=== PATIENT | male | born 1935 | race Caucasian/White ===

== ENCOUNTER 2016-10-26 13:46 | Inpatient (IN) | payer MEDICARE, BC ==
--- NOTE | 2016-10-26 15:31 | ERNOTE ---
Date of Service: 10/26/16 Time Seen by Provider: 10/26/16 15:04 Stated Complaint: URI Presenting Symptoms:: cough, runny nose Source: patient Exam Limitations: no limitations Immunizations: IMMUNIZATION HX Immunizations Up to Date Yes History of Influenza Vaccine No Hx Pneumococcal Vaccination Yes Allergies/Adverse Reactions: Allergies Penicillins Adverse Reaction (Severe, Verified 10/26/16 13:58) Hives sulfamethoxazole [From Bactrim] Adverse Reaction (Severe, Verified 10/26/16 13: 58) Vomiting trimethoprim [From Bactrim] Adverse Reaction (Severe, Verified 10/26/16 13:58) Vomiting Home Medications: HOME MEDICATIONS amLODIPine BESYLATE [Norvasc] 5 mg PO DAILY 12/06/14 [Last Taken 10/25/16] Leflunomide 20 mg PO DAILY 03/15/16 [Last Taken 10/25/16] Aspirin 81 mg PO DAILY #30 tab.chew 03/16/16 [Last Taken 10/25/16] predniSONE [Prednisone] 10 mg PO DAILY 06/17/16 [Last Taken 10/25/16] Fluocinonide 15 gm TP DAILY 10/26/16 [Last Taken 10/25/16] Sertraline HCl [Zoloft] 50 mg PO DAILY 10/26/16 [Last Taken 10/25/16] - History of Present Ilness Narrative: Pt. comes in with son and and c/o cough, chest congestion, nasal congestion , and rhinorrhea for three days. Pt. is hard of hearing and had a cochlear implant placed in june and pt. family states that he has also been more confused since this time. Family denies any SOB or fever but does state that pt. was wandering yesterday and thety feel that he is unsafe. Review of Systems - Review of Systems Constitutional: Present: weakness - chronic. Absent: recent illness, fever, chills, fatigue, malaise EYE: Present: no symptoms reported ENT: Present: nose congestion, nasal drainage. Absent: ear pain, sore throat Respiratory: Present: cough. Absent: shortness of breath, wheezing Cardiology: Present: no symptoms reported. Absent: chest pain, palpitations, edema Gastrointestinal/Abdominal: Present: no symptoms reported. Absent: nausea, vomiting, diarrhea, abdominal pain Genitourinary: Present: no symptoms reported Musculoskeletal: Present: no symptoms reported Skin: Present: rash - chronic Neurological: Present: pre-existing deficit, other - confusion and tics. Absent : headache, dizziness/light-headedness, numbness, tingling All Other Systems: All systems neg except as marked - Patient's Past Medical History Patient History - Medical: Arthritis, Dementia Patient History - Cardiac/Respiratory: Aneurysm, Coronary Heart Disease, COPD, Hypertension, Pneumonia, Peripheral Vascular Disease, Other Patient History - Cancer: No Hx of Cancer Patient History - Surgical Procedures: Cataracts, Other - Family History Mother Family History - Medical: , Alzheimer's Disease Father Family History - Medical: - Social History Living Situations: spouse Smoking Status: Never smoker Have you smoked in the past 12 months: No Alcohol Use: none Drug Use: none Physical Exam - Physical Exam General Appearance: Present: wd/wn, alert, no apparent distress Eye Exam: Normal inspection: bilateral, PERRL: bilateral, EOMI: bilateral Ears, Nose, Throat: Present: nasal congestion, pharyngeal erythema, tonsillar exudate - white. Absent: sinus pain/drainage Neck: Present: normal inspection, nontender. Absent: lymphadenopathy (R), lymphadenopathy (L) Respiratory: Present: no respiratory distress, normal breath sounds, no accessory muscle use, chest nontender, lungs clear Cardiovascular/Chest: Present: regular rate, rhythm, no murmur, normal peripheral pulses Gastrointestinal/Abdominal: Present: normal bowel sounds, nontender, nondistended, soft, no organomegaly Back Exam: Present: normal inspection, normal range of motion, no CVA tenderness , no vertebral tenderness Extremity Exam: Present: normal inspection, non-tender, no edema, normal range of motion Neurological Exam: Present: normal mood/affect, motor weakness - generalized, disoriented to time, disoriented to place, disoriented to situation. Absent: alert, oriented, no motor/sensory deficits, normal cerebellar test, facial droop Skin Exam: Present: warm/dry, pallor, skin rash - on trunk ant and post ED Progress - Date and Time Seen: Date and Time: 10/26/16 18:[address] Putnam and as pt. is stable and none of his problems are overtly acute but semi acute if not remote will admit to this facility for observation. - Results and Orders Patient's Lab Results:: I have reviewed the patient's lab results. - Vital Signs Patient's Vital Signs:: I have reviewed the patient's vital signs. Vital Signs: Vital Signs 10/26/16 13:50 Temperature 36.8 C Pulse Rate 85 Respiratory 16 Rate Blood Pressure 123/81 O2 Sat by Pulse 95 Oximetry - X-Ray X-Ray #1 X-Ray: chest Interpretation: Reviewed by me X-ray Comments: no acute cardiopulmonary process - CT/Ultrasound CT/Ultrasound Narrative: CT head: Findings: CT Head W/O Contrast *: Exam is degraded by significant streak artifact related to a right temporal bone implant. Age-related cortical atrophy and periventricular white matter chronic ischemic changes are present. There is mild disproportionate ventricular enlargement relative to the degree of cortical atrophy. No acute intracranial hemorrhage. No midline shift or herniation. No mass or mass effect. The cortical wong/white matter differentiation is grossly intact. Benign intracranial calcifications noted. Changes from right canal wall up mastoidectomy. There is opacification of the right mastoid air cells. The tip of the implant lead terminates at the level of the right mastoid air cell cavity, grossly unchanged in positioning as compared to the prior exam. The visualized pneumatized portions of the skull are otherwise clear. The calvarium is intact. Soft tissues appear to be unremarkable. IMPRESSION: No acute intracranial hemorrhage or mass effect. Cortical atrophy. Mild disproportionate ventricular enlargement relative to the degree of cortical atrophy; correlate for normal pressure hydrocephalus. Chronic microvascular ischemic white matter disease. Additional findings and comments are as above. Electronically signed by David Pinto D.O.. - Progress/Reassessment Chief Complaint: Upper Respiratory Symptoms Departure - Departure Clinical Impression: Normal pressure hydrocephalus, Dehydration UTI (urinary tract infection) Qualifiers: Urinary tract infection type: acute cystitis Hematuria presence: without hematuria Qualified Code(s): N30.00 - Acute cystitis without hematuria Altered mental status Qualifiers: Altered mental status type: disorientation Qualified Code(s): R41.0 - Disorientation, unspecified Disposition: [facility] Condition: Fair
[2016-10-26 15:47] LABS: Hemoglobin 13.3 gm/dL (13.5-18.0); Mean Cell Volume 78.4 fl (78-100); Mean Corpuscular Hemoglobin 25.4 pg (27-31); Mean Corpuscular Hgb Conc 32.4 g/dl (32-36); Neutrophil # 6.1 K/mm3 (1.3-6.0); Neutrophil % 76.6 % (42-75.0); Platelet Count 243 K/mm3 (150-450); Red Blood Count 5.23 M/mm3 (4.7-6.0)
[2016-10-26 16:19] LABS: Anion Gap 14.1 mmol/L (6.8-13.8); BUN/Creatinine Ratio 17.8 (9.0-21.6); Bilirubin, Total 0.3 mg/dL (0.0-1.1); Ca. Corrected For Albumin 9.5 mg/dL (8.4-10.2); Carbon Dioxide 24.8 mmol/L (24-32.6); Potassium 3.9 mmol/L (3.4-4.6); Total Protein 7.6 gm/dL (6.2-8.2)
[2016-10-26 16:21] LABS: CRP 13.8 mg/dL (0.0-0.9)
[2016-10-26] MEDS ORDERED: NORMAL SALINE 1,000 ML IV ONE (16:24)
[2016-10-26 17:13] LABS: Urine Bilirubin Negative (NEGATIVE); Urine Blood 50 /ul (NEGATIVE); Urine Ketone Negative (NEGATIVE); Urine Protein 100 mg/dL (NEGATIVE); Urine Specific Gravity >=1.030 SP.GR. (1.005-1.030); Urine Urobilinogen Normal (NORMAL)
[2016-10-26 17:39] LABS: Urine Color Yellow; Urine Nitrite Positive (NEGATIVE)
[2016-10-26 17:40] LABS: Urine Appearance Turbid; Urine Bacteria 1+; Urine Fine Granular Cast 0-5 /LPF; Urine Hyaline Cast 0-5 /LPF; Urine WBC >50 /hpf (0-5)
[2016-10-26] MEDS: CIPROFLOXACIN LACTATE/D5W 400 MG/200 ML BAG IV SCH (18:16)
[2016-10-26] MEDS: DEXTROSE 5%-0.5 NORMAL SALINE 1,000 ML IV PRN (20:37)
--- NOTE | 2016-10-26 21:29 | HP ---
Chief Complaint - Chief Complaint Date of Service: 10/26/16 Time of Service: 21:00 Chief Complaint: cough, AMS History of Present Illness: Pt is an 80 year old male pt of Dr. Boyce with a PMH significant for:COPD, renal dx, RA, CAD, and HTN who presented to ER with son and with c/o cough , chest congestion, nasal congestion, and rhinorrhea for the past three days. Unfortunately pt does not have any family with him at present time and is only alert to self, therefore most information obtained is from EMR and prior records. Per EMR pt is hard of hearing and had a cochlear implant placed in June, pt family states that he has been more confused since then. Family denies any SOB, CP, n/v/d or fever. Chest xray was without any acute abnormalities. Laboratory findings were significant for: BUN/Creat 26/1.46, ESR 82, CRP 13.8, negative influenza, UA + (+1 bacteria, +nitrates, 100 esterase). He will be admitted to in pt observation for treatment of urinary tract infection with IV antibiotics and IV hydration. - Patient's Past Medical History Patient History - Medical: Arthritis, Dementia Patient History - Cardiac/Respiratory: Aneurysm, Coronary Heart Disease, COPD, Hypertension, Pneumonia, Peripheral Vascular Disease, Other Patient History - Cancer: No Hx of Cancer Patient History - Surgical Procedures: Cataracts, Other - cochlear implant 2015 Patient History - Other: None - Family History Mother Family History - Medical: , Alzheimer's Disease Family History - Cancer: Other - uterine Father Family History - Medical: Family History - Cancer: Throat - Social History Living Situations: spouse Does anyone smoke in the home?: No Smoking Status: Former smoker Have you smoked in the past 12 months: No Alcohol Use: none Drug Use: none - Immunizations Immunizations Up to Date: Yes Hx Pneumococcal Vaccination: Yes History of Influenza Vaccine: Yes Review Of Systems (GEN) - Review of Systems Generalized/Overall Review: Present: No Symptoms Reported EENTM: Present: Nose Congestion, Throat Pain Respiratory: Present: Cough Cardiac: Present: No Symptoms Reported Abdominal: Present: No Symptoms Reported Genitourinary: Present: No Symptoms Reported Musculoskeletal: Present: Joint Pain - hx of RA Neurological: Present: No Symptoms Reported Skin: Present: No Symptoms Reported Endocrine: Present: No Symptoms Reported Allergies/Adverse Reactions: Allergies Allergy/AdvReac Type Severity Reaction Status Date / Time Penicillins AdvReac Severe Hives Verified 10/27/16 01:34 sulfamethoxazole AdvReac Severe Vomiting Verified 10/27/16 01:34 [From Bactrim] trimethoprim [From Bactrim] AdvReac Severe Vomiting Verified 10/27/16 01:34 Home Medications: HOME MEDICATIONS amLODIPine BESYLATE [Norvasc] 5 mg PO DAILY 12/06/14 [Last Taken 10/25/16] Leflunomide 20 mg PO DAILY 03/15/16 [Last Taken 10/25/16] Aspirin 81 mg PO DAILY #30 tab.chew 03/16/16 [Last Taken 10/25/16] predniSONE [Prednisone] 10 mg PO DAILY 06/17/16 [Last Taken 10/25/16] Fluocinonide 15 gm TP DAILY 10/26/16 [Last Taken 10/25/16] Sertraline HCl [Zoloft] 50 mg PO DAILY 10/26/16 [Last Taken 10/25/16] Exam - Exam Vital Signs: Vital Signs - Last Taken Temp 36.8 C 10/26/16 19:10 Pulse 70 10/26/16 19:10 Resp 16 10/26/16 19:10 BP 146/68 10/26/16 19:10 Pulse Ox 96 RA 10/26/16 19:10 Constitutional: Present: Alert, Cooperative, No distress, Elderly ENT Exam: Present: hard of hearing - Cochlear implant in place on right, nasal congestion, muffled/hoarse voice Eye Exam: bilateral eye: normal inspection, PERRL Neck: Present: non-tender Back Exam: Present: normal inspection, no CVA tenderness Respiratory: Present: no respiratory distress, no accessory muscle use, decreased breath sounds, rhonchi - posterior and anterior right lung mendoza Cardiovascular/Chest: Present: normal peripheral pulses, regular rate, rhythm, no murmur Peripheral Pulses: dorsalis-pedis (R): 2+, dorsalis-pedis (L): 2+, radial (R): 2 +, radial (L): 2+ Abdomen: Present: Normal bowel sounds, soft, nontender, nondistended Extremity: Present: normal range of motion, non-tender, normal inspection, no pedal edema, no calf tenderness, normal capillary refill Skin Exam: Present: normal color, warm/dry, no cyanosis Lymphatic: Present: no adenopathy Neurologic: Present: motor weakness, disoriented x 3 Appearance: Present: denies illness, impaired insight, impaired recent memory Eye contact: Present: cooperative, good eye contact, normal speech Thoughts: Present: no apparent hallucination Diagnostic Studies: Laboratory Results Laboratory Tests 10/26/16 10/26/16 10/26/16 15:36 15:36 15:36 WBC 8.0 Hgb 13.3 L Hct 41.0 L Plt Count 243 Neutrophils % 76.6 H Lymphocytes % 8.9 L Monocytes % 12.2 H ESR 82 H Sodium 137 Potassium 3.9 BUN 26 H Creatinine 1.46 H Lactic Acid, Venous Total Bilirubin 0.3 AST 19 ALT 23 Alkaline Phosphatase 92 C-Reactive Prot, Quant 13.8 H Urine Appearance Urine Protein Urine Blood Urine Nitrate Prot Sulfosalicylic Acd Ur Leukocyte Esterase Urine RBC Urine WBC Urine Bacteria Hyaline Casts Fine Granular Casts Urine Culture Comments 10/26/16 10/26/16 15:36 16:00 WBC Hgb Hct Plt Count Neutrophils % Lymphocytes % Monocytes % ESR Sodium Potassium BUN Creatinine Lactic Acid, Venous 1.4 Total Bilirubin AST ALT Alkaline Phosphatase C-Reactive Prot, Quant Urine Appearance Turbid Urine Protein 100 H Urine Blood 50 H Urine Nitrate Positive H Prot Sulfosalicylic Acd 3+ H Ur Leukocyte Esterase 100 H Urine RBC 5-10 H Urine WBC >50 H Urine Bacteria 1+ H Hyaline Casts 0-5 H Fine Granular Casts 0-5 H Urine Culture Comments Culture to follow Assessment/Plan - Assessment/Plan (1) Altered mental status Assessment: Likely a multiple factorial component related to UTI and worsening underlying dementia. + family history of Alzheimer dx. Will continue to closely monitor. Head CT with mild disproportionate ventricular enlargement relative to the degree of cortical atrophy. Possible normal pressure hydrocephalus? Problem: Acute Qualifiers: Altered mental status type: disorientation Qualified Code(s): R41.0 - Disorientation, unspecified (2) Dehydration Assessment: Will continue with IVF overnight. -D5.45 @125ml/hr Problem: Acute (3) UTI (urinary tract infection) Assessment: Urine culture pending. -Cipro 400mg daily IV Problem: Acute Qualifiers: Urinary tract infection type: acute cystitis Hematuria presence: without hematuria Qualified Code(s): N30.00 - Acute cystitis without hematuria (4) Rheumatoid arthritis Assessment: Stable -Prednisone 10mg daily -Arava 20mg PO daily Problem: Chronic (5) Stage III chronic kidney disease Assessment: BUN/Creat is slightly elevated at 26/1.46, baseline is around 1.4. Will treat with IV fluid overnight and repeat labs in the am. Limit any nephro toxic drugs. -CMP in am -MIVF Problem: Chronic
[2016-10-27] MEDS: CIPROFLOXACIN LACTATE/D5W 400 MG/200 ML BAG IV SCH ×2 (05:42→17:12)
[2016-10-27 07:09] LABS: Hematocrit 36.3 % (42.0-52.0); Hemoglobin 11.6 gm/dL (13.5-18.0); Mean Cell Volume 79.3 fl (78-100); Mean Corpuscular Hemoglobin 25.3 pg (27-31); Mean Platelet Volume 9.2 fl (6.0-9.5); Neutrophil % 71.5 % (42-75.0); Platelet Count 171 K/mm3 (150-450); Red Blood Count 4.58 M/mm3 (4.7-6.0); Red Cell Distribution Width 17.8 % (11.5-14.0)
[2016-10-27 07:32] LABS: Albumin * 2.6 gm/dl (3.4-5.0); BUN/Creatinine Ratio 16.8 (9.0-21.6); Bilirubin, Total 0.2 mg/dL (0.0-1.1); Ca. Corrected For Albumin 9.2 mg/dL (8.4-10.2); Calcium * 8.4 mg/dL (7.9-10.9); Carbon Dioxide 22.7 mmol/L (24-32.6); Potassium 3.7 mmol/L (3.4-4.6); Total Protein 6.6 gm/dL (6.2-8.2)
[2016-10-27] MEDS ORDERED: FLUOCINONIDE APPL TP SCH (09:00)
[2016-10-27] MEDS: ASPIRIN 81 MG TAB.CHEW PO SCH (09:48)
[2016-10-27] MEDS: SERTRALINE HCL 50 MG TABLET PO SCH (09:48)
[2016-10-27] MEDS: predniSONE 10 MG TABLET PO SCH (09:48)
[2016-10-27] MEDS: amLODIPine BESYLATE 5 MG TABLET PO SCH (09:48)
[2016-10-27] MEDS: LEFLUNOMIDE 20 MG TABLET PO SCH (09:48)
[2016-10-27] MEDS: FLUOCINONIDE 15 APPL TUBE TP SCH (09:49)
[2016-10-27] MEDS: NYSTATIN 15 APPL BTL TP SCH ×2 (09:49→20:22)
[2016-10-27] MEDS: DEXTROSE 5%-0.5 NORMAL SALINE 1,000 ML IV PRN ×2 (10:58→19:55)
--- NOTE | 2016-10-27 12:36 | PN ---
Subjective - Date and Time Seen Date: 10/27/16 Time: 12:31 Subjective Narrative: Patient is totally confused. His urine is grwing Gram negative bacili. BC is pending. answers most of my questions with just "yup"s Objective - Review of Systems Generalized/Overall Review: Reports: No Symptoms Reported EENTM: Reports: No Symptoms Reported Respiratory: Reports: No Symptoms Reported Cardiac: Reports: No Symptoms Reported Abdominal: Reports: No Symptoms Reported Genitourinary Symptoms: Reports: No Symptoms Reported Musculoskeletal Complaints: Reports: No Symptoms Reported Neurological: Reports: No Symptoms Reported Skin: Reports: No Symptoms Reported Endocrine: Reports: No Symptoms Reported Misc: All systems neg except as marked - ROS is is unreliable due to his mental status - Vitals Vitals: Last Vital Signs Temp 37 C 10/27/16 10:49 Pulse 82 10/27/16 10:49 Resp 18 10/27/16 10:49 BP 146/68 10/27/16 10:49 Pulse Ox 96 10/27/16 10:49 - Exam Constitutional: Present: Alert - AAO x 1 ENT Exam: Present: hearing grossly normal Neck: Present: supple Breasts: Present: Exam deferred Respiratory: Present: decreased breath sounds, No rales, No wheezing Cardiovascular/Chest: Present: regular rate, rhythm, no JVD, no murmur Abdomen: Present: Normal bowel sounds, soft, nontender, nondistended Extremity: Present: no pedal edema, no calf tenderness Assessment/Plan - Problems/Diagnosis (1) Altered mental status Problem: Acute Qualifiers: Altered mental status type: disorientation Qualified Code(s): R41.0 - Disorientation, unspecified Narrative: due to acute toxic/metabolic encephalopathy. I do not see in his PMH a h/o dementia. UCS is growing Gram Negative Bacili . BC is pending. will transfer [facility] 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 (2) Dehydration Problem: Acute (3) UTI (urinary tract infection) Problem: Acute Qualifiers: Urinary tract infection type: acute cystitis Hematuria presence: without hematuria Qualified Code(s): N30.00 - Acute cystitis without hematuria (4) Rheumatoid arthritis Problem: Chronic Qualifiers: Rheumatoid arthritis location: multiple sites Qualified Code(s): M05.79 - Rheumatoid arthritis with rheumatoid factor of multiple sites without organ or systems involvement
[2016-10-28] MEDS: CIPROFLOXACIN LACTATE/D5W 400 MG/200 ML BAG IV SCH ×2 (05:01→17:42)
[2016-10-28] MEDS: DEXTROSE 5%-0.5 NORMAL SALINE 1,000 ML IV PRN (08:33)
[2016-10-28] MEDS: LEFLUNOMIDE 20 MG TABLET PO SCH (08:35)
[2016-10-28] MEDS: NYSTATIN 15 APPL BTL TP SCH ×2 (08:35→20:43)
[2016-10-28] MEDS: SERTRALINE HCL 50 MG TABLET PO SCH (08:35)
[2016-10-28] MEDS: predniSONE 10 MG TABLET PO SCH (08:35)
[2016-10-28] MEDS: amLODIPine BESYLATE 5 MG TABLET PO SCH (08:35)
[2016-10-28] MEDS: ASPIRIN 81 MG TAB.CHEW PO SCH (08:35)
[2016-10-28] MEDS: FLUOCINONIDE 15 APPL TUBE TP SCH (08:36)
--- NOTE | 2016-10-28 08:38 | PN ---
Subjective - Date and Time Seen Date: 10/28/16 Time: 08:33 Subjective Narrative: Patient clover entorely hear me. Hearing aide not working. per Nurse still AAO x 1. Objective - Review of Systems Generalized/Overall Review: Reports: No Symptoms Reported EENTM: Reports: No Symptoms Reported Respiratory: Reports: No Symptoms Reported Cardiac: Reports: No Symptoms Reported Abdominal: Reports: No Symptoms Reported Genitourinary Symptoms: Reports: No Symptoms Reported Musculoskeletal Complaints: Reports: No Symptoms Reported Neurological: Reports: No Symptoms Reported Skin: Reports: No Symptoms Reported Endocrine: Reports: No Symptoms Reported Misc: All systems neg except as marked - ROS are unobtainable. - Vitals Vitals: Last Vital Signs Temp 36.8 C 10/28/16 03:00 Pulse 55 L 10/28/16 03:00 Resp 18 10/28/16 03:00 BP 127/62 10/28/16 03:00 Pulse Ox 99 10/28/16 03:00 - Exam Constitutional: Present: Alert - AAO x 1, Cooperative ENT Exam: Present: other - cannot hear at today Neck: Present: supple Breasts: Present: Exam deferred Respiratory: Present: decreased breath sounds, No rales, No wheezing Cardiovascular/Chest: Present: regular rate, rhythm, no JVD, no murmur Abdomen: Present: Normal bowel sounds, soft, nontender, nondistended Extremity: Present: no pedal edema, no calf tenderness Assessment/Plan - Problems/Diagnosis (1) Altered mental status Problem: Acute Qualifiers: Altered mental status type: disorientation Qualified Code(s): R41.0 - Disorientation, unspecified Narrative: due to acute toxic/metabolic encephalopathy on top of probable underlying dementia or beginning dementia. (2) Dehydration Problem: Resolved (3) UTI (urinary tract infection) Problem: Acute Qualifiers: Urinary tract infection type: acute cystitis Hematuria presence: without hematuria Qualified Code(s): N30.00 - Acute cystitis without hematuria (4) Rheumatoid arthritis Problem: Chronic Qualifiers: Rheumatoid arthritis location: multiple sites Rheumatoid factor presence: with rheumatoid factor Qualified Code(s): M05.79 - Rheumatoid arthritis with rheumatoid factor of multiple sites without organ or systems involvement
[2016-10-28] MEDS: ENOXAPARIN SODIUM 40 MG/0.4 ML SYRG SC SCH (09:20)
[2016-10-28] MEDS ORDERED: LORazepam 2 MG/ML DISP.SYRIN IV ONE (09:37)
[2016-10-28] MEDS: LORazepam 0.5 MG TABLET PO PRN (23:02)
[2016-10-29] MEDS: CIPROFLOXACIN LACTATE/D5W 400 MG/200 ML BAG IV SCH (05:44)
[2016-10-29 07:46] LABS: Hematocrit 36.2 % (42.0-52.0); Hemoglobin 11.7 gm/dL (13.5-18.0); Mean Cell Volume 78.9 fl (78-100); Mean Corpuscular Hemoglobin 25.5 pg (27-31); Mean Corpuscular Hgb Conc 32.3 g/dl (32-36); Mean Platelet Volume 10.1 fl (6.0-9.5); Neutrophil # 6.4 K/mm3 (1.3-6.0); Neutrophil % 76.5 % (42-75.0); Platelet Count 210 K/mm3 (150-450); Red Blood Count 4.59 M/mm3 (4.7-6.0); Red Cell Distribution Width 17.4 % (11.5-14.0); White Blood Count 8.4 K/mm3 (4.0-10.5)
[2016-10-29 07:51] LABS: Anion Gap 14.6 mmol/L (6.8-13.8); Calcium * 8.7 mg/dL (7.9-10.9); Potassium 3.6 mmol/L (3.4-4.6)
[2016-10-29] MEDS: SERTRALINE HCL 50 MG TABLET PO SCH (08:47)
[2016-10-29] MEDS: ENOXAPARIN SODIUM 40 MG/0.4 ML SYRG SC SCH (08:47)
[2016-10-29] MEDS: ASPIRIN 81 MG TAB.CHEW PO SCH (08:47)
[2016-10-29] MEDS: LEFLUNOMIDE 20 MG TABLET PO SCH (08:47)
[2016-10-29] MEDS: amLODIPine BESYLATE 5 MG TABLET PO SCH (08:47)
[2016-10-29] MEDS: FLUOCINONIDE 15 APPL TUBE TP SCH (08:48)
[2016-10-29] MEDS: NYSTATIN 15 APPL BTL TP SCH (08:48)
[2016-10-29] MEDS: predniSONE 10 MG TABLET PO SCH (08:48)
--- NOTE | 2016-10-29 09:55 | DS ---
(1) Altered mental status Diagnosis(s): acute encephalopathy toxic/metabolic over a baseline dementia. Problem: Acute Qualifiers: Altered mental status type: disorientation Qualified Code(s): R41.0 - Disorientation, unspecified (2) Dehydration Diagnosis(s): Pseudomonas Aeroginosa on culture. Problem: Resolved (3) UTI (urinary tract infection) Problem: Acute Qualifiers: Urinary tract infection type: acute cystitis Hematuria presence: without hematuria Qualified Code(s): N30.00 - Acute cystitis without hematuria (4) Rheumatoid arthritis Problem: Chronic Qualifiers: Rheumatoid arthritis location: multiple sites Rheumatoid factor presence: with rheumatoid factor Qualified Code(s): M05.79 - Rheumatoid arthritis with rheumatoid factor of multiple sites without organ or systems involvement Description of Stay: Emir Robbins, is an 80 year old male with a PMH significant for:COPD, renal dx, RA, CAD, and HTN who presented to ER on 10/26/2016with son and with c/o cough, chest congestion, nasal congestion, and rhinorrhea for the past three days. Unfortunately pt does not have any family with him when seen and was only alert to self, therefore most information obtained was from EMR and prior records. Per EMR pt is hard of hearing and had a cochlear implant placed in June, pt family states that he has been more confused since then. Family denies any SOB, CP, n/v/d or fever. Chest xray was without any acute abnormalities. Laboratory findings were significant for: BUN/Creat 26/1.46, ESR 82, CRP 13.8, negative influenza, UA + (+1 bacteria, +nitrates, 100 esterase). He will be admitted to in pt observation for treatment of urinary tract infection with IV antibiotics and IV hydration. He continued to be confused while in the floor. His urine grew Pseudomonas aeroginosa sensitive to the Cipro he was getting. His BC showed NG in 48 hours. The patient is wanting to go home and I agree as his confusion might get a little better with a familiar home environement. he will have home health. He will likely will be needing NH placement in the near future. Procedures Performed: none Discharge Disposition: Home self care Disposition: Home self-care Condition: Fair Discharge Activity: Activity as tolerated Discharge Diet: General/regular food Referrals: Mauricio Boyce MD [Primary Care Provider] - Additional Patient Instructions (free text): TCM appointment. Call Margaret at [phone] with follow up. Refer to HH. Follow up with me in 1 week. Please make an appointment with Dr. Victor as an outpatient for generalized anxiety disorder. Prescriptions (Any new or edited meds): Ciprofloxacin HCl [Cipro] 500 mg PO BID #14 tab LORazepam [Ativan] 0.25 mg PO BID PRN #30 tablet PRN Reason: Anxiety Complete Home Medications List: Complete Home Medication List: amLODIPine BESYLATE [Norvasc] 5 mg PO DAILY 12/06/14 Leflunomide 20 mg PO DAILY 03/15/16 Aspirin 81 mg PO DAILY #30 tab.chew 03/16/16 predniSONE [Prednisone] 10 mg PO DAILY 06/17/16 Fluocinonide 15 gm TP DAILY 10/26/16 Sertraline HCl [Zoloft] 50 mg PO DAILY 10/26/16 Ciprofloxacin HCl [Cipro] 500 mg PO BID #14 tab 10/29/16 LORazepam [Ativan] 0.25 mg PO BID PRN #30 tablet 10/29/16
[2016-10-29 09:57] VITALS: BP 158/83
[2016-10-29] MEDS: LORazepam 0.5 MG TABLET PO PRN (12:53)
== END 2016-10-29 15:55 | disposition home or self-care (01) | DRG 689 ==
LOC: ER 13:46 → MS 18:15 → OBSVTOIN 10-27 11:25
PROVIDERS: ADMIT Internal Medicine; ATTEND Internal Medicine
DX: N30.00 Acute cystitis without hematuria (principal); G92 Toxic encephalopathy; B96.5 Pseudomonas (aeruginosa) (mallei) (pseudomallei) as the cause of diseases classified elsewhere; E86.0 Dehydration; I12.9 Hypertensive chronic kidney disease with stage 1 through stage 4 chronic kidney disease, or unspecified chronic kidney disease; N18.3 Chronic kidney disease, stage 3 (moderate); M05.79 Rheumatoid arthritis with rheumatoid factor of multiple sites without organ or systems involvement; Z96.21 Cochlear implant status; F03.90 Unspecified dementia, unspecified severity, without behavioral disturbance, psychotic disturbance, mood disturbance, and anxiety
CPT/HCPCS: 36415; 70450; 71020; 80048; 80053; 81001; 83605; 85025; 85652; 86140; 87040; 87077; 87081; 87086; 87186; 87400; 96365; 97116; 97162; 97530; 99283; G0378

== ENCOUNTER 2016-11-19 14:53 | Emergency (ER) | payer MEDICARE, BC ==
[2016-11-19 15:12] VITALS: BP 146/71
--- OUTSIDE RECORDS SUMMARY | 2016-11-19 16:23 | XMS REPORT | Continuity of Care Document ---
:1935 Author Organization [facility] ([facility]) Address [address] [place] [address] Phone [phone] Care Team Providers Name Role Phone Hosp, [place] Primary Care Provider [phone] Source Comments This disclosure is being made pursuant to the Care Everywhere program, applicable federal and state laws, and may not contain all informaitonavailable regarding this patient.[facility] ([facility]) Active Allergies and Adverse Reactions Allergen Noted Date Severity Reactions Comments Penicillin G Urticaria (Hives) Sulfamethoprim Ss 09/15/2015 Other Non-Immunologic Bactrim: Pt taking Reaction Methotrexate. Current Medications Prescription Sig. Disp. Refills Start Date End Date Status amLODIPine (NORVASC) take 5 mg by mouth Active 5 mg tablet daily. aspirin (ASPIR-81) 81 take 81 mg by Active mg EC tablet mouth daily. ACETAMINOPHEN take 1-2 Tabs by Active (TYLENOL ARTHRITIS mouth as needed. PO) VIT C/KARYN Take by mouth Active AC/LUT/COPPER/ZNOX daily. (PRESERVISION LUTEIN PO) albuterol-ipratropium Use 3 mL by Active 2.5-0.5 mg/3 mL inhalation every 6 inhalation solution hours as needed. albuterol PO Take 90 mcg by Active mouth every 6 hours as needed. fluticasone 50 Use 2 Sprays into Active mcg/Actuation nasal both nostrils spray daily. traMADol 50 mg tablet Take 50 mg by Active mouth 4 times daily as needed. leflunomide 20 mg Take 1 tablet (20 30 tablet 5 03/31/2016 Active tablet mg total) by mouth daily. doxycycline hyclate Take 1 capsule 30 capsule 11 04/14/2016 Active 100 mg capsule (100 mg total) by mouth every Tuesday, Tuesday, and Tuesday. acetaminophen 500 mg Take 1 tablet (500 60 tablet 11 07/02/2016 Active tablet mg total) by mouth every 6 hours as needed. traMADol 50 mg tablet Take 1 tablet (50 30 tablet 2 07/02/2016 Active mg total) by mouth 4 times daily as needed. acetaminophen 325 mg Take 2 tablets 60 tablet 3 07/02/2016 Active tablet (650 mg total) by mouth every 4 hours as needed. traMADol 50 mg tablet Take 1 tablet (50 30 tablet 0 07/02/2016 Active mg total) by mouth every 6 hours as needed. predniSONE 20 mg Take 0.5 tablets 60 tablet 1 07/02/2016 Active tablet (10 mg total) by mouth daily. docusate (COLACE) 100 Take 1 capsule 60 capsule 0 07/03/2016 Active mg capsule (100 mg total) by mouth 2 times daily as needed. SERTraline 50 mg 1 tablet daily. 4 09/11/2016 Active tablet fluocinoNIDE 0.1 % 2 10/09/2016 Active cream Active Problems Problem Noted Date Eczema of both upper extremities 10/18/2016 Overview: And on trunk, legs. Followed by PARRISH Lopez. Decreased hearing 06/23/2016 Sudden hearing loss 03/20/2014 Imbalance 03/20/2014 Profound hearing loss of left ear 03/20/2014 Macular degeneration, bilateral 09/08/2011 Overview: Per ophthalmology note 08/2011, Dr. Abraham (see media). 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 RF+, CCP+, erosions on plain films (wrists, MCP. PIP, MTP) Rx history: Salsalate since ~2005 prior to diagnosis from outside, helpful for the swelling and pain. Methotrexate 03/2009 - 01/2016, dc'ed for nausea and dizziness. Switched to leflunomide. Hydroxychloroquine 03/2009 - 08/2011 dc'd for eye concerns (last eye exam: 07/09, Dr. Abraham, report in media) Sulfasalazine 11/2010 - Leflunomide - Hypertension 04/03/2009 Erectile dysfunction 04/03/2009 Gout - possible 04/03/2009 Overview: Not crystal proven. Therapy: On allopurinol for years, increase allopurinol from 100mg/day to 300mg/day on 03/31/09 [uric acid=6.0mg/dl]. Last attack? Possible ankle, Oct 2010. Osteoarthritis 04/03/2009 Cerebral atherosclerosis 10/01/2008 Aneurysm of artery of lower extremity 10/01/2008 Abdominal aneurysm without mention of rupture 10/01/2008 Overview: Vascular risk factors: H/o smoking, Hypertension and AAA-6.8, Oct 2008. Cardiac History: None Vascular Procedures: 10/16/08 s/p EVAR with Laverne device (body 23x18 and contra limb on the RT with 14.5x14 device) Pre-close bilaterally groins 10/16/08 LT common iliac stent during same time with EVAR Antithrombotic Therapy: ASA daily started Sep 2008, not currently on a statin Aorta Screen: AAA, 6.8cm on outside CT, s/p EVAR Oct 2008 Carotid Screen: 0-15% bilateral Popliteal aneurysm: no aneurysmal disease on duplex at previous visit 04/02/14: No endoleak on US, patent graft Resolved Problems Problem Noted Date Resolved Date Pain in joint, hand 01/20/2009 04/03/2009 Peripheral vascular disease, unspecified 10/01/2008 04/03/2009 Most Recent Encounters Date Type Specialty Providers Description 11/15/2016 Office Visit Audiology Michael Chavarria MD Dx: Sensorineural William, Chelle A hearing loss, bilateral (Primary Dx) 11/12/2016 Orders/Notes Internal Medicine - Margaret Baumann, Primary CHILDCARE DIRECTOR 10/18/2016 Office Visit Internal Medicine - Leonidas Esqueda MD Chief Comp: Patient Primary Margaret Baumann, Reported Reason For CHILDCARE DIRECTOR Visit 10/18/2016 Office Visit Pathology Talia Harris Chief Comp: Patient MD Carlos Manuel Reported Reason For Lab Services, Pfp Visit 10/18/2016 Office Visit Med Rheumatology Talia Harris Dx: Rheumatoid MD Carlos Manuel arthritis with rheumatoid factor of multiple sites without organ or systems involvement (Primary Dx) 10/14/2016 Telephone Internal Medicine - Margaret Baumann, Chief Comp: Labs Only Primary CHILDCARE DIRECTOR 10/14/2016 Orders/Notes Internal Medicine - Margaret Baumann, Dx: Iron deficiency Primary CHILDCARE DIRECTOR anemia (Primary Dx) 08/26/2016 Office Visit Audiology Michael Chavarria MD Dx: Sensorineural Chelle Thomas hearing loss, bilateral (Primary Dx) Immunizations Name Dates Previously Given Next Due Influenza, high dose 10/18/2016 Influenza, unspecified 07/14/2015,07/10/2013,06/28/2012,07/11,10/16/2008 Pneumococcal Conjugate, PCV13 (Prevnar 10/22/2015 13) Pneumococcal Polysaccharide, PPSV23 08/05/2016 (Pneumovax 23) Social History Tobacco Use Types Packs/Day Years Used Date Former Smoker Cigarettes 1 55 Quit: 06/10/2007 Smokeless Tobacco: Never Used Tobacco Cessation:Counseling Given: Yes Comments:quit 2006. Alcohol Use Drinks/Week oz/Week Comments No Last Filed Vital Signs Vital Sign Reading Time Taken Blood Pressure 147/65 10/18/2016 11:43 AM CONTACT CENTER ASSOCIATE Pulse 59 10/18/2016 11:43 AM CONTACT CENTER ASSOCIATE Temperature 36 C (96.8 F) 10/18/2016 11:43 AM CONTACT CENTER ASSOCIATE Respiratory Rate 15 07/03/2016 9:20 AM CDT Height 1.727 m (5' 7.99") 10/18/2016 11:43 AM CONTACT CENTER ASSOCIATE Weight 77.2 kg (170 lb 3.1 oz) 10/18/2016 11:43 AM CONTACT CENTER ASSOCIATE Body Mass Index 25.88 10/18/2016 11:43 AM CONTACT CENTER ASSOCIATE Oxygen Saturation 93% 08/12/2016 9:52 AM CDT Plan of Care Date Type Specialty Providers Description 01/18/2017 Appointment Med Rheumatology Talia Harris MD [address] [place] [address] [phone] (Fax) Chief Comp: Patient Marysol Gill PA-C [address] [place] [address] [phone] (Fax) Reported Reason For Visit 03/16/2017 Appointment Ophthalmology - Navneet Guillory, Chief Comp: Patient Specialty MD Reported Reason For [address] [place] [address] [phone] (Fax) 05/16/2017 Appointment Med Rheumatology Talia Harris Chief Comp: Patient MD Reported Reason For [address] [place] [address] [phone] (Fax) 05/18/2017 Appointment Ophthalmology - [address]ir [address], Chief Comp: Patient Specialty MD Reported Reason For [address] [place] [address] [phone] (Fax) Health Maintenance Due Date Last Done Comments Hepatitis B Vaccine (1 of 3 1935 - Primary Series) Tdap Vaccine 12/23/1946 Lipid Disorder Screening 12/23/1953 Td Vaccine 12/23/1953 Colonoscopy 12/23/1985 Zoster Vaccine 1995 Pneumococcal Vaccine Completed 08/05/2016, 10/22/2015 Influenza Vaccine: Seasonal Completed 10/18/2016, Additional history exists 07/14/2015, 07/10/2013 Results from Last 3 Months DIFFERENTIAL (10/18/2016 12:45 PM) Component Value Range % Neutrophils-Auto Diff 77.5 % Neutrophils-Auto Diff 9120(H) 4085-6885 /MM3 % Lymphocytes-Auto Diff 9.9 % Lymphocytes-Auto Diff 8659 009-0443 /MM3 % Monocytes-Auto Diff 8.3 % Monocytes-Auto Diff 980(H) 130-860 /MM3 % Eosinophils-Auto Diff 2.4 % Eosinophils-Auto Diff 280 40-390 /MM3 % Basophils 0.5 % Basophils-Auto Diff 60 10-136 /MM3 % Immature Granulocytes-Auto Diff 1.4 % Immature Granulocytes-Auto Diff 170 /MM3 Specimen Whole Blood CBC (COMPLETE BLOOD COUNT) (10/18/2016 12:45 PM) Component Value Range WBC Count 11.8(H) 3.7-10.5 K/MM3 RBC Count 4.95 4.50-6.20 M/MM3 Hemoglobin 12.4(L) 13.2-17.7 g/dL Hematocrit 39(L) 40-52 % MCV (Mean Corpuscular Volume) 79(L) 82-99 FL MCH (Mean Corpuscular Hemoglobin) 25 25-35 PG MCHC (Mean Corpuscular Hemoglobin Concentration) 32 32-36 % Platelet Count 293 150-400 K/MM3 MPV (Mean Platelet Volume) 10.4 9.4-12.3 FL RBC Dist Width-STD 52.7(H) 35.1-43.9 FL RBC Distrib Width 18.6(H) 9.0-14.5 % Nucleated RBC 0 /100 WBC Specimen Whole Blood BLOOD CELL MORPHOLOGY (10/18/2016 12:45 PM) Component Value Range Additional Findings Occasional ovalocytes. Specimen Whole Blood URIC ACID (10/18/2016 12:45 PM) Component Value Range Uric Acid 5.3 3.4-7.0 mg/dL Specimen Blood THYROID STIMULATING HORMONE (TSH), WITH REFLEX FREE T-4 (10/18/2016 12:45 PM) Component Value Range TSH, Reflex 1.94 0.27-4.20 IU/mL Specimen Blood CALCIUM (10/18/2016 12:45 PM) Component Value Range Calcium 9.1 8.5-10.5 mg/dL Specimen Blood VITAMIN D, 25-HYDROXY (10/18/2016 12:45 PM) Component Value Range Vitamin D, 25-OH 18(L)Comment: 20-80 ng/mL This assay accurately quantifies the sum of 25-hydroxyvitamin D3 and 25- hydroxyvitamin D2. Endocrine Society, [place] of Medicine (IOM), and World Health Organization (WHO) guidelines designate 25-h ydroxyvitamin D plasma concentrations below 20 ng/mL as deficient, based on increased frequency of adverse outcomes (e.g., osteoporotic fractures). 25-Hydroxyvitamin D reference ranges are a controversial topic, with some authorities suggesting optimal concentrations should be 30 ng/mL or higher based on correlations of 25-hydroxyvitamin D plasma concentrations with physiological parameters such as parathyroid hormone or calcium concentrations. However, optimal 25-hydroxyvitamin D concentrations greater than 20 ng/mL may be considered for specific disease conditions. Vitamin D toxicity is uncommon but may be seen at 25-hydroxyvitamin D concentrations greater than 150 ng/mL. Specimen Blood ERYTHROCYTE SEDIMENTATION RATE (10/18/2016 12:45 PM) Component Value Range ESR (Erythrocyte Sedimentation Rate) 26(H) 0-15 mm/Hr Specimen Whole Blood C-REACTIVE PROTEIN (10/18/2016 12:45 PM) Component Value Range CRP (C-Reactive Protein) 4.7(H) <=0.5 mg/dL Specimen Blood CREATININE (10/18/2016 12:45 PM) Component Value Range Creatinine 1.2Comment: 0.6-1.2 mg/dL Creatinine switched to enzymatic method on 02/16/2011.GFR equation switched to IDMS-traceable MDRD equation on 02/16/2011. Calculated GFR values are not valid in clinical settings where serum creatinine is changing. Calculated GFR 58(L) >60 mL/min/1.73 m2 Specimen Blood ALANINE AMINOTRANSFERASE (10/18/2016 12:45 PM) Component Value Range ALT 13Comment: 0-41 U/L The upper limit of normal for alanine aminotransferase (ALT) reference ranges for adults is controversial with some authorities recommending limit as low as 30 U/L for males and 19 U/L for females. Th ere is increased incidence of subclinical liver disease (e.g., early steatohepatitis) in patients with ALT values in the range of 31-41 U/L for males and 20-33 U/L for females. ALT values should alway s be interpreted in conjunction with clinical history, physical examination findings, and, if applicable, data from other diagnostic tests. Specimen Blood ALBUMIN (10/18/2016 12:45 PM) Component Value Range Albumin 3.6 3.4-4.8 g/dL Specimen Blood ASPARTATE AMINOTRANSFERASE (10/18/2016 12:45 PM) Component Value Range AST 19Comment: 0-40 U/L Adult reference ranges updated on 09/04/13 at 830am Specimen Blood VITAMIN B12 (10/18/2016 12:45 PM) Component Value Range Vitamin B12 206(L)Comment: 211-946 pg/mL New analytical immunoassay with different reference range instituted 09/04/2013 AT 830AM Normal 211 - 946 pg/mL [id number] - 210 pg/mL Deficient<150pg/mL Specimen Blood RETICULOCYTES (10/18/2016 12:45 PM) Component Value Range RBC Count 4.95 4.50-6.20 M/MM3 Retic-% 1.0 0.4-2.1 % Automated Retic, Absolute Count 48.5 12.0-130.0 K/MM3 Specimen Whole Blood IRON PANEL (IRON, TRANSFERRIN AND % SATURATION) (10/18/2016 12:45 PM) Component Value Range Iron, Blood 43(L) 59-158 g/dL Transferrin 190(L) 200-360 mg/dL Iron % Saturation 16(L)Comment: 20-50 % Transferrin saturation is not reliable when there are high ferritin concentrations greater than 1,200 ng/mL. Specimen Blood FERRITIN (10/18/2016 12:45 PM) Component Value Range Ferritin 242.4 30.0-400.0 ng/mL Specimen Blood CBC WITH DIFFERENTIAL (10/18/2016 12:45 PM) Specimen Whole Blood Narrative The following orders were created for panel order CBC WITH DIFFERENTIAL. Procedure Abnormality Status --------- ------ CBC (COMPLETE BLOOD COUNT)[[id number]] AbnormalFinal result DIFFERENTIAL[[id number]] AbnormalFinal result Please view results for these tests on the individual orders.
--- NOTE | 2016-11-19 16:24 | ERNOTE ---
Head Injury HPI - Narrative Date of Service: 11/19/16 - General Injury to: head Time Seen by Provider: 11/19/16 16:02 Source: patient, family, other - Exam Limitations: hard of hearing - Immun/Allergies/Home Medications Immunization: IMMUNIZATION HX Immunizations Up to Date Yes History of Influenza Vaccine Yes Hx Pneumococcal Vaccination Yes Allergies/Adverse Reactions: Allergies Allergy/AdvReac Type Severity Reaction Status Date / Time Penicillins AdvReac Severe Hives Verified 11/19/16 15:12 sulfamethoxazole AdvReac Severe Vomiting Verified 11/19/16 15:12 [From Bactrim] trimethoprim [From Bactrim] AdvReac Severe Vomiting Verified 11/19/16 15:12 Home Medications: HOME MEDICATIONS amLODIPine BESYLATE [Norvasc] 5 mg PO DAILY 12/06/14 [Last Taken 10/25/16] Leflunomide 20 mg PO DAILY 03/15/16 [Last Taken 10/25/16] Aspirin 81 mg PO DAILY #30 tab.chew 03/16/16 [Last Taken 10/25/16] predniSONE [Prednisone] 10 mg PO DAILY 06/17/16 [Last Taken 10/25/16] Fluocinonide 15 gm TP DAILY 10/26/16 [Last Taken 10/25/16] Sertraline HCl [Zoloft] 50 mg PO DAILY 10/26/16 [Last Taken 10/25/16] LORazepam [Ativan] 0.25 mg PO BID PRN #30 tablet 10/29/16 [Last Taken Unknown] - History of Present Illness Narrative: brought patient in to have his head checked. She has frequent falls and falls especially when he tries to walk backwards with his walker. Today when he tripped and fell he hit his head on the sink/counter and had swelling on his head so his wanted to make sure his head was ok. He denies other injuries. he denies N/T/W. No LOC. no neck or back pain. He and have no other concern for injury. No CP or SOB. Occurred: just prior to arrival Location Occurred: home Severity: other - denies pain right now Head Injury Location: parietal Method of Injury: Reports: fell Reason for Fall: Reports: lost balance Loss of Consciousness: Reports: no loss of consciousness Associated Symptoms: Denies: chest pain, shortness of breath, headaches, neck pain, weakness, other injuries Review of Systems - Review of Systems Constitutional: Absent: fever EYE: Present: no symptoms reported ENT: Present: no symptoms reported Respiratory: Absent: shortness of breath Cardiology: Absent: chest pain Gastrointestinal/Abdominal: Absent: abdominal pain Musculoskeletal: Absent: back pain, neck pain Skin: Present: other - chronic rash, no acute lacerationn Neurological: Present: other - no new focal N/T/W.. Absent: weakness - Patient's Past Medical History Patient History - Medical: Arthritis, Dementia Patient History - Cardiac/Respiratory: No pertinent hx Patient History - Cancer: No Hx of Cancer Patient History - Surgical Procedures: Cataracts, Other Patient History - Other: None - Family History Mother Family History - Medical: , Alzheimer's Disease Family History - Cancer: Other Father Family History - Medical: Family History - Cancer: Throat - Social History Living Situations: home Abuse History: No History of abuse Psych History: No pertinent hx Does anyone smoke in the home?: No Smoking Status: Former smoker Alcohol Use: none Drug Use: none - Immunizations Immunizations Up to Date: Yes Hx Pneumococcal Vaccination: Yes History of Influenza Vaccine: Yes Physical Exam - Physical Exam General Appearance: Present: alert, no apparent distress, other - There is a 3cm hematoma left psoterior parietal. No clinical skull Fx. No laceration or skin break. Eye Exam: Normal inspection: bilateral, PERRL: bilateral Ears, Nose, Throat: Present: normal ENT inspection Neck: Present: normal inspection, other - No tenderness posterior cervical spine , No pain with ROM. No clinical suggestion of C spine Fx Respiratory: Present: no respiratory distress, normal breath sounds, lungs clear Cardiovascular/Chest: Present: regular rate, rhythm Gastrointestinal/Abdominal: Present: normal bowel sounds, nontender, soft Back Exam: Absent: no CVA tenderness, no vertebral tenderness, vertebral tenderness Extremity Exam: Present: normal inspection, other - I can elicit no tendenress in the extremities. Neurological Exam: Present: alert, no motor/sensory deficits, other - No evidence of acute unilateral focal motor or sensory deficits. Skin Exam: Absent: skin rash ED Progress - Vital Signs Patient's Vital Signs:: I have reviewed the patient's vital signs. Vital Signs: Vital Signs 11/19/16 15:06 Temperature 36.3 C L Pulse Rate 78 Respiratory 16 Rate Blood Pressure 146/71 O2 Sat by Pulse 96 Oximetry - CT/Ultrasound CT/Ultrasound Narrative: i reviewed head CT report - Progress/Reassessment Chief Complaint: Head Injury Progress Note-Subjective: 11/19/16 16:23 No ICH. He wants to go home. I can find no other signs of injury. Frequent falls. I discussed warning signs and reasons to return as well as the need for close f/u. Departure Clinical Impression: Head injury - Departure Disposition: Home self-care Condition: Stable Instructions: Head Injury, Adult, [id number] Additional Instructions: Rest. Close observation. Follow-up with your doctor in 3 days for a re-check. Return for any area of new pain,. numbness, tingling, weakness or if your condition worsens or changes in any way.
== END 2016-11-19 16:26 | disposition home or self-care (01) ==
LOC: ER 14:53
DX: S09.90XA Unspecified injury of head, initial encounter (principal); Z87.891 Personal history of nicotine dependence; W01.198A Fall on same level from slipping, tripping and stumbling with subsequent striking against other object, initial encounter; Z91.81 History of falling; Y92.008 Other place in unspecified non-institutional (private) residence as the place of occurrence of the external cause; M19.90 Unspecified osteoarthritis, unspecified site

== ENCOUNTER 2017-01-12 13:28 | Inpatient (IN) | payer MEDICARE, BC ==
[2017-01-12 15:04] LABS: Hemoglobin 12.1 gm/dL (13.5-18.0); Mean Corpuscular Hemoglobin 25.5 pg (27-31); Mean Corpuscular Hgb Conc 31.8 g/dl (32-36); Mean Platelet Volume 9.9 fl (6.0-9.5); Neutrophil # 12.3 K/mm3 (1.3-6.0); Neutrophil % 84.6 % (42-75.0); Platelet Count 281 K/mm3 (150-450); Red Blood Count 4.75 M/mm3 (4.7-6.0); Red Cell Distribution Width 15.4 % (11.5-14.0); White Blood Count 14.6 K/mm3 (4.0-10.5)
[2017-01-12 15:17] LABS: Albumin * 2.9 gm/dl (3.4-5.0); Anion Gap 17.4 mmol/L (6.8-13.8); BUN/Creatinine Ratio 15.9 (9.0-21.6); Bilirubin, Total 0.4 mg/dL (0.0-1.1); Ca. Corrected For Albumin 9.4 mg/dL (8.4-10.2); Calcium * 8.8 mg/dL (7.9-10.9); Carbon Dioxide 22.5 mmol/L (24-32.6); Potassium 3.9 mmol/L (3.4-4.6); Total Protein 7.5 gm/dL (6.2-8.2)
[2017-01-12 15:20] LABS: Urine Bilirubin Negative (NEGATIVE); Urine Blood 50 /ul (NEGATIVE); Urine Ketone 5 mg/dL (NEGATIVE); Urine Protein 100 mg/dL (NEGATIVE); Urine Specific Gravity 1.025 SP.GR. (1.005-1.030); Urine Urobilinogen Normal (NORMAL)
[2017-01-12 15:21] LABS: Urine Appearance Cloudy; Urine Bacteria 1+; Urine Color Dark Yellow; Urine Nitrite Positive (NEGATIVE)
--- NOTE | 2017-01-12 16:25 | ERNOTE ---
Medical Problem HPI - General Chief Complaint: General Assessment Time Seen by Provider: 01/12/17 16:11 Source: patient, family Exam Limitations: clinical condition, hard of hearing - Immun/Allergies/Home Medications Immunizations: IMMUNIZATION HX Immunizations Up to Date Yes History of Influenza Vaccine Yes Hx Pneumococcal Vaccination Yes Allergies/Adverse Reactions: Allergies Penicillins Adverse Reaction (Severe, Verified 01/12/17 13:46) Hives sulfamethoxazole [From Bactrim] Adverse Reaction (Severe, Verified 01/12/17 13: 46) Vomiting trimethoprim [From Bactrim] Adverse Reaction (Severe, Verified 01/12/17 13:46) Vomiting Home Medications: HOME MEDICATIONS amLODIPine BESYLATE [Norvasc] 5 mg PO DAILY 12/06/14 [Last Taken 10/25/16] Leflunomide 20 mg PO DAILY 03/15/16 [Last Taken 10/25/16] Aspirin 81 mg PO DAILY #30 tab.chew 03/16/16 [Last Taken 10/25/16] predniSONE [Prednisone] 10 mg PO DAILY 06/17/16 [Last Taken 10/25/16] Fluocinonide 15 gm TP DAILY 10/26/16 [Last Taken 10/25/16] Sertraline HCl [Zoloft] 50 mg PO DAILY 10/26/16 [Last Taken 10/25/16] LORazepam [Ativan] 0.25 mg PO BID PRN #30 tablet 10/29/16 [Last Taken Unknown] - History of Present History Narrative: Patient has not been himself for two days, more confused very weak, barely able to walk, not eating much. He usually act like this when he has a UTI. He also fell in the bathtub and hit his chest about a week ago, has been complaining of pain with touching the area Date (Duration): 01/10/17 Review of Systems - Narrative Narrative: limited due to confusion, denies any pain - Review of Systems Constitutional: Absent: fever - Patient's Past Medical History Patient History - Medical: Arthritis, Dementia, UTI'S, Other - rheumatoid arthritis Patient History - Cardiac/Respiratory: Coronary Heart Disease, COPD, Hypertension Patient History - Cancer: No Hx of Cancer Patient History - Surgical Procedures: Cataracts, Other Patient History - Other: None - Family History Mother Family History - Medical: , Alzheimer's Disease Family History - Cancer: Other Father Family History - Medical: Family History - Cancer: Throat - Social History Living Situations: home Abuse History: No History of abuse Psych History: No pertinent hx Does anyone smoke in the home?: No Alcohol Use: none Drug Use: none - Immunizations Immunizations Up to Date: Yes Hx Pneumococcal Vaccination: Yes History of Influenza Vaccine: Yes Physical Exam - Physical Exam General Appearance: Present: wd/wn, no apparent distress, sleeping/easy to arouse, other - hard of hearing Eye Exam: Normal inspection: bilateral Ears, Nose, Throat: Present: normal pharynx Respiratory: Present: no respiratory distress, no accessory muscle use, lungs clear, chest tenderness - right lower ribs anterior axillary line, decreased breath sounds Cardiovascular/Chest: Present: regular rate, rhythm, no murmur Gastrointestinal/Abdominal: Present: normal bowel sounds, nontender, nondistended, soft Male Genitals Exam: Present: other - cj rash Extremity Exam: Present: pedal edema Neurological Exam: Present: other - hard of hearing and lethargic, answers question regarding pain, then keeps saying 'I am okay' Skin Exam: Present: normal color, warm/dry, intertrigo, other - macular papular rash most pronounced on right side of abdomen and right arm, to a lesser degree on on remainder of trunk and extremities ED Progress - Results and Orders Patient's Lab Results:: I have reviewed the patient's lab results. - Vital Signs Patient's Vital Signs:: I have reviewed the patient's vital signs. Vital Signs: Vital Signs 01/12/17 01/12/17 01/12/17 13:35 14:32 15:35 Temperature 37.4 C 37.3 C Pulse Rate 83 77 80 Respiratory 16 20 24 H Rate Blood Pressure 166/92 159/89 O2 Sat by Pulse 95 98 98 Oximetry 01/12/17 15:56 Temperature Pulse Rate 77 Respiratory 18 Rate Blood Pressure 161/96 O2 Sat by Pulse 96 Oximetry - Progress/Reassessment Chief Complaint: General Assessment Progress Note-Subjective: 01/12/17 16:33 last culture 12/06/2016 acinobactor sensitive to rocephin discussed diagnosis with family and recommended admission, family agreed 01/12/17 16:56 message to Chanel 01/12/17 17:20 discussed with Chanel Gudenkauf, okay to admit for observation Departure - Departure Clinical Impression: Weakness, SIRS (systemic inflammatory response syndrome) UTI (urinary tract infection) Qualifiers: Urinary tract infection type: site unspecified Hematuria presence: with hematuria Qualified Code(s): N39.0 - Urinary tract infection, site not specified ; R31.9 - Hematuria, unspecified Disposition: [facility] Condition: Good
--- OUTSIDE RECORDS SUMMARY | 2017-01-12 17:42 | XMS REPORT | Continuity of Care Document ---
:1935 Author Organization [facility] ([facility]) Address [address] [place] [address] Phone [phone] Care Team Providers Name Role Phone Hosp, [place] Primary Care Provider [phone] Source Comments This disclosure is being made pursuant to the Care Everywhere program, applicable federal and state laws, and may not contain all informaitonavailable regarding this patient.[facility] ([facility]) Active Allergies and Adverse Reactions Allergen Noted [...] organ or systems involvement Overview: Dx 01/2009 @[facility], after several years symptoms. 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 (Primary Dx) 10/14/2016 Telephone Internal Medicine - Margaret Baumann, Chief Comp: Labs Only Primary MID TEACHER 10/14/2016 Orders/Notes Internal Medicine - Margaret Baumann, Dx: Iron deficiency Primary MID TEACHER anemia (Primary Dx) Immunizations Name Dates Previously Given [...] Taken Blood Pressure 147/65 10/18/2016 11:43 AM BUSHING AND BROACH OPERATOR Pulse 59 10/18/2016 11:43 AM BUSHING AND BROACH OPERATOR Temperature 36 C (96.8 F) 10/18/2016 11:43 AM BUSHING AND BROACH OPERATOR Respiratory Rate 15 07/03/2016 9:20 AM CDT Height 1.727 m (5' 7.99") 10/18/2016 11:43 AM BUSHING AND BROACH OPERATOR Weight 77.2 kg (170 lb 3.1 oz) 10/18/2016 11:43 AM BUSHING AND BROACH OPERATOR Body Mass Index 25.88 10/18/2016 11:43 AM BUSHING AND BROACH OPERATOR Oxygen Saturation 93% 08/12/2016 9:52 AM CDT Plan of Care Date Type Specialty Providers Description 01/18/2017 Appointment Med Rheumatology Talia Harris MD [address] [place] [address] [phone] (Fax) Chief Comp: Patient Marysol Gill PA-C [address] [place] [address] [phone] (Fax) Reported Reason For Visit 02/14/2017 Appointment Audiology Michael Chavarria MD [address] [place] [address] [phone] (Fax) Chief Comp: Patient Chelle Thomas Reported Reason For Visit 05/16/2017 Appointment Med Rheumatology Talia Harris Chief Comp: Patient Reported Reason For [address] [place] [address] [phone] (Fax) 05/18/2017 Appointment Ophthalmology - Bashir St, Chief Comp: Patient Specialty MD Reported Reason For [address] [place] [address] [phone] (Fax) 07/18/2017 Appointment Ophthalmology - Navneet Guillory, Chief Comp: Patient Specialty MD Reported Reason For [address] [place] [address] [phone] (Fax) Health Maintenance Due Date Last Done [...] Neutrophils-Auto Diff 77.5 % Neutrophils-Auto Diff 9120(H) 6817-4779 /MM3 % Lymphocytes-Auto Diff 9.9 % Lymphocytes-Auto Diff 7661 490-7426 /MM3 % Monocytes-Auto Diff 8.3 % Monocytes-Auto [...] D3 and 25- hydroxyvitamin D2. Endocrine Society, [place] of [employer] (IOM), and World Health Organization [...] AT 830AM Normal 211 - 946 pg/mL [id number] - 210 pg/mL Deficient<150pg/mL Specimen Blood RETICULOCYTES [...] Abnormality Status --------- ------ CBC (COMPLETE BLOOD COUNT)[[id number]] AbnormalFinal result DIFFERENTIAL[[id number]] AbnormalFinal result Please view results for these tests on the individual orders.
--- OUTSIDE RECORDS SUMMARY | 2017-01-12 17:43 | XMS REPORT | Continuity of Care Document ---
:1935 Author Organization [facility] ([facility]) Address [address] [place] [address] Phone [phone] Care Team Providers Name Role Phone Hosp, [place] Primary Care Provider [phone] Source Comments This disclosure is being made pursuant to the Care Everywhere program, applicable federal and state laws, and may not contain all informaitonavailable regarding this patient.[facility] ([facility]) Active Allergies and Adverse Reactions Allergen [...] organ or systems involvement Overview: Dx 01/2009 @[facility], after several years symptoms. 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 (Primary Dx) 10/14/2016 Telephone Internal Medicine - Margaret Baumann, Chief Comp: Labs Only Primary MULTIPLE NEEDLE STITCHER 10/14/2016 Orders/Notes Internal Medicine - Margaret Baumann, Dx: Iron deficiency Primary MULTIPLE NEEDLE STITCHER anemia (Primary Dx) Immunizations Name Dates Previously [...] Taken Blood Pressure 147/65 10/18/2016 11:43 AM PRINCIPAL DATA ARCHITECT Pulse 59 10/18/2016 11:43 AM PRINCIPAL DATA ARCHITECT Temperature 36 C (96.8 F) 10/18/2016 11:43 AM PRINCIPAL DATA ARCHITECT Respiratory Rate 15 07/03/2016 9:20 AM CDT Height 1.727 m (5' 7.99") 10/18/2016 11:43 AM PRINCIPAL DATA ARCHITECT Weight 77.2 kg (170 lb 3.1 oz) 10/18/2016 11:43 AM PRINCIPAL DATA ARCHITECT Body Mass Index 25.88 10/18/2016 11:43 AM PRINCIPAL DATA ARCHITECT Oxygen Saturation 93% 08/12/2016 9:52 AM CDT Plan of Care Date Type Specialty Providers Description 01/18/2017 Appointment Med Rheumatology Talia Harris MD [address] [place] [address] [phone] (Fax) Chief Comp: Patient Marysol Gill PA-C [address] [place] [address] [phone] (Fax) Reported Reason For Visit 02/14/2017 Appointment Audiology Michael Chavarria MD [address] [place] [address] [phone] (Fax) Chief Comp: Patient Chelle Thomas Reported Reason For Visit 05/16/2017 Appointment Med Rheumatology Talia Harris Chief Comp: Patient Reported Reason For [address] [facility] [place] [address] [phone] (Fax) 05/18/2017 Appointment Ophthalmology - [address], Chief Comp: Patient Specialty MD Reported Reason For [address] [place] [address] [phone] (Fax) 07/18/2017 Appointment Ophthalmology - Navneet Guillory, Chief Comp: Patient Specialty MD Reported Reason For [address] [place] [address] [phone] (Fax) Health Maintenance Due Date Last Done [...] Neutrophils-Auto Diff 77.5 % Neutrophils-Auto Diff 9120(H) 9369-3569 /MM3 % Lymphocytes-Auto Diff 9.9 % Lymphocytes-Auto Diff 2704 945-1157 /MM3 % Monocytes-Auto Diff 8.3 % Monocytes-Auto [...] D3 and 25- hydroxyvitamin D2. Endocrine Society, [place] of Medicine (IOM), and World Health Organization [...] AT 830AM Normal 211 - 946 pg/mL [id number] - 210 pg/mL Deficient<150pg/mL Specimen Blood RETICULOCYTES [...] Abnormality Status --------- ------ CBC (COMPLETE BLOOD COUNT)[[id number]] AbnormalFinal result DIFFERENTIAL[[id number]] AbnormalFinal result Please view results for these tests on the individual orders.
[2017-01-12] MEDS ORDERED: NORMAL SALINE 1,000 ML IV ONE (17:46)
[2017-01-12] MEDS ORDERED: LORazepam 0.5 MG TABLET PO PRN (19:40)
--- NOTE | 2017-01-12 20:51 | HP ---
Chief Complaint - Chief Complaint Date of Service: 01/12/17 Time of Service: 20:44 Chief Complaint: confusion History of Present Illness: History is obtained from ER record as pt refuses to communicate during examination. Per ER record, "Patient has not been himself for two days, more confused very weak, barely able to walk, not eating much. He usually act like this when he has a UTI. He also fell in the bathtub and hit his chest about a week ago, has been complaining of pain with touching the area." Work up in ER was significant for UA with nitrates, +1 bacteria, and 25 leukocyte esterase. WBC 14.6, h/h 12.1/38, Na+ 139, K+ 3.9. Last urinary culture 12/06/2016 acinobactor sensitive to rocephin. Pt was started on IV Rocephin in ER and he will be admitted to observation overnight for IV antibiotics. - Patient's Past Medical History Patient History - Medical: Arthritis, Dementia, UTI'S, Other Patient History - Cardiac/Respiratory: Coronary Heart Disease, COPD, Hypertension Patient History - Cancer: No Hx of Cancer Patient History - Surgical Procedures: Cataracts, Other Patient History - Other: None - Family History Mother Family History - Medical: , Alzheimer's Disease Family History - Cardiac/Respiratory: No pertinent hx Family History - Cancer: No pertinent family hx Father Family History - Medical: Family History - Cancer: Throat - Social History Living Situations: spouse Abuse History: No History of abuse Psych History: No pertinent hx Does anyone smoke in the home?: No Smoking Status: Unknown if ever smoked Have you smoked in the past 12 months: No Do you dip or chew tobacco: No Alcohol Use: none Drug Use: none - Immunizations Immunizations Up to Date: Yes Hx Pneumococcal Vaccination: Yes History of Influenza Vaccine: Yes Review Of Systems (GEN) - Review of Systems Additional Comments: Pt refuses to answer questions during examination. Does not appear to be in any acute distress. Constant itching noted to left inner thigh were excoriation and rash is noted. Allergies/Adverse Reactions: Allergies Allergy/AdvReac Type Severity Reaction Status Date / Time Penicillins AdvReac Severe Hives Verified 01/12/17 13:46 sulfamethoxazole AdvReac Severe Vomiting Verified 01/12/17 13:46 [From Bactrim] trimethoprim [From Bactrim] AdvReac Severe Vomiting Verified 01/12/17 13:46 Home Medications: HOME MEDICATIONS amLODIPine BESYLATE [Norvasc] 5 mg PO DAILY 12/06/14 [Last Taken 10/25/16] Leflunomide 20 mg PO DAILY 03/15/16 [Last Taken 10/25/16] Aspirin 81 mg PO DAILY #30 tab.chew 03/16/16 [Last Taken 10/25/16] predniSONE [Prednisone] 10 mg PO DAILY 06/17/16 [Last Taken 10/25/16] Fluocinonide 15 gm TP DAILY 10/26/16 [Last Taken 10/25/16] Sertraline HCl [Zoloft] 50 mg PO DAILY 10/26/16 [Last Taken 10/25/16] LORazepam [Ativan] 0.25 mg PO BID PRN #30 tablet 10/29/16 [Last Taken Unknown] Exam - Exam Vital Signs: Vital Signs - Last Taken Temp 37.4 C 01/12/17 20:25 Pulse 95 01/12/17 20:25 Resp 14 01/12/17 20:25 BP 129/65 01/12/17 20:25 Pulse Ox 94 01/12/17 20:25 Constitutional: Present: Alert, No distress Eye Exam: bilateral eye: normal inspection Respiratory: Present: normal breath sounds, no respiratory distress, no accessory muscle use, decreased breath sounds, No wheezing Cardiovascular/Chest: Present: normal peripheral pulses, regular rate, rhythm, no chest tenderness, no edema Peripheral Pulses: dorsalis-pedis (R): 2+, dorsalis-pedis (L): 2+, radial (R): 2 +, radial (L): 2+ Abdomen: Present: Normal bowel sounds, nontender, nondistended /Rectal: Present: Exam deferred Extremity: Present: normal range of motion, non-tender, normal inspection, no pedal edema, no calf tenderness Skin Exam: Present: skin rash, other - macular papular rash most pronounced on right side of abdomen and right arm and right inner thigh, to a lesser degree on on remainder of trunk and extremities. Excoriation possible incontinent dermatitis to right inner thigh. Neurologic: Present: alert, disoriented x 3, other - pt refuses to answer Eye contact: Present: refused to answer Diagnostic Studies: Laboratory Results Laboratory Tests 01/12/17 01/12/17 01/12/17 14:45 14:45 14:58 WBC 14.6 H Hgb 12.1 L Hct 38.0 L Plt Count 281 Sodium 139 Potassium 3.9 BUN 22 Creatinine 1.38 Lactic Acid, Venous Urine Nitrate Positive H Ur Leukocyte Esterase 25 H Urine Bacteria 1+ H 01/12/17 15:32 WBC Hgb Hct Plt Count Sodium Potassium BUN Creatinine Lactic Acid, Venous 1.3 Urine Nitrate Ur Leukocyte Esterase Urine Bacteria Assessment/Plan - Assessment/Plan (1) UTI (urinary tract infection) Assessment: Culture pending. Pt placed on IV Rocephin due to last urinary culture sensitivity. Lactic acid negative. Has a history of increased intermittent confusion with UTI's. -MIVF NS 50ml/hr -UA culture -IV Rocephin -CBC/CMP in am Problem: Acute Qualifiers: Urinary tract infection type: site unspecified Hematuria presence: with hematuria Qualified Code(s): N39.0 - Urinary tract infection, site not specified; R31.9 - Hematuria, unspecified (2) Weakness Assessment: Will likely improve some once antibiotics take effect and UTI resolves. Will order PT in the meantime. Problem: Acute (3) Altered mental status Assessment: Likely secondary to acute UTI. Placed on Rocephin. Will continue to monitor for any acute changes or further s/s of neurological decline. Problem: Acute Qualifiers: Altered mental status type: disorientation Qualified Code(s): R41.0 - Disorientation, unspecified (4) HTN (hypertension) Assessment: Continue home dose of Norvasc 5mg daily. VS Q4H Problem: Acute
[2017-01-12] MEDS: HYDROPHILIC OINTMENT 454 APPL JAR TP SCH (21:46)
[2017-01-12] MEDS: NYSTATIN 15 APPL BTL TP SCH (21:47)
[2017-01-13] MEDS: SERTRALINE HCL 50 MG TABLET PO SCH (08:21)
[2017-01-13] MEDS: ASPIRIN 81 MG TAB.CHEW PO SCH (08:21)
[2017-01-13] MEDS: predniSONE 10 MG TABLET PO SCH (08:21)
[2017-01-13] MEDS: amLODIPine BESYLATE 5 MG TABLET PO SCH (08:21)
[2017-01-13] MEDS: NYSTATIN 15 APPL BTL TP SCH ×2 (08:25→20:42)
[2017-01-13] MEDS: FLUOCINONIDE APPL TP SCH (08:26)
[2017-01-13] MEDS: HYDROPHILIC OINTMENT 454 APPL JAR TP SCH ×2 (08:26→20:43)
[2017-01-13] MEDS ORDERED: LEFLUNOMIDE 20 MG PO SCH (09:00)
--- NOTE | 2017-01-13 09:51 | PN ---
Subjective - Date and Time Seen Date: 01/13/17 Time: 09:44 Subjective Narrative: Still confused and not answering questions. Objective - Review of Systems Generalized/Overall Review: Reports: No Symptoms Reported EENTM: Reports: No Symptoms Reported Respiratory: Reports: No Symptoms Reported Cardiac: Reports: No Symptoms Reported Abdominal: Reports: No Symptoms Reported Genitourinary Symptoms: Reports: No Symptoms Reported Musculoskeletal Complaints: Reports: No Symptoms Reported Neurological: Reports: No Symptoms Reported Skin: Reports: No Symptoms Reported Endocrine: Reports: No Symptoms Reported Misc: All systems neg except as marked - [place] to get ROS due to his confusion - Vitals Vitals: Last Vital Signs Temp 37.5 C 01/13/17 09:16 Pulse 85 01/13/17 09:16 Resp 12 01/13/17 09:16 BP 152/79 01/13/17 09:16 Pulse Ox 91 01/13/17 09:16 - Exam Constitutional: Present: Alert - x 1, Elderly ENT Exam: Present: hearing grossly normal Neck: Present: supple Breasts: Present: Exam deferred Respiratory: Present: decreased breath sounds, No rales, No wheezing Cardiovascular/Chest: Present: regular rate, rhythm, no JVD, no murmur Abdomen: Present: Normal bowel sounds, nondistended, tender - suprapubic area, firm Extremity: Present: no pedal edema, no calf tenderness Assessment/Plan - Problems/Diagnosis (1) SIRS (systemic inflammatory response syndrome) Problem: Acute Narrative: due to UTI (2) UTI (urinary tract infection) Problem: Acute Qualifiers: Urinary tract infection type: site unspecified Hematuria presence: with hematuria Qualified Code(s): N39.0 - Urinary tract infection, site not specified; R31.9 - Hematuria, unspecified Narrative: continue with IV antibiotics. (3) HTN (hypertension) Problem: Chronic Qualifiers: Hypertension type: essential hypertension Qualified Code(s): I10 - Essential (primary) hypertension (4) Weakness Problem: Acute (5) Altered mental status Problem: Acute Qualifiers: Altered mental status type: disorientation Qualified Code(s): R41.0 - Disorientation, unspecified Narrative: due to toxic/metabolic encephalaopthy on top of baseline dementia. 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
[2017-01-13 10:29] LABS: Hematocrit 35.1 % (42.0-52.0); Hemoglobin 11.1 gm/dL (13.5-18.0); Mean Cell Volume 80.1 fl (78-100); Mean Corpuscular Hemoglobin 25.3 pg (27-31); Mean Corpuscular Hgb Conc 31.6 g/dl (32-36); Mean Platelet Volume 9.7 fl (6.0-9.5); Neutrophil # 10.5 K/mm3 (1.3-6.0); Neutrophil % 87.3 % (42-75.0); Platelet Count 263 K/mm3 (150-450); Red Blood Count 4.38 M/mm3 (4.7-6.0); Red Cell Distribution Width 15.2 % (11.5-14.0)
[2017-01-13 10:49] LABS: Albumin * 2.6 gm/dl (3.4-5.0); Anion Gap 16.5 mmol/L (6.8-13.8); BUN/Creatinine Ratio 15.6 (9.0-21.6); Bilirubin, Total 0.4 mg/dL (0.0-1.1); Ca. Corrected For Albumin 9.3 mg/dL (8.4-10.2); Calcium * 8.5 mg/dL (7.9-10.9); Carbon Dioxide 22.2 mmol/L (24-32.6); Potassium 3.7 mmol/L (3.4-4.6); Total Protein 6.9 gm/dL (6.2-8.2)
[2017-01-13] MEDS: NORMAL SALINE 1,000 ML IV PRN (11:19)
[2017-01-14] MEDS: NORMAL SALINE 1,000 ML IV PRN ×2 (01:19→14:43)
[2017-01-14] MEDS ORDERED: ACETAMINOPHEN 325 MG TABLET PO PRN (09:07)
[2017-01-14] MEDS: FLUOCINONIDE APPL TP SCH (09:22)
[2017-01-14] MEDS: SERTRALINE HCL 50 MG TABLET PO SCH (09:22)
[2017-01-14] MEDS: predniSONE 10 MG TABLET PO SCH (09:23)
[2017-01-14] MEDS: ASPIRIN 81 MG TAB.CHEW PO SCH (09:23)
[2017-01-14] MEDS: amLODIPine BESYLATE 5 MG TABLET PO SCH (09:23)
[2017-01-14] MEDS: HYDROPHILIC OINTMENT 454 APPL JAR TP SCH ×2 (09:24→21:05)
[2017-01-14] MEDS: NYSTATIN 15 APPL BTL TP SCH ×2 (09:24→21:05)
[2017-01-14] MEDS: MUPIROCIN 22 APPL TUBE TP SCH ×2 (09:31→21:06)
--- NOTE | 2017-01-14 11:44 | PN ---
Subjective - Date and Time Seen Date: 01/14/17 Time: 11:40 Subjective Narrative: Patient is more awake today. Knows what year it is and knows where he is. He has pain in his lower rib area, right. Objective - Review of Systems Generalized/Overall Review: Reports: Weakness. Denies: Chills, Fever EENTM: Reports: No Symptoms Reported Respiratory: Denies: Cough, Shortness of Breath Cardiac: Reports: Chest Pain - ler rib area. Denies: Edema, Palpitations Abdominal: Denies: Nausea, Vomiting Genitourinary Symptoms: Denies: Urgency, Frequency Musculoskeletal Complaints: Reports: Joint Pain - Vitals Vitals: Last Vital Signs Temp 36.8 C 01/14/17 10:46 Pulse 71 01/14/17 10:46 Resp 20 01/14/17 10:46 BP 147/68 01/14/17 10:46 Pulse Ox 96 01/14/17 10:46 - Exam Constitutional: Present: Alert, Oriented x3, Cooperative, Elderly ENT Exam: Present: hearing grossly normal Neck: Present: supple Breasts: Present: Exam deferred Respiratory: Present: decreased breath sounds. Absent: No rales, No wheezing Cardiovascular/Chest: Present: regular rate, rhythm, no JVD, no murmur Abdomen: Present: Normal bowel sounds, soft, nontender, nondistended Extremity: Present: no pedal edema, no calf tenderness Assessment/Plan - Problems/Diagnosis (1) SIRS (systemic inflammatory response syndrome) Problem: Chronic (2) UTI (urinary tract infection) Problem: Acute Qualifiers: Urinary tract infection type: site unspecified Hematuria presence: with hematuria Qualified Code(s): N39.0 - Urinary tract infection, site not specified; R31.9 - Hematuria, unspecified Narrative: on IV rocephin. growing gram negative bacilli. (3) HTN (hypertension) Problem: Chronic Qualifiers: Hypertension type: essential hypertension Qualified Code(s): I10 - Essential (primary) hypertension (4) Weakness Problem: Acute Narrative: PT is working with him. (5) Altered mental status Problem: Acute Qualifiers: Altered mental status type: disorientation Qualified Code(s): R41.0 - Disorientation, unspecified Narrative: improved siginificantly. possible discahrge tomorrow pending [facility]. 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
[2017-01-14] MEDS: ENOXAPARIN SODIUM 40 MG/0.4 ML SYRG SC SCH ×2 (16:50→16:53)
[2017-01-14 17:38] LABS: Hematocrit 36.9 % (42.0-52.0); Hemoglobin 11.6 gm/dL (13.5-18.0); Mean Cell Volume 80.6 fl (78-100); Mean Corpuscular Hemoglobin 25.3 pg (27-31); Mean Corpuscular Hgb Conc 31.4 g/dl (32-36); Mean Platelet Volume 10.2 fl (6.0-9.5); Neutrophil # 9.8 K/mm3 (1.3-6.0); Neutrophil % 90.2 % (42-75.0); Platelet Count 275 K/mm3 (150-450); Red Blood Count 4.58 M/mm3 (4.7-6.0); Red Cell Distribution Width 15.2 % (11.5-14.0); White Blood Count 10.8 K/mm3 (4.0-10.5)
[2017-01-15] MEDS: POLYVINYL ALCOHOL 150 DROP BTL EACHEYE SCH ×2 (04:51→11:09)
[2017-01-15] MEDS: HALOPERIDOL 5 MG TABLET PO PRN ×3 (04:54→20:05)
--- NOTE | 2017-01-15 09:06 | PN ---
Subjective - Date and Time Seen Date: 01/15/17 Time: 09:02 Subjective Narrative: patient was sleeping but woke up with name call but will not answer my questions. UCS growing Pseudomonas. Objective - Review of Systems Generalized/Overall Review: Reports: No Symptoms Reported EENTM: Reports: No Symptoms Reported Respiratory: Reports: No Symptoms Reported, Shortness of Breath Cardiac: Reports: No Symptoms Reported Abdominal: Reports: No Symptoms Reported Genitourinary Symptoms: Reports: No Symptoms Reported Musculoskeletal Complaints: Reports: No Symptoms Reported Neurological: Reports: No Symptoms Reported Skin: Reports: No Symptoms Reported Endocrine: Reports: No Symptoms Reported Misc: All systems neg except as marked - Will ot answer my questions - Vitals Vitals: Last Vital Signs Temp 36.9 C 01/15/17 07:28 Pulse 61 01/15/17 07:28 Resp 20 01/15/17 07:28 BP 145/40 01/15/17 07:28 Pulse Ox 99 01/15/17 07:28 - Abnormal Lab Findings Abnormal Lab Findings: Abnormal Lab Results 01/14/17 Range/Units 17:15 WBC 10.8 H (4.0-10.5) K/mm3 RBC 4.58 L (4.7-6.0) M/mm3 Hgb 11.6 L (13.5-18.0) gm/dL Hct 36.9 L (42.0-52.0) % MCH 25.3 L (27-31) pg MCHC 31.4 L (32-36) g/dl RDW 15.2 H (11.5-14.0) % MPV 10.2 H (6.0-9.5) fl Immature Gran % (Auto) 0.60 H (0.001-0.429) % Immature Gran # (Auto) 0.06 H (0.000-0.0310) K/mm3 Neutrophils % 90.2 H (42-75.0) % Lymphocytes % 4.3 L (20-51) % Neutrophils # 9.8 H (1.3-6.0) K/mm3 Lymphocytes # 0.5 L (1.5-3.5) k/mm3 - Exam Constitutional: Present: Alert - AAO x 1 ENT Exam: Present: hearing grossly normal Neck: Present: supple Breasts: Present: Exam deferred Respiratory: Present: decreased breath sounds, No rales, No wheezing Cardiovascular/Chest: Present: regular rate, rhythm, no JVD, no murmur Abdomen: Present: Normal bowel sounds, soft, nontender, nondistended Extremity: Present: no calf tenderness, pedal edema Skin Exam: Present: other - bruise, right pelvic area. Assessment/Plan - Problems/Diagnosis (1) SIRS (systemic inflammatory response syndrome) Problem: Resolved (2) UTI (urinary tract infection) Problem: Acute Qualifiers: Urinary tract infection type: site unspecified Hematuria presence: with hematuria Qualified Code(s): N39.0 - Urinary tract infection, site not specified; R31.9 - Hematuria, unspecified Narrative: Pseudomona UTI. Rocephin cahnged to Cefepime. (3) HTN (hypertension) Problem: Chronic Qualifiers: Hypertension type: essential hypertension Qualified Code(s): I10 - Essential (primary) hypertension (4) Weakness Problem: Acute (5) Altered mental status Problem: Acute Qualifiers: Altered mental status type: disorientation Qualified Code(s): R41.0 - Disorientation, unspecified Narrative: delirium, acute on chronic ( dementia). 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
[2017-01-15] MEDS: MUPIROCIN 22 APPL TUBE TP SCH ×2 (10:42→20:04)
[2017-01-15] MEDS: amLODIPine BESYLATE 5 MG TABLET PO SCH (10:42)
[2017-01-15] MEDS: HYDROPHILIC OINTMENT 454 APPL JAR TP SCH ×2 (10:43→20:04)
[2017-01-15] MEDS: predniSONE 10 MG TABLET PO SCH (10:43)
[2017-01-15] MEDS: ASPIRIN 81 MG TAB.CHEW PO SCH (10:43)
[2017-01-15] MEDS: FLUOCINONIDE APPL TP SCH (10:43)
[2017-01-15] MEDS: SERTRALINE HCL 50 MG TABLET PO SCH (10:43)
[2017-01-15] MEDS: NYSTATIN 15 APPL BTL TP SCH ×2 (10:43→20:05)
[2017-01-15] MEDS: CEFEPIME HCL 2 GM in DEXTROSE 5 % IN WATER 100 ML IV SCH ×2 (11:09)
[2017-01-15] MEDS: ENOXAPARIN SODIUM 40 MG/0.4 ML SYRG SC SCH (16:36)
[2017-01-15] MEDS: NORMAL SALINE 1,000 ML IV PRN (16:48)
[2017-01-15] MEDS: REFRESH TEARS EACHEYE SCH (20:05)
[2017-01-15] MEDS ORDERED: hydrALAZINE HCL 25 MG TABLET ONE (22:33)
[2017-01-15] MEDS: hydrALAZINE HCL 50 MG TABLET PO PRN (22:35)
[2017-01-16 05:36] LABS: Hematocrit 35.5 % (42.0-52.0); Hemoglobin 11.2 gm/dL (13.5-18.0); Mean Cell Volume 80.3 fl (78-100); Mean Corpuscular Hemoglobin 25.3 pg (27-31); Mean Corpuscular Hgb Conc 31.5 g/dl (32-36); Mean Platelet Volume 10.4 fl (6.0-9.5); Neutrophil # 6.8 K/mm3 (1.3-6.0); Neutrophil % 78.7 % (42-75.0); Platelet Count 268 K/mm3 (150-450); Red Blood Count 4.42 M/mm3 (4.7-6.0); White Blood Count 8.7 K/mm3 (4.0-10.5)
[2017-01-16 05:42] LABS: Anion Gap 13.7 mmol/L (6.8-13.8); BUN/Creatinine Ratio 14.7 (9.0-21.6); Calcium * 8.6 mg/dL (7.9-10.9); Potassium 3.7 mmol/L (3.4-4.6)
[2017-01-16] MEDS: NORMAL SALINE 1,000 ML IV PRN ×2 (06:05→20:18)
[2017-01-16] MEDS: hydrALAZINE HCL 50 MG TABLET PO PRN (07:05)
--- NOTE | 2017-01-16 09:20 | PN ---
Subjective - Date and Time Seen Date: 01/16/17 Time: 09:14 Subjective Narrative: Patient is AAO x 1. Afebrile. Still confused. Answers "yup" to my questions. Objective - Review of Systems Generalized/Overall Review: Reports: No Symptoms Reported, Chills EENTM: Reports: No Symptoms Reported Respiratory: Reports: No Symptoms Reported Cardiac: Reports: No Symptoms Reported Abdominal: Reports: No Symptoms Reported Genitourinary Symptoms: Reports: No Symptoms Reported Musculoskeletal Complaints: Reports: No Symptoms Reported Neurological: Reports: No Symptoms Reported Skin: Reports: No Symptoms Reported Endocrine: Reports: No Symptoms Reported Misc: All systems neg except as marked - Answers only "yup" to all my questions. - Vitals Vitals: Last Vital Signs Temp 36.6 C 01/16/17 06:43 Pulse 66 01/16/17 07:05 Resp 16 01/16/17 06:43 BP 182/90 01/16/17 07:05 Pulse Ox 95 01/16/17 06:43 - Abnormal Lab Findings Abnormal Lab Findings: Abnormal Lab Results 01/16/17 01/16/17 Range/Units 05:20 05:20 RBC 4.42 L (4.7-6.0) M/mm3 Hgb 11.2 L (13.5-18.0) gm/dL Hct 35.5 L (42.0-52.0) % MCH 25.3 L (27-31) pg MCHC 31.5 L (32-36) g/dl RDW 15.0 H (11.5-14.0) % MPV 10.4 H (6.0-9.5) fl Immature Gran % (Auto) 0.60 H (0.001-0.429) % Immature Gran # (Auto) 0.05 H (0.000-0.0310) K/mm3 Neutrophils % 78.7 H (42-75.0) % Lymphocytes % 9.9 L (20-51) % Neutrophils # 6.8 H (1.3-6.0) K/mm3 Lymphocytes # 0.9 L (1.5-3.5) k/mm3 Chloride 108 H (97-106) mmol/L Carbon Dioxide 22.0 L (24-32.6) mmol/L - Exam Constitutional: Present: Alert, Oriented x3, Cooperative ENT Exam: Present: hearing grossly normal Neck: Present: supple Breasts: Present: Exam deferred Respiratory: Present: decreased breath sounds, No wheezing, plerual rub Cardiovascular/Chest: Present: regular rate, rhythm, no JVD, no murmur Abdomen: Present: Normal bowel sounds, soft, nontender, nondistended Extremity: Present: no pedal edema, no calf tenderness Assessment/Plan - Problems/Diagnosis (1) SIRS (systemic inflammatory response syndrome) Problem: Resolved (2) UTI (urinary tract infection) Problem: Acute Qualifiers: Urinary tract infection type: site unspecified Hematuria presence: with hematuria Qualified Code(s): N39.0 - Urinary tract infection, site not specified; R31.9 - Hematuria, unspecified Narrative: Pseudomonas UTI, Day # 2 of IV cefepime. WBC back to normal. Will go for at least 5 days of IV antibiotics for uncomplicated community acquired UTI ( simple cysitis) . (3) HTN (hypertension) Problem: Chronic Qualifiers: Hypertension type: essential hypertension Qualified Code(s): I10 - Essential (primary) hypertension (4) Weakness Problem: Acute (5) Altered mental status Problem: Acute Qualifiers: Altered mental status type: disorientation Qualified Code(s): R41.0 - Disorientation, unspecified Narrative: continues to be confused. may need NH placement . Delirium vs Dementia with behavioral changes. Consider Psych consult in a.m. 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
[2017-01-16] MEDS: HYDROPHILIC OINTMENT 454 APPL JAR TP SCH ×2 (09:49→20:15)
[2017-01-16] MEDS: NYSTATIN 15 APPL BTL TP SCH ×2 (09:49→20:16)
[2017-01-16] MEDS: FLUOCINONIDE APPL TP SCH (09:49)
[2017-01-16] MEDS: amLODIPine BESYLATE 5 MG TABLET PO SCH (09:50)
[2017-01-16] MEDS: MUPIROCIN 22 APPL TUBE TP SCH ×2 (09:50→20:16)
[2017-01-16] MEDS: SERTRALINE HCL 50 MG TABLET PO SCH (09:51)
[2017-01-16] MEDS: REFRESH TEARS EACHEYE SCH ×2 (09:51→20:16)
[2017-01-16] MEDS: CEFEPIME HCL 2 GM in DEXTROSE 5 % IN WATER 100 ML IV SCH ×2 (09:51)
[2017-01-16] MEDS: ASPIRIN 81 MG TAB.CHEW PO SCH (09:51)
[2017-01-16] MEDS: predniSONE 10 MG TABLET PO SCH (09:51)
[2017-01-16] MEDS: ENOXAPARIN SODIUM 40 MG/0.4 ML SYRG SC SCH (16:07)
[2017-01-16] MEDS ORDERED: HALOPERIDOL LACTATE 5 MG/ML VIAL IM ONE (22:55)
[2017-01-17] MEDS: NYSTATIN 15 APPL BTL TP SCH (09:44)
[2017-01-17] MEDS: HYDROPHILIC OINTMENT 454 APPL JAR TP SCH (09:44)
[2017-01-17] MEDS: FLUOCINONIDE APPL TP SCH (09:44)
[2017-01-17] MEDS: MUPIROCIN 22 APPL TUBE TP SCH (09:45)
[2017-01-17] MEDS: REFRESH TEARS EACHEYE SCH (09:45)
[2017-01-17] MEDS: SERTRALINE HCL 50 MG TABLET PO SCH (09:45)
[2017-01-17] MEDS: hydrALAZINE HCL 50 MG TABLET PO PRN (09:45)
[2017-01-17] MEDS: predniSONE 10 MG TABLET PO SCH (09:45)
[2017-01-17] MEDS: ASPIRIN 81 MG TAB.CHEW PO SCH (09:46)
[2017-01-17] MEDS: CEFEPIME HCL 2 GM in DEXTROSE 5 % IN WATER 100 ML IV SCH ×2 (09:46)
[2017-01-17] MEDS: amLODIPine BESYLATE 5 MG TABLET PO SCH (09:46)
[2017-01-17 10:13] VITALS: BP 181/81
[2017-01-17] MEDS: NORMAL SALINE 1,000 ML IV PRN (11:04)
--- NOTE | 2017-01-17 11:21 | DS ---
(1) Rib fracture Problem: Acute Qualifiers: Rib fracture type: single rib Fracture type: closed Laterality: right Fracture healing: with routine healing (2) UTI (urinary tract infection) Problem: Acute Qualifiers: Urinary tract infection type: site unspecified Hematuria presence: with hematuria Qualified Code(s): N39.0 - Urinary tract infection, site not specified; R31.9 - Hematuria, unspecified (3) Weakness Problem: Acute (4) Dementia Problem: Chronic Qualifiers: Dementia type: Alzheimer's disease Alzheimer's disease onset: late-onset Dementia behavioral disturbance: without behavioral disturbance Qualified Code (s): G30.1 - Alzheimer's disease with late onset; F02.80 - Dementia in other diseases classified elsewhere without behavioral disturbance (5) HTN (hypertension) Problem: Chronic Qualifiers: Hypertension type: essential hypertension Qualified Code(s): I10 - Essential (primary) hypertension (6) SIRS (systemic inflammatory response syndrome) Problem: Resolved Description of Stay: Emir is an 81 year old male who presented to the ER with weakness and confusion. diagnosed with UTI, weakness and mental status changes and admitted for further work up. started on cefepime for uti - recent history of pseudomonas in urine. each day that patient received abx his cognition got better. patient also received iv fluids and was encourage to mobilize. was recommended to have a total of 5 days of iv cefepime, thus at discharge, orders were given to receive the last 2 days in the annex. follow up with pcp in 1-2 weeks. Procedures Performed: none Discharge Disposition: Home self care Disposition: Home self-care Condition: Undetermined Discharge Activity: Activity as tolerated Discharge Diet: General/regular food Problem Oriented Discharge Instructions to Patient/Family: Urinary Tract Infection, Adult, [id number] Additional Patient Instructions (free text): [facility] courtesy visit. Please fax and call upon discharge. Follow up in the [facility] [place] on Tuesday and Tuesday each day for a dose of IV cefepime at 1430. Be sure to drink enough water. Follow up with your primary care physician in 1-2 weeks. 02/03 at 2:[address] Boyce Prescriptions (Any new or edited meds): Cefepime HCl in Dextrose 5 % [Cefepime-Dextrose 2 gm/50 ml] 2 gm IV DAILY 2 Days Complete Home Medications List: Complete Home Medication List: amLODIPine BESYLATE [Norvasc] 5 mg PO DAILY 12/06/14 Aspirin 81 mg PO DAILY #30 tab.chew 03/16/16 predniSONE [Prednisone] 10 mg PO DAILY 06/17/16 Fluocinonide 15 gm TP DAILY 10/26/16 Sertraline HCl [Zoloft] 50 mg PO DAILY 10/26/16 Cefepime HCl [Maxipime] 2 gm IV Q24H vial 01/17/17 Cefepime HCl in Dextrose 5 % [Cefepime-Dextrose 2 gm/50 ml] 2 gm IV DAILY 2 Days 01/17/17
== END 2017-01-17 15:35 | disposition home or self-care (01) | DRG 690 ==
LOC: ER 13:28 → MS 17:38 → OBSVTOIN 01-13 14:01
PROVIDERS: ADMIT Nurse Practitioner Critical Care Medicine; ATTEND Internal Medicine
DX: N39.0 Urinary tract infection, site not specified (principal); S22.31XA Fracture of one rib, right side, initial encounter for closed fracture; R65.10 Systemic inflammatory response syndrome (SIRS) of non-infectious origin without acute organ dysfunction; R31.9 Hematuria, unspecified; R41.0 Disorientation, unspecified; W18.2XXA Fall in (into) shower or empty bathtub, initial encounter; Y92.002 Bathroom of unspecified non-institutional (private) residence as the place of occurrence of the external cause; J42 Unspecified chronic bronchitis; R53.1 Weakness; I10 Essential (primary) hypertension; G30.1 Alzheimer's disease with late onset; F02.80 Dementia in other diseases classified elsewhere, unspecified severity, without behavioral disturbance, psychotic disturbance, mood disturbance, and anxiety; B96.5 Pseudomonas (aeruginosa) (mallei) (pseudomallei) as the cause of diseases classified elsewhere; Z79.82 Long term (current) use of aspirin
CPT/HCPCS: 36415; 71010; 72170; 80048; 80053; 81001; 83605; 84145; 85025; 87040; 87081; 87086; 93005; 96365; 97110; 97116; 97162; 97165; 97530; 99284; G0378

== ENCOUNTER 2017-05-28 10:53 | Emergency (ER) | payer MEDICARE, BC ==
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
[2017-05-28 11:50] VITALS: BP 168/89
== END 2017-05-28 12:09 | disposition home or self-care (01) ==
LOC: ER 10:53
DX: S22.42XA Multiple fractures of ribs, left side, initial encounter for closed fracture (principal); Z87.440 Personal history of urinary (tract) infections; W01.198A Fall on same level from slipping, tripping and stumbling with subsequent striking against other object, initial encounter; Y92.008 Other place in unspecified non-institutional (private) residence as the place of occurrence of the external cause

== ENCOUNTER 2017-05-31 11:05 | Inpatient (IN) | payer MEDICARE, BC ==
[2017-05-31] MEDS ORDERED: ALBUTEROL SULFATE/IPRATROPIUM 3 ML NEBU IH ONE ×2 (11:32→11:33)
[2017-05-31] MEDS ORDERED: MORPHINE SULFATE 2 MG/ML DISP.SYRIN IV ONE (11:44)
[2017-05-31 12:02] LABS: Hematocrit 39.8 % (42.0-52.0); Hemoglobin 12.9 gm/dL (13.5-18.0); Mean Cell Volume 83.1 fl (78-100); Mean Corpuscular Hemoglobin 26.9 pg (27-31); Mean Corpuscular Hgb Conc 32.4 g/dl (32-36); Mean Platelet Volume 10.8 fl (6.0-9.5); Neutrophil # 9.6 K/mm3 (1.3-6.0); Neutrophil % 84.1 % (42-75.0); Platelet Count 212 K/mm3 (150-450); Red Blood Count 4.79 M/mm3 (4.7-6.0); White Blood Count 11.3 K/mm3 (4.0-10.5)
[2017-05-31 12:23] LABS: ALT 10 U/L (19-67); AST 8 U/L (0-48); Alkaline Phosphatase * 80 U/L (50-170); Anion Gap 14.2 mmol/L (6.8-13.8); BUN/Creatinine Ratio 17.5 (9.0-21.6); Bilirubin, Total 0.3 mg/dL (0.0-1.1); Blood Urea Nitrogen 27 mg/dL (6-23); Ca. Corrected For Albumin 9.5 mg/dL (8.4-10.2); Carbon Dioxide 25.7 mmol/L (24-32.6); Chloride 110 mmol/L (97-106); Glucose * 130 mg/dL (70-110); Potassium 3.9 mmol/L (3.4-4.6); Sodium 146 mmol/L (132-142); Total Protein 6.6 gm/dL (6.2-8.2); Troponin I Less than 0.017 ng/ml (0.00-0.10)
[2017-05-31] MEDS ORDERED: MORPHINE SULFATE 2 MG/ML DISP.SYRIN ONE (13:52)
[2017-05-31 13:57] LABS: Urine Bacteria 2+; Urine RBC None Seen /hpf (0-5); Urine WBC >50 /hpf (0-5)
[2017-05-31] MEDS ORDERED: NORMAL SALINE 250 ML IV PRN (13:57)
[2017-05-31] MEDS ORDERED: LEVOFLOXACIN/D5W 500 MG/100 ML BAG IV SCH (14:00)
[2017-05-31] MEDS ORDERED: LEVOFLOXACIN/D5W 750 MG/150 ML BAG IV ONE (14:04)
--- NOTE | 2017-05-31 14:24 | ERNOTE ---
Dyspnea - Date Date of Service: 05/31/17 - General Presenting Symptoms: shortness of breath, other - confusion, weakness Time Seen by Provider: 05/31/17 11:38 Source: patient, family Exam Limitations: hard of hearing - Immun/Allergies/Home Medications Immunizations: IMMUNIZATION HX Immunizations Up to Date Yes History of Influenza Vaccine Yes Hx Pneumococcal Vaccination Yes Allergies/Adverse Reactions: Allergies Penicillins Adverse Reaction (Severe, Verified 05/31/17 11:42) Hives sulfamethoxazole [From Bactrim] Adverse Reaction (Severe, Verified 05/31/17 11: 42) Vomiting trimethoprim [From Bactrim] Adverse Reaction (Severe, Verified 05/31/17 11:42) Vomiting Home Medications: HOME MEDICATIONS Acetaminophen [Tylenol] 650 mg PO Q4H PRN 05/31/17 [Last Taken Unknown] - History of Present Illness Narrative: Patient presents to the ED with family for rib pain, generalized weakness, increased confusion and failing his home living circumstance. No fever. No vomiting. He fell and had rib fractures for which I saw him Tuesday. Today more generalized weakness, seeming confused. No CP but does feel SOB. uses 2LNC home O2 at night. No abdominal pain. he is [place], complication Hx. 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 Initiating event: Reports: unknown Modifying Factors - (Improves): Reports: nothing Modifying Factors (Worsens): Reports: nothing Associated Symptoms-Dyspnea: Denies: fever/chills, lightheadedness Prior Treatment: Reports: recently seen Review of Systems - Review of Systems Constitutional: Absent: fever Respiratory: Present: shortness of breath, cough Cardiology: Absent: chest pain Gastrointestinal/Abdominal: Absent: abdominal pain Genitourinary: Absent: dysuria All Other Systems: All systems neg except as marked - Patient's Past Medical History Patient History - Medical: Arthritis, Dementia, UTI'S, Other Patient History - Cardiac/Respiratory: Coronary Heart Disease, COPD, Hypertension Patient History - Cancer: No Hx of Cancer Patient History - Surgical Procedures: Cataracts, Other Patient History - Other: None - Family History Mother Family History - Medical: , Alzheimer's Disease Family History - Cardiac/Respiratory: No pertinent hx Family History - Cancer: No pertinent family hx Father Family History - Medical: Family History - Cancer: Throat - Social History Living Situations: home Abuse History: No History of abuse Psych History: No pertinent hx Does anyone smoke in the home?: No Smoking Status: Former smoker Have you smoked in the past 12 months: No Do you dip or chew tobacco: No Alcohol Use: none Drug Use: none - Immunizations Immunizations Up to Date: Yes Hx Pneumococcal Vaccination: Yes History of Influenza Vaccine: Yes Physical Exam - Physical Exam General Appearance: Present: alert, no apparent distress Head Exam: Present: normal inspection Eye Exam: Normal inspection: bilateral, PERRL: bilateral Ears, Nose, Throat: Present: normal ENT inspection Neck: Present: normal inspection Respiratory: Present: no respiratory distress, no accessory muscle use, chest tenderness, other - faint scattered wheezes Cardiovascular/Chest: Present: regular rate, rhythm, normal peripheral pulses Gastrointestinal/Abdominal: Present: normal bowel sounds, nontender, soft Back Exam: Absent: CVA tenderness (R), CVA tenderness (L) Extremity Exam: Present: other - no calf tenderness Neurological Exam: Present: alert, other - no acute unialteral focal motor or sensory deficits Skin Exam: Present: normal color, warm/dry ED Progress - Results and Orders Patient's Lab Results:: I have reviewed the patient's lab results. - Vital Signs Patient's Vital Signs:: I have reviewed the patient's vital signs. Vital Signs: Vital Signs 05/31/17 05/31/17 05/31/17 11:08 11:16 11:34 Temperature 36.4 C L Pulse Rate 63 65 66 Respiratory 21 H 20 Rate Blood Pressure 179/83 O2 Sat by Pulse 97 95 Oximetry 05/31/17 05/31/17 05/31/17 11:39 12:15 12:45 Temperature Pulse Rate 64 65 70 Respiratory 20 22 H 20 Rate Blood Pressure 150/70 155/77 160/74 O2 Sat by Pulse 96 95 97 Oximetry 05/31/17 05/31/17 05/31/17 13:15 13:45 14:11 Temperature Pulse Rate 61 102 H 63 Respiratory 15 96 H 17 Rate Blood Pressure 171/86 182/83 172/84 O2 Sat by Pulse 99 98 96 Oximetry - EKG EKG: NSR EKG read: Interp. by me EKG Comments: NSR rate 63. No STEMI. Non-specific. - X-Ray X-Ray #1 X-Ray: chest Interpretation: Interp. by me X-ray Comments: I reviewed official report - Progress/Reassessment Chief Complaint: Dyspnea Progress Note-Subjective: 05/31/17 14:22 I spoke with Chanel Clifton, hospitalist. She will admit. IV Abx given and pain medicaitions Departure Clinical Impression: UTI (urinary tract infection), Generalized weakness, Fall, Rib fracture - Departure Disposition: [facility] Condition: Stable
--- NOTE | 2017-05-31 16:27 | HP ---
Chief Complaint - Chief Complaint Date of Service: 05/31/17 Time of Service: 14:07 Chief Complaint: UTI, dyspnea, weakness, confusion History of Present Illness: Emir is an 81 year old male with a PMH of COPD, RA, CAD, HTN, CKD, and AAA who presented to the ER today with c/o increased confusion, rib pain, weakness, dyspnea and inability to perform ADLs at home. pt with chronic respiratory failure - uses 2L O2 at hs. was seen in the ER on 05/28/17 after a fall at home and diagnosed with 2 mildly displaced rib fractures. ER eval today revealed elevated wbc at 11.3 with 84.1% neutrophils. hgb/hct at 12.9/39.8. mild hypernatremia with Na+ at 146. creatinine at 1.54 (baseline at 1.2-1.7). EKG showing NSR with HR 63 and non-specific st-t wave changes. chest xray showing no acute cardiopulmonary changes. UA positive for >50 wbc, +2 bacteria and no RBCs, unable to obtain full UA due to purulent nature of UA. lung sounds in ER wheezing, improved after 1 duoneb breathing treatment. patient with significant increase in confusion but has a history of decline in mental status with urinary tract infections. patient was previously treated for UTI on 04/14/17 outpatient with cipro po bid x7 days. urine culture grew pseudomonas. family is considering SNF placement as he has become unable to do ADLs at home. Patient to be admitted for UTI r/o pylonephritis, weakness, COPD exac and discharge planning issues. - Patient's Past Medical History Patient History - Medical: Arthritis, Dementia, Renal Disease, UTI'S, Other Patient History - Cardiac/Respiratory: Aneurysm, Coronary Heart Disease, COPD, Hypertension, Peripheral Vascular Disease Patient History - Cancer: No Hx of Cancer Patient History - Surgical Procedures: Cataracts, Other - cochlear implant 2015 Patient History - Other: None - Family History Mother Family History - Medical: , Alzheimer's Disease Family History - Cardiac/Respiratory: No pertinent hx Family History - Cancer: No pertinent family hx Father Family History - Medical: Family History - Cancer: Throat - Social History Living Situations: home Abuse History: No History of abuse Psych History: No pertinent hx Does anyone smoke in the home?: No Smoking Status: Former smoker Have you smoked in the past 12 months: No Do you dip or chew tobacco: No Alcohol Use: none Drug Use: none - Immunizations Immunizations Up to Date: Yes Hx Pneumococcal Vaccination: Yes History of Influenza Vaccine: Yes Review Of Systems (GEN) - Review of Systems Generalized/Overall Review: Present: Weakness - ROS obtained from ERP notes when family was present. family is not currently present. unable to obtain full ROS due to patient condition., Malaise EENTM: Present: No Symptoms Reported Respiratory: Present: Shortness of Breath, Wheezing Cardiac: Present: No Symptoms Reported Abdominal: Present: No Symptoms Reported Genitourinary: Present: Frequency, Dysuria Musculoskeletal: Present: Joint Pain, Muscle Pain Neurological: Present: Weakness Skin: Present: No Symptoms Reported Endocrine: Present: No Symptoms Reported Immunizations: IMMUNIZATION HX Immunizations Up to Date Yes History of Influenza Vaccine Yes Hx Pneumococcal Vaccination Yes Allergies/Adverse Reactions: Allergies Allergy/AdvReac Type Severity Reaction Status Date / Time Penicillins AdvReac Severe Hives Verified 05/31/17 11:42 sulfamethoxazole AdvReac Severe Vomiting Verified 05/31/17 11:42 [From Bactrim] trimethoprim [From Bactrim] AdvReac Severe Vomiting Verified 05/31/17 11:42 Home Medications: HOME MEDICATIONS Acetaminophen [Tylenol] 650 mg PO Q4H PRN 05/31/17 [Last Taken Unknown] Exam - Exam Vital Signs: Vital Signs - Last Taken Temp 37.1 C 05/31/17 15:54 Pulse 68 05/31/17 15:54 Resp 24 H 05/31/17 15:54 BP 149/64 05/31/17 15:54 Pulse Ox 97 05/31/17 15:54 Constitutional: Present: No distress, Other - confused and uncooperative, states "leave me alone"., Elderly ENT Exam: Present: hard of hearing Eye Exam: bilateral eye: normal inspection Neck: Present: supple Back Exam: Present: no vertebral tenderness, CVA tenderness (L). Absent: CVA tenderness (R) Breasts: Present: Exam deferred Respiratory: Present: respiratory distress - mild, expiration (prolonged), other - tachypnea, swallow and quick respirations Cardiovascular/Chest: Present: normal peripheral pulses, regular rate, rhythm Peripheral Pulses: carotid (R): 2+, carotid (L): 2+, radial (R): 2+, radial (L) : 2+ Abdomen: Present: soft, nontender, nondistended /Rectal: Present: Exam deferred Extremity: Present: non-tender, no calf tenderness Skin Exam: Present: warm/dry, no cyanosis, pallor Diagnostic Studies: Abnormal Lab Results 05/31/17 Range/Units Unknown Urine WBC >50 H (0-5) /hpf Urine Bacteria 2+ H (NONE) Urine Comment Culture ordered L Laboratory Results WBC 11.3 K/mm3 (4.0-10.5) H 05/31/17 11:55 RBC 4.79 M/mm3 (4.7-6.0) 05/31/17 11:55 Hgb 12.9 gm/dL (13.5-18.0) L 05/31/17 11:55 Hct 39.8 % (42.0-52.0) L 05/31/17 11:55 MCV 83.1 fl (78-100) 05/31/17 11:55 MCH 26.9 pg (27-31) L 05/31/17 11:55 MCHC 32.4 g/dl (32-36) 05/31/17 11:55 RDW 17.0 % (11.5-14.0) H 05/31/17 11:55 Plt Count 212 K/mm3 (150-450) 05/31/17 11:55 MPV 10.8 fl (6.0-9.5) H 05/31/17 11:55 Immature Gran % (Auto) 1.10 % (0.001-0.429) H 05/31/17 11:55 Immature Gran # (Auto) 0.13 K/mm3 (0.000-0.0310) H 05/31/17 11:55 Neutrophils % 84.1 % (42-75.0) H 05/31/17 11:55 Lymphocytes % 4.9 % (20-51) L 05/31/17 11:55 Monocytes % 7.1 % (0.0-9) 05/31/17 11:55 Eosinophils % 2.5 % (0.0-3.0) 05/31/17 11:55 Basophils % 0.3 % (0.0-1.0) 05/31/17 11:55 Nucleated RBC % 0.0 k/mm3 (0-1) 05/31/17 11:55 Neutrophils # 9.6 K/mm3 (1.3-6.0) H 05/31/17 11:55 Lymphocytes # 0.6 k/mm3 (1.5-3.5) L 05/31/17 11:55 Monocytes # 0.8 k/mm3 (0.0-1.0) 05/31/17 11:55 Eosinophils # 0.3 k/mm3 (0.0-0.7) 05/31/17 11:55 Absolute Basophils 0.0 k/mm3 (0.0-0.1) 05/31/17 11:55 Sodium 146 mmol/L (132-142) H 05/31/17 11:55 Plasma Sodium 146 mmol/L (130-142) H 05/31/17 11:55 Potassium 3.9 mmol/L (3.4-4.6) 05/31/17 11:55 Chloride 110 mmol/L (97-106) H 05/31/17 11:55 Carbon Dioxide 25.7 mmol/L (24-32.6) 05/31/17 11:55 Anion Gap 14.2 mmol/L (6.8-13.8) H 05/31/17 11:55 BUN 27 mg/dL (6-23) H D 05/31/17 11:55 Creatinine 1.54 mg/dL (0.4-1.4) H D 05/31/17 11:55 Est GFR (Non-Af Amer) 46 mL/min (60-130) L D 05/31/17 11:55 BUN/Creatinine Ratio 17.5 (9.0-21.6) 05/31/17 11:55 Random Glucose 130 mg/dL (70-110) H 05/31/17 11:55 Lactic Acid, Venous 1.7 mmol/L (0.4-1.9) 05/31/17 11:55 Calcium 9.0 mg/dL (7.9-10.9) 05/31/17 11:55 Calcium Adj for Albumin 9.5 mg/dL (8.4-10.2) 05/31/17 11:55 Total Bilirubin 0.3 mg/dL (0.0-1.1) 05/31/17 11:55 AST 8 U/L (0-48) 05/31/17 11:55 ALT 10 U/L (19-67) L 05/31/17 11:55 Alkaline Phosphatase 80 U/L (50-170) 05/31/17 11:55 Troponin I Less than 0.017 ng/ml (0.00-0.10) 05/31/17 11:55 Total Protein 6.6 gm/dL (6.2-8.2) 05/31/17 11:55 Albumin 3.0 gm/dl (3.4-5.0) L 05/31/17 11:55 Urine RBC None seen /hpf (0-5) 05/31/17 Unknown Urine WBC >50 /hpf (0-5) H 05/31/17 Unknown Ur Epithelial Cells 0-5 /hpf (0-5) 05/31/17 Unknown Urine Bacteria 2+ (NONE) H 05/31/17 Unknown Urine Comment Culture ordered L 05/31/17 Unknown Assessment/Plan - Narrative Narrative: UTI, rule out pylonephritis. - history of mental status changes when UTI present - UA c/w infection - Start cefepime 1 gm q 12 hours - Day #1 - given history of pseudomonas in urine from UTI 04/14/2017 - also with left CVA tenderness --> possible complicated UTI, rule out pylonephritis. - Renal US ordered - has history of recurrent UTI - urine culture pending - blood cultures pending - start probiotics. - recheck labs in am. COPD exac. - wheezing documented in ERP notes, improved with duoneb tx. - patient still with respiratory distress, tachypnea, quick shallow breathing with prolonged expiratory phase. - incentive spirometer q 2 hours - Duonebs QID - Antibiotics: - Cefepime 1 gm iv q 12 hours - Day #1 - Azithromycin 500 mg iv q 24 hours x 5 doses - Day #1 - check O2 sats with vital signs q 4 hours - sputum culture ordered and pending. - blood cultures pending - daily weight / strict I&Os - vital signs q 4 hours weakness - likely secondary to infection / deconditioning - consult PT/OT AMS - likely secondary to UTI, as this has happened multiple times in the past. - monitor mental status closely, continue IV abx to treat infection - family does not want any haldol given for agitation but is okay with ativan as needed discharge planning issues - patient having significant issues with ADLs at home, will likely need SNF at d/c - currently at SNF, family would like pt to go to same facility Chronic respiratory failure - chronic use of 2L O2 at hs. - unable to determine if acute on chronic respiratory failure has occurred as first documented O2 sat is on 2L O2 - await further input from Dr Boyce Chronic diastolic heart failure / pulmonary HTN - check BNP - cautious use of IV fluids as patient has a tendency to fluid overload. - strict I&Os - daily weights anemia of chronic disease - hgb stable. CKD, stage 3 - baseline creatinine 1.4 - 1.7 - creatinine currently stable. Code status: Full code with restrictions VTE: lovenox GI proph: protonix po. - Assessment/Plan (1) UTI (urinary tract infection) Problem: Acute Qualifiers: Urinary tract infection type: site unspecified Hematuria presence: without hematuria Qualified Code(s): N39.0 - Urinary tract infection, site not specified (2) Weakness Problem: Acute (3) Altered mental status Problem: Acute Qualifiers: Altered mental status type: disorientation Qualified Code(s): R41.0 - Disorientation, unspecified (4) COPD (chronic obstructive pulmonary disease) Problem: Acute Qualifiers: COPD type: COPD with acute exacerbation Qualified Code(s): J44.1 - Chronic obstructive pulmonary disease with (acute) exacerbation (5) Respiratory failure, chronic Problem: Chronic Qualifiers: Respiratory failure complication: unspecified whether with hypoxia or hypercapnia Qualified Code(s): J96.10 - Chronic respiratory failure, unspecified whether with hypoxia or hypercapnia (6) Anemia of chronic disease Problem: Chronic (7) Chronic diastolic (congestive) heart failure Problem: Chronic (8) HTN (hypertension) Problem: Chronic Qualifiers: Hypertension type: essential hypertension Qualified Code(s): I10 - Essential (primary) hypertension (9) Peripheral arterial disease Problem: Chronic (10) Pulmonary hypertension Problem: Chronic (11) Rheumatoid arthritis Problem: Chronic Qualifiers: Rheumatoid arthritis location: multiple sites Rheumatoid factor presence: with rheumatoid factor Qualified Code(s): 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
[2017-05-31] MEDS ORDERED: guaiFENesin 100 MG/5 ML BTL PO PRN (16:29)
[2017-05-31] MEDS ORDERED: 0.5 NORMAL SALINE 1,000 ML IV PRN (16:34)
[2017-05-31] MEDS: METHYLPREDNISOLONE SOD SUCC 80 MG in WATER FOR INJ.,BACTERIOSTATIC 0 ML IV SCH (17:35)
[2017-05-31] MEDS: ENOXAPARIN SODIUM 40 MG/0.4 ML SYRG SC SCH (17:36)
[2017-05-31] MEDS: CEFEPIME HCL 1 GM in DEXTROSE 5 % IN WATER 100 ML IV SCH ×2 (17:37)
[2017-05-31] MEDS: PANTOPRAZOLE SODIUM 40 MG TABLET.EC PO SCH (17:41)
[2017-05-31] MEDS: AZITHROMYCIN 500 MG in DEXTROSE 5 % IN WATER 250 ML IV SCH ×2 (18:21)
[2017-05-31] MEDS ORDERED: FUROSEMIDE 10 MG/ML VIAL IV ONE (19:07)
[2017-05-31] MEDS: LORazepam 2 MG/ML DISP.SYRIN IV PRN (20:07)
[2017-05-31] MEDS: SACCHAROMYCES BOULARDII 250 MG CAPSULE PO SCH ×2 (20:07→20:14)
[2017-06-01] MEDS: METHYLPREDNISOLONE SOD SUCC 80 MG in WATER FOR INJ.,BACTERIOSTATIC 0 ML IV SCH ×3 (00:06→16:44)
[2017-06-01] MEDS: MORPHINE SULFATE 2 MG/ML DISP.SYRIN IV PRN ×2 (00:06→01:30)
[2017-06-01] MEDS: LORazepam 2 MG/ML DISP.SYRIN IV PRN (01:30)
[2017-06-01] MEDS ORDERED: hydrALAZINE HCL 50 MG TABLET PO PRN (03:43)
[2017-06-01] MEDS ORDERED: ENALAPRILAT DIHYDRATE 1.25 MG/ML VIAL IV ONE (04:01)
[2017-06-01] MEDS: CEFEPIME HCL 1 GM in DEXTROSE 5 % IN WATER 100 ML IV SCH ×4 (05:18→18:33)
[2017-06-01 05:45] LABS: Hematocrit 38.2 % (42.0-52.0); Hemoglobin 12.5 gm/dL (13.5-18.0); Mean Cell Volume 81.1 fl (78-100); Mean Corpuscular Hemoglobin 26.5 pg (27-31); Mean Corpuscular Hgb Conc 32.7 g/dl (32-36); Mean Platelet Volume 10.2 fl (6.0-9.5); Neutrophil # 6.2 K/mm3 (1.3-6.0); Neutrophil % 93.8 % (42-75.0); Platelet Count 227 K/mm3 (150-450); Red Blood Count 4.71 M/mm3 (4.7-6.0); Red Cell Distribution Width 16.5 % (11.5-14.0); White Blood Count 6.6 K/mm3 (4.0-10.5)
[2017-06-01 06:15] LABS: Albumin * 2.9 gm/dl (3.4-5.0); Anion Gap 16.1 mmol/L (6.8-13.8); BUN/Creatinine Ratio 16.9 (9.0-21.6); Bilirubin, Total 0.4 mg/dL (0.0-1.1); Ca. Corrected For Albumin 9.8 mg/dL (8.4-10.2); Calcium * 9.2 mg/dL (7.9-10.9); Carbon Dioxide 22.9 mmol/L (24-32.6); Total Protein 6.8 gm/dL (6.2-8.2)
[2017-06-01] MEDS: PANTOPRAZOLE SODIUM 40 MG TABLET.EC PO SCH (08:38)
[2017-06-01] MEDS: SACCHAROMYCES BOULARDII 250 MG CAPSULE PO SCH ×2 (08:39→21:21)
[2017-06-01] MEDS: TERBINAFINE HCL 250 MG TABLET PO SCH (09:57)
[2017-06-01] MEDS: FUROSEMIDE 40 MG TABLET PO SCH (09:57)
[2017-06-01] MEDS: POTASSIUM CHLORIDE 20 MEQ TABLET.SA PO SCH (09:59)
[2017-06-01] MEDS: LEFLUNOMIDE 20 MG TABLET PO SCH (09:59)
[2017-06-01] MEDS: MUPIROCIN 22 APPL TUBE TP SCH ×3 (09:59→16:42)
[2017-06-01] MEDS: ACETAMINOPHEN 325 MG TABLET PO PRN (10:05)
[2017-06-01] MEDS: amLODIPine BESYLATE 5 MG TABLET PO SCH ×2 (10:06→10:09)
[2017-06-01] MEDS: ALBUTEROL SULFATE 2.5 MG/3 ML VIAL.NEB IH SCH ×3 (10:11→18:13)
--- NOTE | 2017-06-01 10:28 | PN ---
Subjective - Date and Time Seen Date: 06/01/17 Time: 10:28 Subjective Narrative: feeling much better, not as confused. more cooperative with staff. Objective - Review of Systems Generalized/Overall Review: Reports: Weakness. Denies: Chills, Fever EENTM: Reports: No Symptoms Reported Respiratory: Reports: Shortness of Breath - improved though. Denies: Wheezing Cardiac: Reports: No Symptoms Reported Abdominal: Reports: No Symptoms Reported Genitourinary Symptoms: Reports: No Symptoms Reported Musculoskeletal Complaints: Reports: No Symptoms Reported Neurological: Reports: No Symptoms Reported Skin: Reports: No Symptoms Reported Endocrine: Reports: No Symptoms Reported Misc: All systems neg except as marked - Vitals Vitals: Last Vital Signs Temp 36.6 C 06/01/17 08:40 Pulse 72 06/01/17 10:11 Resp 22 H 06/01/17 10:11 BP 145/77 06/01/17 10:06 Pulse Ox 93 06/01/17 10:11 - Abnormal Lab Findings Abnormal Lab Findings: Abnormal Lab Results 05/31/17 06/01/17 06/01/17 Range/Units Unknown 05:30 05:30 Hgb 12.5 L (13.5-18.0) gm/dL Hct 38.2 L (42.0-52.0) % MCH 26.5 L (27-31) pg RDW 16.5 H (11.5-14.0) % MPV 10.2 H (6.0-9.5) fl Immature Gran % (Auto) 1.10 H (0.001-0.429) % Immature Gran # (Auto) 0.07 H (0.000-0.0310) K/mm3 Neutrophils % 93.8 H (42-75.0) % Lymphocytes % 4.3 L (20-51) % Neutrophils # 6.2 H (1.3-6.0) K/mm3 Lymphocytes # 0.3 L (1.5-3.5) k/mm3 Plasma Sodium 143 H (130-142) mmol/L Chloride 107 H (97-106) mmol/L Carbon Dioxide 22.9 L (24-32.6) mmol/L Anion Gap 16.1 H (6.8-13.8) mmol/L BUN 26 H (6-23) mg/dL Creatinine 1.54 H (0.4-1.4) mg/dL Est GFR (Non-Af Amer) 46 L (60-130) mL/min Random Glucose 181 H D (70-110) mg/dL ALT 10 L (19-67) U/L Albumin 2.9 L (3.4-5.0) gm/dl Urine WBC >50 H (0-5) /hpf Urine Bacteria 2+ H (NONE) Urine Comment Culture ordered L - Exam Constitutional: Present: Alert, Cooperative, No distress, Elderly ENT Exam: Present: hard of hearing Neck: Present: supple Breasts: Present: Exam deferred Respiratory: Present: chest non-tender, no respiratory distress, crackles - bilat bases. Absent: expiration (prolonged) Cardiovascular/Chest: Present: regular rate, rhythm, no chest tenderness, no edema Abdomen: Present: soft, nontender, nondistended /Rectal: Present: Exam deferred Extremity: Present: non-tender, normal inspection, no calf tenderness Skin Exam: Present: normal color, warm/dry, no cyanosis Assessment/Plan Plan Narrative: UTI, rule out pylonephritis. - history of mental status changes when UTI present - mental status improving - UA c/w infection - Start cefepime 1 gm q 12 hours - Day #2 - given history of pseudomonas in urine from UTI 04/14/2017 - also with left CVA tenderness --> possible complicated UTI, rule out pylonephritis. - renal US shows: no evidence for obstructive uropathy or renal mass, small left sided parapelvic cyst and incidental right hepatic cyst. - has history of recurrent UTI - urine culture pending - prelim culture growing gram negative bacilli - blood cultures pending - prelim blood cultures negative x2 - probiotics ordered. - recheck labs in am. COPD exac. - respiratory status improving significantly. - incentive spirometer q 2 hours - Duonebs QID - Antibiotics: - Cefepime 1 gm iv q 12 hours - Day #2 - Azithromycin 500 mg iv q 24 hours x 5 doses - Day #2 - check O2 sats with vital signs q 4 hours - sputum culture ordered and pending. - blood cultures pending - prelim cultures negative x2 - daily weight / strict I&Os - vital signs q 4 hours weakness - likely secondary to infection / deconditioning - consult PT/OT AMS - likely secondary to UTI, as this has happened multiple times in the past. - monitor mental status closely, continue IV abx to treat infection - family does not want any haldol given for agitation but is okay with ativan as needed - mentation improving. discharge planning issues - patient having significant issues with ADLs at home, will likely need SNF at d/c - currently at SNF, family would like pt to go to same facility Chronic respiratory failure - chronic use of 2L O2 at hs. Chronic diastolic heart failure / pulmonary HTN - lasix 20 mg given iv x1 05/31/17 - cautious use of IV fluids as patient has a tendency to fluid overload. - strict I&Os - daily weights - no overt acute CHF anemia of chronic disease - hgb stable. CKD, stage 3 - baseline creatinine 1.4 - 1.7 - creatinine currently stable. Code status: Full code with restrictions VTE: lovenox GI proph: protonix po. - Problems/Diagnosis (1) UTI (urinary tract infection) Problem: Acute Qualifiers: Urinary tract infection type: site unspecified Hematuria presence: without hematuria Qualified Code(s): N39.0 - Urinary tract infection, site not specified (2) Weakness Problem: Acute (3) Altered mental status Problem: Acute Qualifiers: Altered mental status type: disorientation Qualified Code(s): R41.0 - Disorientation, unspecified (4) COPD (chronic obstructive pulmonary disease) Problem: Acute Qualifiers: COPD type: COPD with acute exacerbation Qualified Code(s): J44.1 - Chronic obstructive pulmonary disease with (acute) exacerbation (5) Respiratory failure, chronic Problem: Chronic Qualifiers: Respiratory failure complication: unspecified whether with hypoxia or hypercapnia Qualified Code(s): J96.10 - Chronic respiratory failure, unspecified whether with hypoxia or hypercapnia (6) Anemia of chronic disease Problem: Chronic (7) Chronic diastolic (congestive) heart failure Problem: Chronic (8) HTN (hypertension) Problem: Chronic Qualifiers: Hypertension type: essential hypertension Qualified Code(s): I10 - Essential (primary) hypertension (9) Peripheral arterial disease Problem: Chronic (10) Pulmonary hypertension Problem: Chronic (11) Rheumatoid arthritis Problem: Chronic Qualifiers: Rheumatoid arthritis location: multiple sites Rheumatoid factor presence: with rheumatoid factor Qualified Code(s): 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
[2017-06-01] MEDS: HYDROPHILIC OINTMENT 454 APPL JAR TP SCH ×2 (12:17→21:20)
[2017-06-01] MEDS: HYDROcodone/ACETAMINOPHEN 1 EACH TABLET PO PRN ×2 (13:41→21:23)
[2017-06-01] MEDS: ENOXAPARIN SODIUM 40 MG/0.4 ML SYRG SC SCH (16:43)
[2017-06-01] MEDS: HYDROCORTISONE 30 APPL TUBE TP PRN (16:43)
[2017-06-01] MEDS: AZITHROMYCIN 500 MG in DEXTROSE 5 % IN WATER 250 ML IV SCH ×2 (16:43)
[2017-06-02] MEDS: ALBUTEROL SULFATE 2.5 MG/3 ML VIAL.NEB IH SCH ×4 (00:09→18:16)
[2017-06-02] MEDS: METHYLPREDNISOLONE SOD SUCC 80 MG in WATER FOR INJ.,BACTERIOSTATIC 0 ML IV SCH ×3 (00:23→20:11)
[2017-06-02] MEDS: LORazepam 2 MG/ML DISP.SYRIN IV PRN ×2 (00:23→20:33)
[2017-06-02] MEDS: MORPHINE SULFATE 2 MG/ML DISP.SYRIN IV PRN (00:43)
[2017-06-02] MEDS: CEFEPIME HCL 1 GM in DEXTROSE 5 % IN WATER 100 ML IV SCH ×4 (05:15→17:24)
[2017-06-02 06:23] LABS: Hematocrit 36.7 % (42.0-52.0); Mean Cell Volume 81.6 fl (78-100); Mean Corpuscular Hemoglobin 26.7 pg (27-31); Mean Corpuscular Hgb Conc 32.7 g/dl (32-36); Mean Platelet Volume 10.5 fl (6.0-9.5); Neutrophil # 13.7 K/mm3 (1.3-6.0); Neutrophil % 94.8 % (42-75.0); Platelet Count 218 K/mm3 (150-450); Red Cell Distribution Width 16.8 % (11.5-14.0); White Blood Count 14.5 K/mm3 (4.0-10.5)
[2017-06-02 06:30] LABS: Anion Gap 16.8 mmol/L (6.8-13.8); BUN/Creatinine Ratio 25.3 (9.0-21.6); Carbon Dioxide 23.4 mmol/L (24-32.6); Estimated Creat Clear 31.7; Potassium 4.2 mmol/L (3.4-4.6)
[2017-06-02] MEDS: PANTOPRAZOLE SODIUM 40 MG TABLET.EC PO SCH (06:41)
[2017-06-02] MEDS: NORMAL SALINE 1,000 ML IV PRN ×2 (07:43→17:28)
[2017-06-02] MEDS: MUPIROCIN 22 APPL TUBE TP SCH ×3 (10:19→16:16)
[2017-06-02] MEDS: LEFLUNOMIDE 20 MG TABLET PO SCH (10:19)
[2017-06-02] MEDS: HYDROPHILIC OINTMENT 454 APPL JAR TP SCH ×2 (10:19→20:12)
[2017-06-02] MEDS: TERBINAFINE HCL 250 MG TABLET PO SCH (10:20)
[2017-06-02] MEDS: POTASSIUM CHLORIDE 20 MEQ TABLET.SA PO SCH (10:20)
[2017-06-02] MEDS: FUROSEMIDE 40 MG TABLET PO SCH (10:20)
[2017-06-02] MEDS: amLODIPine BESYLATE 5 MG TABLET PO SCH (10:21)
[2017-06-02] MEDS: SACCHAROMYCES BOULARDII 250 MG CAPSULE PO SCH ×2 (10:21→20:12)
[2017-06-02] MEDS: HYDROCORTISONE 30 APPL TUBE TP PRN (11:28)
[2017-06-02] MEDS: diphenhydrAMINE HCL 50 MG/ML VIAL IV PRN ×2 (11:30→23:51)
--- NOTE | 2017-06-02 12:50 | PN ---
Subjective Subjective Narrative: feeling better, tired. states he likes the breathing treatments and would like to be prescribed a machine for home use. Objective - Review of Systems Generalized/Overall Review: Reports: Fatigue EENTM: Reports: No Symptoms Reported Respiratory: Reports: Shortness of Breath - improving Cardiac: Reports: No Symptoms Reported Abdominal: Reports: No Symptoms Reported Genitourinary Symptoms: Reports: No Symptoms Reported Musculoskeletal Complaints: Reports: No Symptoms Reported Neurological: Reports: No Symptoms Reported Skin: Reports: No Symptoms Reported Endocrine: Reports: No Symptoms Reported Misc: All systems neg except as marked - Vitals Vitals: Last Vital Signs Temp 36.8 C 06/02/17 10:37 Pulse 88 06/02/17 10:37 Resp 18 06/02/17 10:37 BP 136/68 06/02/17 10:37 Pulse Ox 94 06/02/17 10:37 - Abnormal Lab Findings Abnormal Lab Findings: Abnormal Lab Results 06/02/17 06/02/17 Range/Units 05:40 05:40 WBC 14.5 H D (4.0-10.5) K/mm3 RBC 4.50 L (4.7-6.0) M/mm3 Hgb 12.0 L (13.5-18.0) gm/dL Hct 36.7 L (42.0-52.0) % MCH 26.7 L (27-31) pg RDW 16.8 H (11.5-14.0) % MPV 10.5 H (6.0-9.5) fl Immature Gran % (Auto) 1.00 H (0.001-0.429) % Immature Gran # (Auto) 0.15 H (0.000-0.0310) K/mm3 Neutrophils % 94.8 H (42-75.0) % Lymphocytes % 2.0 L (20-51) % Neutrophils # 13.7 H (1.3-6.0) K/mm3 Lymphocytes # 0.3 L (1.5-3.5) k/mm3 Plasma Sodium 143 H (130-142) mmol/L Carbon Dioxide 23.4 L (24-32.6) mmol/L Anion Gap 16.8 H (6.8-13.8) mmol/L BUN 46 H D (6-23) mg/dL Creatinine 1.82 H (0.4-1.4) mg/dL Est GFR (Non-Af Amer) 38 L (60-130) mL/min BUN/Creatinine Ratio 25.3 H (9.0-21.6) Random Glucose 191 H (70-110) mg/dL - Exam Constitutional: Present: Alert, Cooperative, No distress ENT Exam: Present: hearing grossly normal Neck: Present: full range of motion, supple Breasts: Present: Exam deferred Respiratory: Present: decreased breath sounds Cardiovascular/Chest: Present: regular rate, rhythm, no chest tenderness Abdomen: Present: soft, nontender, nondistended /Rectal: Present: Exam deferred Extremity: Present: non-tender, normal inspection Skin Exam: Present: warm/dry, no cyanosis, pallor Assessment/Plan Plan Narrative: UTI - history of mental status changes when UTI present - mental status improving - cefepime 1 gm q 12 hours - Day #3 - urine culture grew pseudomonas, sensitive to cefepime and zosyn. - continue cefepime until pt worsens clinically, then will switch to zosyn. - also with left CVA tenderness --> possible complicated UTI, rule out pylonephritis. - renal US shows: no evidence for obstructive uropathy or renal mass, small left sided parapelvic cyst and incidental right hepatic cyst. - has history of recurrent UTI - probiotics ordered. - recheck labs in am. COPD exac. - respiratory status improving significantly. - incentive spirometer q 2 hours - Duonebs QID - Antibiotics: - Cefepime 1 gm iv q 12 hours - Day #3 - Azithromycin 500 mg iv q 24 hours x 5 doses - Day #3 - check O2 sats with vital signs q 4 hours - sputum culture ordered and pending. - daily weight / strict I&Os - vital signs q 4 hours weakness - likely secondary to infection / deconditioning - consult PT/OT AMS - likely secondary to UTI, as this has happened multiple times in the past. - monitor mental status closely, continue IV abx to treat infection - family does not want any haldol given for agitation but is okay with ativan as needed - mentation improving. discharge planning issues - patient having significant issues with ADLs at home, will likely need SNF at d/c - currently at SNF, family would like pt to go to same facility Chronic respiratory failure - chronic use of 2L O2 at hs. Chronic diastolic heart failure / pulmonary HTN - lasix 20 mg given iv x1 05/31/17 - cautious use of IV fluids as patient has a tendency to fluid overload. - strict I&Os - daily weights - no overt acute CHF anemia of chronic disease - hgb stable. CKD, stage 3 - baseline creatinine 1.4 - 1.7 - creatinine currently stable. Code status: Full code with restrictions VTE: lovenox GI proph: protonix po. - Problems/Diagnosis (1) UTI (urinary tract infection) Problem: Acute Qualifiers: Urinary tract infection type: site unspecified Hematuria presence: without hematuria Qualified Code(s): N39.0 - Urinary tract infection, site not specified (2) Weakness Problem: Acute (3) Altered mental status Problem: Acute Qualifiers: Altered mental status type: disorientation Qualified Code(s): R41.0 - Disorientation, unspecified (4) COPD (chronic obstructive pulmonary disease) Problem: Acute Qualifiers: COPD type: COPD with acute exacerbation Qualified Code(s): J44.1 - Chronic obstructive pulmonary disease with (acute) exacerbation (5) Respiratory failure, chronic Problem: Chronic Qualifiers: Respiratory failure complication: unspecified whether with hypoxia or hypercapnia Qualified Code(s): J96.10 - Chronic respiratory failure, unspecified whether with hypoxia or hypercapnia (6) Anemia of chronic disease Problem: Chronic (7) Chronic diastolic (congestive) heart failure Problem: Chronic (8) HTN (hypertension) Problem: Chronic Qualifiers: Hypertension type: essential hypertension Qualified Code(s): I10 - Essential (primary) hypertension (9) Peripheral arterial disease Problem: Chronic (10) Pulmonary hypertension Problem: Chronic (11) Rheumatoid arthritis Problem: Chronic Qualifiers: Rheumatoid arthritis location: multiple sites Rheumatoid factor presence: with rheumatoid factor Qualified Code(s): 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
[2017-06-02] MEDS: ACETAMINOPHEN 325 MG TABLET PO PRN (16:15)
[2017-06-02] MEDS: AZITHROMYCIN 500 MG in DEXTROSE 5 % IN WATER 250 ML IV SCH ×2 (16:19)
[2017-06-02] MEDS: ENOXAPARIN SODIUM 40 MG/0.4 ML SYRG SC SCH (16:19)
[2017-06-03] MEDS: ALBUTEROL SULFATE 2.5 MG/3 ML VIAL.NEB IH SCH ×2 (00:44→06:16)
[2017-06-03] MEDS: LORazepam 2 MG/ML DISP.SYRIN IV PRN ×2 (01:44→18:57)
[2017-06-03] MEDS: MORPHINE SULFATE 2 MG/ML DISP.SYRIN IV PRN ×2 (01:46→18:56)
[2017-06-03] MEDS: NORMAL SALINE 1,000 ML IV PRN (01:49)
[2017-06-03] MEDS: CEFEPIME HCL 1 GM in DEXTROSE 5 % IN WATER 100 ML IV SCH ×2 (05:04)
[2017-06-03] MEDS: METHYLPREDNISOLONE SOD SUCC 80 MG in WATER FOR INJ.,BACTERIOSTATIC 0 ML IV SCH (07:11)
[2017-06-03] MEDS: PANTOPRAZOLE SODIUM 40 MG TABLET.EC PO SCH (07:14)
[2017-06-03] MEDS: HYDROCORTISONE 30 APPL TUBE TP PRN (07:23)
--- NOTE | 2017-06-03 08:21 | PN ---
Progess Note - Interim Narrative: 06/03/17 08:20 Patient has low grade fever (37.7)?. await CBC, BMP. possible discharge to [facility] today. 06/03/17 08:59 WBC is 16. Still think it is Steroids on top of his UTI. Clinically better. Low grade fever is likely due to dehydration. encourage increase oral fluids. still possible discharge if C can do IV cefepime BID.
[2017-06-03 08:41] LABS: Hematocrit 37.6 % (42.0-52.0); Mean Cell Volume 83.4 fl (78-100); Mean Corpuscular Hemoglobin 26.6 pg (27-31); Mean Corpuscular Hgb Conc 31.9 g/dl (32-36); Mean Platelet Volume 10.7 fl (6.0-9.5); Neutrophil # 14.9 K/mm3 (1.3-6.0); Neutrophil % 93.4 % (42-75.0); Platelet Count 212 K/mm3 (150-450); Red Blood Count 4.51 M/mm3 (4.7-6.0)
[2017-06-03 08:52] LABS: Anion Gap 17.6 mmol/L (6.8-13.8); BUN/Creatinine Ratio 25.7 (9.0-21.6); Calcium * 8.9 mg/dL (7.9-10.9); Carbon Dioxide 20.4 mmol/L (24-32.6); Estimated Creat Clear 32.3
[2017-06-03] MEDS: HYDROPHILIC OINTMENT 454 APPL JAR TP SCH ×2 (09:13→20:33)
[2017-06-03] MEDS: SACCHAROMYCES BOULARDII 250 MG CAPSULE PO SCH ×2 (09:14→20:29)
[2017-06-03] MEDS: POTASSIUM CHLORIDE 20 MEQ TABLET.SA PO SCH (09:14)
[2017-06-03] MEDS: FUROSEMIDE 40 MG TABLET PO SCH (09:15)
[2017-06-03] MEDS: LEFLUNOMIDE 20 MG TABLET PO SCH (09:16)
[2017-06-03] MEDS: TERBINAFINE HCL 250 MG TABLET PO SCH (09:16)
[2017-06-03] MEDS: amLODIPine BESYLATE 10 MG TABLET PO SCH (09:18)
[2017-06-03] MEDS: MUPIROCIN 22 APPL TUBE TP SCH ×3 (09:19→17:00)
[2017-06-03] MEDS: 0.5 NORMAL SALINE 1,000 ML IV PRN ×2 (10:07→16:58)
--- NOTE | 2017-06-03 12:57 | PN ---
Subjective - Date and Time Seen Date: 06/03/17 Time: 12:46 Subjective Narrative: 06/03/17 08:20 Patient has low grade fever (37.7)?. await CBC, BMP. possible discharge to [facility] today. 06/03/17 08:59 WBC is 16. Still think it is Steroids on top of his UTI. Low grade fever is likely due to dehydration but cannot rule out that his current antibiotic is not doing it. . encourage increase oral fluids. The [facility] most likely cannot take him with Cefepime BID. Will change his IV antibiotics then to Zosyn. IV steroids discontinued. Objective - Review of Systems Generalized/Overall Review: Reports: Fever. Denies: Chills EENTM: Reports: No Symptoms Reported Respiratory: Denies: Cough, Shortness of Breath Cardiac: Denies: Chest Pain, Edema, Palpitations Abdominal: Denies: Nausea, Vomiting Genitourinary Symptoms: Denies: Itching, Urgency Musculoskeletal Complaints: Reports: Joint Pain Neurological: Reports: Other - confused - Vitals Vitals: Last Vital Signs Temp 37.2 C 06/03/17 11:00 Pulse 92 06/03/17 11:00 Resp 20 06/03/17 11:00 BP 160/89 06/03/17 11:00 Pulse Ox 92 06/03/17 11:00 - Abnormal Lab Findings Abnormal Lab Findings: Abnormal Lab Results 06/03/17 06/03/17 Range/Units 08:19 08:19 WBC 16.0 H (4.0-10.5) K/mm3 RBC 4.51 L (4.7-6.0) M/mm3 Hgb 12.0 L (13.5-18.0) gm/dL Hct 37.6 L (42.0-52.0) % MCH 26.6 L (27-31) pg MCHC 31.9 L (32-36) g/dl RDW 17.0 H (11.5-14.0) % MPV 10.7 H (6.0-9.5) fl Immature Gran % (Auto) 2.00 H (0.001-0.429) % Immature Gran # (Auto) 0.32 H (0.000-0.0310) K/mm3 Neutrophils % 93.4 H (42-75.0) % Lymphocytes % 1.7 L (20-51) % Neutrophils # 14.9 H (1.3-6.0) K/mm3 Lymphocytes # 0.3 L (1.5-3.5) k/mm3 Sodium 145 H (132-142) mmol/L Plasma Sodium 146 H (130-142) mmol/L Chloride 111 H (97-106) mmol/L Carbon Dioxide 20.4 L (24-32.6) mmol/L Anion Gap 17.6 H (6.8-13.8) mmol/L BUN 46 H (6-23) mg/dL Creatinine 1.79 H (0.4-1.4) mg/dL Est GFR (Non-Af Amer) 39 L (60-130) mL/min BUN/Creatinine Ratio 25.7 H (9.0-21.6) Random Glucose 169 H (70-110) mg/dL - Exam Constitutional: Present: Alert - AAO x 2, Elderly ENT Exam: Present: hard of hearing Neck: Present: supple Respiratory: Present: decreased breath sounds, No rales, No wheezing Cardiovascular/Chest: Present: regular rate, rhythm, no JVD, systolic murmur Abdomen: Present: Normal bowel sounds, soft, nontender, nondistended Extremity: Present: no calf tenderness, pedal edema Assessment/Plan - Problems/Diagnosis (1) UTI (urinary tract infection) Problem: Acute Qualifiers: Urinary tract infection type: site unspecified Hematuria presence: without hematuria Qualified Code(s): N39.0 - Urinary tract infection, site not specified Narrative: peudomonas. Change IV antibiotics to IV Zosyn as it has better JOSE . Although his leukocytosis and low grade fever coubd be due to his steroids and mild dehydration, it couls also be due still to his UTI. (2) Respiratory failure, chronic Problem: Chronic Qualifiers: Respiratory failure complication: unspecified whether with hypoxia or hypercapnia Qualified Code(s): J96.10 - Chronic respiratory failure, unspecified whether with hypoxia or hypercapnia (3) Fall Problem: Acute (4) Rib fracture Problem: Acute (5) Weakness Problem: Acute (6) Altered mental status Problem: Acute Qualifiers: Altered mental status type: disorientation Qualified Code(s): R41.0 - Disorientation, unspecified Narrative: likely dementia (7) COPD (chronic obstructive pulmonary disease) Problem: Acute Qualifiers: COPD type: COPD with acute exacerbation Qualified Code(s): J44.1 - Chronic obstructive pulmonary disease with (acute) exacerbation (8) Dementia Problem: Chronic Qualifiers: Dementia type: Alzheimer's disease Alzheimer's disease onset: late-onset Dementia behavioral disturbance: without behavioral disturbance Qualified Code (s): G30.1 - Alzheimer's disease with late onset; F02.80 - Dementia in other diseases classified elsewhere without behavioral disturbance
[2017-06-03] MEDS: ALBUTEROL SULFATE/IPRATROPIUM 3 ML NEBU IH PRN (13:04)
[2017-06-03] MEDS: ALBUTEROL SULFATE 2.5 MG/0.5 ML VIAL.NEB IH SCH ×2 (13:07→18:13)
[2017-06-03] MEDS: PIPERACILLIN SODIUM/TAZOBACTAM 3.375 GM in DEXTROSE 5 % IN WATER 100 ML IV SCH ×4 (13:38→20:27)
[2017-06-03] MEDS: ENOXAPARIN SODIUM 40 MG/0.4 ML SYRG SC SCH (17:02)
[2017-06-03] MEDS: AZITHROMYCIN 500 MG in DEXTROSE 5 % IN WATER 250 ML IV SCH ×2 (17:07)
[2017-06-04] MEDS: ALBUTEROL SULFATE 2.5 MG/0.5 ML VIAL.NEB IH SCH ×4 (00:27→18:10)
[2017-06-04] MEDS: 0.5 NORMAL SALINE 1,000 ML IV PRN ×2 (00:49→07:40)
[2017-06-04] MEDS: LORazepam 2 MG/ML DISP.SYRIN IV PRN (03:37)
[2017-06-04] MEDS: MORPHINE SULFATE 2 MG/ML DISP.SYRIN IV PRN (03:38)
[2017-06-04] MEDS: PIPERACILLIN SODIUM/TAZOBACTAM 3.375 GM in DEXTROSE 5 % IN WATER 100 ML IV SCH ×6 (04:57→21:09)
[2017-06-04 05:11] LABS: Hematocrit 33.3 % (42.0-52.0); Hemoglobin 10.7 gm/dL (13.5-18.0); Mean Cell Volume 82.2 fl (78-100); Mean Corpuscular Hemoglobin 26.4 pg (27-31); Mean Corpuscular Hgb Conc 32.1 g/dl (32-36); Mean Platelet Volume 10.1 fl (6.0-9.5); Neutrophil % 84.3 % (42-75.0); Platelet Count 175 K/mm3 (150-450); Red Blood Count 4.05 M/mm3 (4.7-6.0); White Blood Count 11.8 K/mm3 (4.0-10.5)
[2017-06-04 05:29] LABS: Anion Gap 15.2 mmol/L (6.8-13.8); BUN/Creatinine Ratio 23.6 (9.0-21.6); Calcium * 7.9 mg/dL (7.9-10.9); Carbon Dioxide 22.5 mmol/L (24-32.6); Estimated Creat Clear 29.6; Potassium 3.7 mmol/L (3.4-4.6)
[2017-06-04] MEDS: PANTOPRAZOLE SODIUM 40 MG TABLET.EC PO SCH (07:32)
--- NOTE | 2017-06-04 08:16 | PN ---
Subjective - Date and Time Seen Date: 06/04/17 Time: 08:14 Subjective Narrative: c/o significant pain medication. no asking for oral norco pills. pain better with iv morphine. denies dyspnea. Objective - Review of Systems Generalized/Overall Review: Reports: No Symptoms Reported EENTM: Reports: No Symptoms Reported Respiratory: Reports: No Symptoms Reported Cardiac: Reports: No Symptoms Reported Abdominal: Reports: No Symptoms Reported Genitourinary Symptoms: Reports: No Symptoms Reported Musculoskeletal Complaints: Reports: Joint Pain, Muscle Pain Neurological: Reports: No Symptoms Reported Skin: Reports: No Symptoms Reported Endocrine: Reports: No Symptoms Reported Misc: All systems neg except as marked - Vitals Vitals: Last Vital Signs Temp 36.6 C 06/04/17 03:00 Pulse 75 06/04/17 06:26 Resp 20 06/04/17 06:26 BP 160/72 06/04/17 03:00 Pulse Ox 100 06/04/17 06:16 - Abnormal Lab Findings Abnormal Lab Findings: Abnormal Lab Results 06/03/17 06/03/17 06/04/17 Range/Units 08:19 08:19 05:04 WBC 16.0 H 11.8 H D (4.0-10.5) K/mm3 RBC 4.51 L 4.05 L (4.7-6.0) M/mm3 Hgb 12.0 L 10.7 L (13.5-18.0) gm/dL Hct 37.6 L 33.3 L (42.0-52.0) % MCH 26.6 L 26.4 L (27-31) pg MCHC 31.9 L (32-36) g/dl RDW 17.0 H 17.0 H (11.5-14.0) % MPV 10.7 H 10.1 H (6.0-9.5) fl Immature Gran % (Auto) 2.00 H 1.80 H (0.001-0.429) % Immature Gran # (Auto) 0.32 H 0.21 H (0.000-0.0310) K/mm3 Neutrophils % 93.4 H 84.3 H (42-75.0) % Lymphocytes % 1.7 L 5.7 L (20-51) % Neutrophils # 14.9 H 10.0 H (1.3-6.0) K/mm3 Lymphocytes # 0.3 L 0.7 L (1.5-3.5) k/mm3 Sodium 145 H (132-142) mmol/L Plasma Sodium 146 H (130-142) mmol/L Chloride 111 H (97-106) mmol/L Carbon Dioxide 20.4 L (24-32.6) mmol/L Anion Gap 17.6 H (6.8-13.8) mmol/L BUN 46 H (6-23) mg/dL Creatinine 1.79 H (0.4-1.4) mg/dL Est GFR (Non-Af Amer) 39 L (60-130) mL/min BUN/Creatinine Ratio 25.7 H (9.0-21.6) Random Glucose 169 H (70-110) mg/dL B-Natriuretic Peptide (5-650) pg/mL 06/04/17 06/04/17 Range/Units 05:04 06:00 WBC (4.0-10.5) K/mm3 RBC (4.7-6.0) M/mm3 Hgb (13.5-18.0) gm/dL Hct (42.0-52.0) % MCH (27-31) pg MCHC (32-36) g/dl RDW (11.5-14.0) % MPV (6.0-9.5) fl Immature Gran % (Auto) (0.001-0.429) % Immature Gran # (Auto) (0.000-0.0310) K/mm3 Neutrophils % (42-75.0) % Lymphocytes % (20-51) % Neutrophils # (1.3-6.0) K/mm3 Lymphocytes # (1.5-3.5) k/mm3 Sodium 144 H (132-142) mmol/L Plasma Sodium 144 H (130-142) mmol/L Chloride 110 H (97-106) mmol/L Carbon Dioxide 22.5 L (24-32.6) mmol/L Anion Gap 15.2 H (6.8-13.8) mmol/L BUN 46 H (6-23) mg/dL Creatinine 1.95 H (0.4-1.4) mg/dL Est GFR (Non-Af Amer) 35 L (60-130) mL/min BUN/Creatinine Ratio 23.6 H (9.0-21.6) Random Glucose (70-110) mg/dL B-Natriuretic Peptide 848 H (5-650) pg/mL - Exam Constitutional: Present: Alert, Cooperative, Mild distress ENT Exam: Present: hearing grossly normal Neck: Present: full range of motion, supple Breasts: Present: Exam deferred Respiratory: Present: normal breath sounds, no respiratory distress, other - chest tender to palpation, left lateral side Cardiovascular/Chest: Present: normal peripheral pulses, regular rate, rhythm Abdomen: Present: soft, nontender, nondistended Extremity: Present: non-tender, normal inspection Skin Exam: Present: warm/dry, no cyanosis, pallor Assessment/Plan Plan Narrative: UTI - history of mental status changes when UTI present - mental status improving - wbc started to increase on cefepime (3 days worth of abx), therefore it was discontinued - zosyn started 06/03/17 - currently day #2 - urine culture grew pseudomonas, sensitive to zosyn. - also with left CVA tenderness --> possible complicated UTI, rule out pylonephritis. (on admission) - renal US shows: no evidence for obstructive uropathy or renal mass, small left sided parapelvic cyst and incidental right hepatic cyst. - has history of recurrent UTI - probiotics ordered. - recheck labs in am. COPD exac. - respiratory status improving significantly. - incentive spirometer q 2 hours - Duonebs QID - Antibiotics: - received 3 days of cefepime before it was discontinued. - zosyn - day #2 - Azithromycin 500 mg iv q 24 hours x 5 doses - Day #5 - IV steroids d/c 06/03/17 - check O2 sats with vital signs q 4 hours - daily weight / strict I&Os - vital signs q 4 hours weakness - likely secondary to infection / deconditioning - PT/OT following AMS - likely secondary to UTI, as this has happened multiple times in the past. - monitor mental status closely, continue IV abx to treat infection - family does not want any haldol given for agitation but is okay with ativan as needed - mentation improving. discharge planning issues - patient having significant issues with ADLs at home, will likely need SNF at d/c - currently at SNF, family would like pt to go to same facility Chronic respiratory failure - chronic use of 2L O2 at hs. Chronic diastolic heart failure / pulmonary HTN - cautious use of IV fluids as patient has a tendency to fluid overload. - strict I&Os - daily weights - no overt acute CHF anemia of chronic disease - hgb stable. CKD, stage 3 - baseline creatinine 1.4 - 1.7 - creatinine currently stable. Code status: Full code with restrictions VTE: lovenox GI proph: protonix po. - Problems/Diagnosis (1) UTI (urinary tract infection) Problem: Acute Qualifiers: Urinary tract infection type: site unspecified Hematuria presence: without hematuria Qualified Code(s): N39.0 - Urinary tract infection, site not specified (2) Weakness Problem: Acute (3) Altered mental status Problem: Acute Qualifiers: Altered mental status type: disorientation Qualified Code(s): R41.0 - Disorientation, unspecified (4) COPD (chronic obstructive pulmonary disease) Problem: Acute Qualifiers: COPD type: COPD with acute exacerbation Qualified Code(s): J44.1 - Chronic obstructive pulmonary disease with (acute) exacerbation (5) Respiratory failure, chronic Problem: Chronic Qualifiers: Respiratory failure complication: unspecified whether with hypoxia or hypercapnia Qualified Code(s): J96.10 - Chronic respiratory failure, unspecified whether with hypoxia or hypercapnia (6) Anemia of chronic disease Problem: Chronic (7) Chronic diastolic (congestive) heart failure Problem: Chronic (8) HTN (hypertension) Problem: Chronic Qualifiers: Hypertension type: essential hypertension Qualified Code(s): I10 - Essential (primary) hypertension (9) Peripheral arterial disease Problem: Chronic (10) Pulmonary hypertension Problem: Chronic (11) Rheumatoid arthritis Problem: Chronic Qualifiers: Rheumatoid arthritis location: multiple sites Rheumatoid factor presence: with rheumatoid factor Qualified Code(s): 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
[2017-06-04] MEDS: amLODIPine BESYLATE 10 MG TABLET PO SCH (08:17)
[2017-06-04] MEDS: SACCHAROMYCES BOULARDII 250 MG CAPSULE PO SCH ×2 (08:17→20:51)
[2017-06-04] MEDS: TERBINAFINE HCL 250 MG TABLET PO SCH (08:17)
[2017-06-04] MEDS: LEFLUNOMIDE 20 MG TABLET PO SCH (08:18)
[2017-06-04] MEDS: POTASSIUM CHLORIDE 20 MEQ TABLET.SA PO SCH (08:18)
[2017-06-04] MEDS: MUPIROCIN 22 APPL TUBE TP SCH ×3 (08:18→16:33)
[2017-06-04] MEDS: FUROSEMIDE 40 MG TABLET PO SCH (08:18)
[2017-06-04] MEDS ORDERED: HYDROcodone/ACETAMINOPHEN 1 EACH TABLET PO SCH (09:00)
[2017-06-04] MEDS: HYDROPHILIC OINTMENT 454 APPL JAR TP SCH ×2 (09:02→21:01)
[2017-06-04] MEDS: LOSARTAN POTASSIUM 50 MG TABLET PO SCH (10:38)
[2017-06-04] MEDS: LORATADINE 10 MG TABLET PO SCH (10:40)
[2017-06-04] MEDS: DEXTROSE 5 % IN WATER 1,000 ML IV PRN ×2 (10:57→21:07)
[2017-06-04] MEDS ORDERED: POTASSIUM CHLORIDE 20 MEQ TABLET.SA PO ONE (12:00)
[2017-06-04] MEDS: ALBUTEROL SULFATE/IPRATROPIUM 3 ML NEBU IH PRN (13:46)
[2017-06-04] MEDS: HYDROcodone/ACETAMINOPHEN 1 EACH TABLET PO PRN (15:58)
[2017-06-04] MEDS: ENOXAPARIN SODIUM 40 MG/0.4 ML SYRG SC SCH (16:33)
[2017-06-04] MEDS: FAMOTIDINE 20 MG TABLET PO SCH (16:35)
[2017-06-04] MEDS ORDERED: BISACODYL 5 MG TABLET.DR PO PRN (16:52)
[2017-06-04] MEDS: PSYLLIUM SEED 1 PACKET PACKET PO SCH (17:19)
[2017-06-04] MEDS: AZITHROMYCIN 500 MG in DEXTROSE 5 % IN WATER 250 ML IV SCH ×2 (17:31)
[2017-06-04] MEDS: SENNOSIDES 8.6 MG TABLET PO SCH (21:08)
[2017-06-04] MEDS: ALPRAZolam 0.25 MG TABLET PO SCH (21:08)
[2017-06-04] MEDS: BISACODYL 5 MG TABLET.DR PO SCH (21:08)
[2017-06-04] MEDS: HYDROcodone/ACETAMINOPHEN 1 EACH TABLET PO SCH (21:08)
[2017-06-05] MEDS: ALBUTEROL SULFATE 2.5 MG/0.5 ML VIAL.NEB IH SCH ×4 (02:32→20:14)
[2017-06-05] MEDS: PIPERACILLIN SODIUM/TAZOBACTAM 3.375 GM in DEXTROSE 5 % IN WATER 100 ML IV SCH ×6 (05:04→20:16)
[2017-06-05 06:19] LABS: Hematocrit 36.9 % (42.0-52.0); Mean Cell Volume 82.4 fl (78-100); Mean Corpuscular Hemoglobin 26.8 pg (27-31); Mean Corpuscular Hgb Conc 32.5 g/dl (32-36); Mean Platelet Volume 9.7 fl (6.0-9.5); Neutrophil # 7.8 K/mm3 (1.3-6.0); Neutrophil % 72.2 % (42-75.0); Platelet Count 179 K/mm3 (150-450); Red Blood Count 4.48 M/mm3 (4.7-6.0); White Blood Count 10.8 K/mm3 (4.0-10.5)
[2017-06-05 06:32] LABS: Anion Gap 12.1 mmol/L (6.8-13.8); BUN/Creatinine Ratio 20.4 (9.0-21.6); Calcium * 8.2 mg/dL (7.9-10.9); Estimated Creat Clear 31.9; Potassium 4.1 mmol/L (3.4-4.6)
[2017-06-05] MEDS: FAMOTIDINE 20 MG TABLET PO SCH ×2 (07:55→17:22)
[2017-06-05] MEDS: PANTOPRAZOLE SODIUM 40 MG TABLET.EC PO SCH (07:57)
[2017-06-05] MEDS: DEXTROSE 5 % IN WATER 1,000 ML IV PRN ×2 (09:13→19:08)
[2017-06-05] MEDS: HYDROPHILIC OINTMENT 454 APPL JAR TP SCH ×2 (09:54→20:17)
[2017-06-05] MEDS: LORATADINE 10 MG TABLET PO SCH (09:55)
[2017-06-05] MEDS: TERBINAFINE HCL 250 MG TABLET PO SCH (09:55)
[2017-06-05] MEDS: LEFLUNOMIDE 20 MG TABLET PO SCH (09:55)
[2017-06-05] MEDS: ALPRAZolam 0.25 MG TABLET PO SCH ×3 (09:55→17:20)
[2017-06-05] MEDS: amLODIPine BESYLATE 10 MG TABLET PO SCH (09:56)
[2017-06-05] MEDS: MUPIROCIN 22 APPL TUBE TP SCH ×3 (09:57→17:18)
[2017-06-05] MEDS: PSYLLIUM SEED 1 PACKET PACKET PO SCH (09:57)
[2017-06-05] MEDS: HYDROcodone/ACETAMINOPHEN 1 EACH TABLET PO SCH ×4 (09:59→20:16)
[2017-06-05] MEDS: LOSARTAN POTASSIUM 50 MG TABLET PO SCH (10:03)
[2017-06-05] MEDS: SACCHAROMYCES BOULARDII 250 MG CAPSULE PO SCH ×2 (10:03→20:16)
[2017-06-05] MEDS: SENNOSIDES 8.6 MG TABLET PO SCH ×2 (10:06→20:16)
--- NOTE | 2017-06-05 11:17 | PN ---
Subjective - Date and Time Seen Date: 06/05/17 Time: 10:22 Subjective Narrative: denies pain, sitting in the chair. states itching is better. Objective - Review of Systems Generalized/Overall Review: Reports: No Symptoms Reported EENTM: Reports: No Symptoms Reported Respiratory: Reports: No Symptoms Reported Cardiac: Reports: No Symptoms Reported Abdominal: Reports: No Symptoms Reported Genitourinary Symptoms: Reports: No Symptoms Reported Musculoskeletal Complaints: Reports: No Symptoms Reported Neurological: Reports: No Symptoms Reported Skin: Reports: No Symptoms Reported Endocrine: Reports: No Symptoms Reported Misc: All systems neg except as marked - Vitals Vitals: Last Vital Signs Temp 36.9 C 06/05/17 02:56 Pulse 95 06/05/17 10:03 Resp 20 06/05/17 07:07 BP 105/84 06/05/17 10:03 Pulse Ox 96 06/05/17 06:57 - Abnormal Lab Findings Abnormal Lab Findings: Abnormal Lab Results 06/05/17 06/05/17 Range/Units 06:15 06:15 WBC 10.8 H (4.0-10.5) K/mm3 RBC 4.48 L (4.7-6.0) M/mm3 Hgb 12.0 L (13.5-18.0) gm/dL Hct 36.9 L (42.0-52.0) % MCH 26.8 L (27-31) pg RDW 17.0 H (11.5-14.0) % MPV 9.7 H (6.0-9.5) fl Immature Gran % (Auto) 4.00 H (0.001-0.429) % Immature Gran # (Auto) 0.43 H (0.000-0.0310) K/mm3 Lymphocytes % 11.0 L (20-51) % Monocytes % 9.2 H (0.0-9) % Neutrophils # 7.8 H (1.3-6.0) K/mm3 Lymphocytes # 1.2 L (1.5-3.5) k/mm3 Chloride 107 H (97-106) mmol/L BUN 37 H (6-23) mg/dL Creatinine 1.81 H (0.4-1.4) mg/dL Est GFR (Non-Af Amer) 38 L (60-130) mL/min - Exam Constitutional: Present: Alert, No distress ENT Exam: Present: hard of hearing Neck: Present: supple Breasts: Present: Exam deferred Respiratory: Present: chest non-tender, normal breath sounds, no respiratory distress Cardiovascular/Chest: Present: regular rate, rhythm, no chest tenderness Abdomen: Present: soft, nontender, nondistended /Rectal: Present: Exam deferred Extremity: Present: non-tender, normal inspection Skin Exam: Present: normal color, warm/dry, no cyanosis Cauti Physician Documentation - Urinary Catheter Management Uretheral (Romero) Urethral Indwelling: No Assessment/Plan Plan Narrative: UTI - history of mental status changes when UTI present - mental status bask at baseline. pleasant. - wbc started to increase on cefepime (3 days worth of abx), therefore it was discontinued - zosyn started 06/03/17 - currently day #3 - urine culture grew pseudomonas, sensitive to zosyn. - also with left CVA tenderness --> possible complicated UTI, rule out pylonephritis. (on admission) - renal US shows: no evidence for obstructive uropathy or renal mass, small left sided parapelvic cyst and incidental right hepatic cyst. - has history of recurrent UTI - probiotics ordered. - recheck labs in am. COPD exac. - respiratory status improving significantly. - incentive spirometer q 2 hours - Duonebs QID - Antibiotics: - received 3 days of cefepime before it was discontinued. - zosyn - day #3 - Azithromycin 500 mg iv q 24 hours x 5 doses - Day #5 (complete) - IV steroids d/c 06/03/17 - check O2 sats with vital signs q 4 hours - daily weight / strict I&Os - vital signs q 4 hours weakness - likely secondary to infection / deconditioning - PT/OT following AMS - likely secondary to UTI, as this has happened multiple times in the past. - monitor mental status closely, continue IV abx to treat infection - family does not want any haldol given for agitation but is okay with ativan as needed - mentation back at baseline, pleasant. discharge planning issues - patient having significant issues with ADLs at home, will likely need SNF at d/c - currently at SNF, family would like pt to go to same facility Chronic respiratory failure - chronic use of 2L O2 at hs. Chronic diastolic heart failure / pulmonary HTN - cautious use of IV fluids as patient has a tendency to fluid overload. - strict I&Os - daily weights - no overt acute CHF anemia of chronic disease - hgb stable. CKD, stage 3 - baseline creatinine 1.4 - 1.7 - creatinine currently stable. rash, unspecified - sees dermatology outpatient - itching improved with claritin and pepcid bid. rib fractures - pain improved with schedule pain medication. Code status: Full code with restrictions VTE: lovenox GI proph: protonix po. - Problems/Diagnosis (1) UTI (urinary tract infection) Problem: Acute Qualifiers: Urinary tract infection type: site unspecified Hematuria presence: without hematuria Qualified Code(s): N39.0 - Urinary tract infection, site not specified (2) Weakness Problem: Acute (3) Altered mental status Problem: Acute Qualifiers: Altered mental status type: disorientation Qualified Code(s): R41.0 - Disorientation, unspecified (4) COPD (chronic obstructive pulmonary disease) Problem: Acute Qualifiers: COPD type: COPD with acute exacerbation Qualified Code(s): J44.1 - Chronic obstructive pulmonary disease with (acute) exacerbation (5) Respiratory failure, chronic Problem: Chronic Qualifiers: Respiratory failure complication: unspecified whether with hypoxia or hypercapnia Qualified Code(s): J96.10 - Chronic respiratory failure, unspecified whether with hypoxia or hypercapnia (6) Anemia of chronic disease Problem: Chronic (7) Chronic diastolic (congestive) heart failure Problem: Chronic (8) HTN (hypertension) Problem: Chronic Qualifiers: Hypertension type: essential hypertension Qualified Code(s): I10 - Essential (primary) hypertension (9) Peripheral arterial disease Problem: Chronic (10) Pulmonary hypertension Problem: Chronic (11) Rheumatoid arthritis Problem: Chronic Qualifiers: Rheumatoid arthritis location: multiple sites Rheumatoid factor presence: with rheumatoid factor Qualified Code(s): 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
[2017-06-05] MEDS: HYDROcodone/ACETAMINOPHEN 1 EACH TABLET PO PRN (12:13)
[2017-06-05] MEDS: ENOXAPARIN SODIUM 40 MG/0.4 ML SYRG SC SCH (17:21)
[2017-06-05] MEDS: BISACODYL 5 MG TABLET.DR PO SCH (20:16)
[2017-06-06] MEDS ORDERED: LORazepam 2 MG/ML DISP.SYRIN IV ONE (01:34)
[2017-06-06] MEDS ORDERED: LORazepam 2 MG/ML DISP.SYRIN ONE (01:39)
[2017-06-06] MEDS: PIPERACILLIN SODIUM/TAZOBACTAM 3.375 GM in DEXTROSE 5 % IN WATER 100 ML IV SCH ×6 (04:50→20:08)
[2017-06-06] MEDS: DEXTROSE 5 % IN WATER 1,000 ML IV PRN ×2 (04:53→15:00)
[2017-06-06 05:50] LABS: Hematocrit 36.5 % (42.0-52.0); Hemoglobin 11.8 gm/dL (13.5-18.0); Mean Cell Volume 83.1 fl (78-100); Mean Corpuscular Hemoglobin 26.9 pg (27-31); Mean Corpuscular Hgb Conc 32.3 g/dl (32-36); Mean Platelet Volume 10.2 fl (6.0-9.5); Neutrophil # 7.1 K/mm3 (1.3-6.0); Neutrophil % 69.9 % (42-75.0); Platelet Count 176 K/mm3 (150-450); Red Blood Count 4.39 M/mm3 (4.7-6.0); Red Cell Distribution Width 16.8 % (11.5-14.0); White Blood Count 10.1 K/mm3 (4.0-10.5)
[2017-06-06 06:02] LABS: Anion Gap 12.2 mmol/L (6.8-13.8); BUN/Creatinine Ratio 15.2 (9.0-21.6); Carbon Dioxide 27.6 mmol/L (24-32.6); Estimated Creat Clear 32.4; Potassium 3.8 mmol/L (3.4-4.6)
[2017-06-06] MEDS: ALBUTEROL SULFATE 2.5 MG/0.5 ML VIAL.NEB IH SCH ×3 (06:27→18:02)
[2017-06-06] MEDS: PANTOPRAZOLE SODIUM 40 MG TABLET.EC PO SCH ×2 (06:30→09:01)
[2017-06-06] MEDS: FAMOTIDINE 20 MG TABLET PO SCH ×3 (06:30→16:18)
[2017-06-06] MEDS: LEFLUNOMIDE 20 MG TABLET PO SCH (08:59)
[2017-06-06] MEDS: MUPIROCIN 22 APPL TUBE TP SCH ×3 (08:59→16:18)
[2017-06-06] MEDS: PSYLLIUM SEED 1 PACKET PACKET PO SCH (08:59)
[2017-06-06] MEDS: HYDROPHILIC OINTMENT 454 APPL JAR TP SCH ×2 (08:59→20:08)
[2017-06-06] MEDS: LOSARTAN POTASSIUM 50 MG TABLET PO SCH (08:59)
[2017-06-06] MEDS: LORATADINE 10 MG TABLET PO SCH (08:59)
[2017-06-06] MEDS: TERBINAFINE HCL 250 MG TABLET PO SCH (08:59)
[2017-06-06] MEDS: SACCHAROMYCES BOULARDII 250 MG CAPSULE PO SCH ×2 (08:59→20:08)
[2017-06-06] MEDS: amLODIPine BESYLATE 10 MG TABLET PO SCH (09:00)
[2017-06-06] MEDS: SENNOSIDES 8.6 MG TABLET PO SCH ×2 (09:00→20:08)
[2017-06-06] MEDS: HYDROcodone/ACETAMINOPHEN 1 EACH TABLET PO SCH ×4 (09:00→20:07)
[2017-06-06] MEDS: ALPRAZolam 0.25 MG TABLET PO SCH ×4 (09:00→20:07)
--- NOTE | 2017-06-06 11:57 | PN ---
Subjective - Date and Time Seen Date: 06/06/17 Time: 11:57 Subjective Narrative: denies pain. pleasant with me during conversation. no needs. Objective - Review of Systems Generalized/Overall Review: Reports: No Symptoms Reported EENTM: Reports: No Symptoms Reported Respiratory: Reports: No Symptoms Reported Cardiac: Reports: No Symptoms Reported Abdominal: Reports: No Symptoms Reported Genitourinary Symptoms: Reports: No Symptoms Reported Musculoskeletal Complaints: Reports: No Symptoms Reported Neurological: Reports: No Symptoms Reported Skin: Reports: No Symptoms Reported Endocrine: Reports: No Symptoms Reported Misc: All systems neg except as marked - Vitals Vitals: Last Vital Signs Temp 36.9 C 06/06/17 07:49 Pulse 79 06/06/17 09:00 Resp 18 06/06/17 07:49 BP 110/71 06/06/17 09:00 Pulse Ox 95 06/06/17 07:49 - Abnormal Lab Findings Abnormal Lab Findings: Abnormal Lab Results 06/06/17 06/06/17 Range/Units 05:46 05:46 RBC 4.39 L (4.7-6.0) M/mm3 Hgb 11.8 L (13.5-18.0) gm/dL Hct 36.5 L (42.0-52.0) % MCH 26.9 L (27-31) pg RDW 16.8 H (11.5-14.0) % MPV 10.2 H (6.0-9.5) fl Immature Gran % (Auto) 4.10 H (0.001-0.429) % Immature Gran # (Auto) 0.41 H (0.000-0.0310) K/mm3 Lymphocytes % 11.3 L (20-51) % Monocytes % 9.7 H (0.0-9) % Eosinophils % 4.5 H (0.0-3.0) % Neutrophils # 7.1 H (1.3-6.0) K/mm3 Lymphocytes # 1.1 L (1.5-3.5) k/mm3 Sodium 143 H (132-142) mmol/L Plasma Sodium 143 H (130-142) mmol/L Chloride 107 H (97-106) mmol/L BUN 27 H (6-23) mg/dL Creatinine 1.78 H (0.4-1.4) mg/dL Est GFR (Non-Af Amer) 39 L (60-130) mL/min - Exam Constitutional: Present: Cooperative, No distress, Elderly ENT Exam: Present: hard of hearing Neck: Present: supple Breasts: Present: Exam deferred Respiratory: Present: normal breath sounds, no respiratory distress, other - left lateral ribs tender to palpation Cardiovascular/Chest: Present: normal peripheral pulses, regular rate, rhythm, no edema Abdomen: Present: soft, nontender, nondistended /Rectal: Present: Exam deferred Extremity: Present: non-tender, normal inspection Skin Exam: Present: normal color, warm/dry, no cyanosis Cauti Physician Documentation - Urinary Catheter Management Uretheral (Romero) Urethral Indwelling: No Assessment/Plan Plan Narrative: UTI - history of mental status changes when UTI present - mental status bask at baseline. pleasant. - wbc started to increase on cefepime (3 days worth of abx), then it was discontinued - zosyn started 06/03/17 - currently day #4 - urine culture grew pseudomonas, sensitive to zosyn. - also with left CVA tenderness --> possible complicated UTI, rule out pylonephritis. (on admission) - renal US shows: no evidence for obstructive uropathy or renal mass, small left sided parapelvic cyst and incidental right hepatic cyst. - has history of recurrent UTI - probiotics ordered. - recheck labs in am. COPD exac. - respiratory status improving significantly. - incentive spirometer q 2 hours - Duonebs QID - Antibiotics: - received 3 days of cefepime before it was discontinued. - zosyn - day #4 - Azithromycin 500 mg iv q 24 hours x 5 doses - Day #5 (complete) - IV steroids d/c 06/03/17 - check O2 sats with vital signs q 4 hours - daily weight / strict I&Os - vital signs q 4 hours weakness - likely secondary to infection / deconditioning - PT/OT following AMS - likely secondary to UTI, as this has happened multiple times in the past. - monitor mental status closely, continue IV abx to treat infection - family does not want any haldol given for agitation but is okay with ativan as needed - mentation back at baseline, pleasant. discharge planning issues - patient having significant issues with ADLs at home, will likely need SNF at d/c - currently at SNF, family would like pt to go to same facility Chronic respiratory failure - chronic use of 2L O2 at hs. Chronic diastolic heart failure / pulmonary HTN - cautious use of IV fluids as patient has a tendency to fluid overload. - strict I&Os - daily weights - no overt acute CHF anemia of chronic disease - hgb stable. CKD, stage 3 - baseline creatinine 1.4 - 1.7 - creatinine currently stable. rash, unspecified - sees dermatology outpatient - itching improved with claritin and pepcid bid. rib fractures - pain improved with schedule pain medication. Code status: Full code with restrictions VTE: lovenox GI proph: protonix po. - Problems/Diagnosis (1) UTI (urinary tract infection) Problem: Acute Qualifiers: Urinary tract infection type: site unspecified Hematuria presence: without hematuria Qualified Code(s): N39.0 - Urinary tract infection, site not specified (2) Weakness Problem: Acute (3) Altered mental status Problem: Acute Qualifiers: Altered mental status type: disorientation Qualified Code(s): R41.0 - Disorientation, unspecified (4) COPD (chronic obstructive pulmonary disease) Problem: Acute Qualifiers: COPD type: COPD with acute exacerbation Qualified Code(s): J44.1 - Chronic obstructive pulmonary disease with (acute) exacerbation (5) Respiratory failure, chronic Problem: Chronic Qualifiers: Respiratory failure complication: unspecified whether with hypoxia or hypercapnia Qualified Code(s): J96.10 - Chronic respiratory failure, unspecified whether with hypoxia or hypercapnia (6) Anemia of chronic disease Problem: Chronic (7) Chronic diastolic (congestive) heart failure Problem: Chronic (8) HTN (hypertension) Problem: Chronic Qualifiers: Hypertension type: essential hypertension Qualified Code(s): I10 - Essential (primary) hypertension (9) Peripheral arterial disease Problem: Chronic (10) Pulmonary hypertension Problem: Chronic (11) Rheumatoid arthritis Problem: Chronic Qualifiers: Rheumatoid arthritis location: multiple sites Rheumatoid factor presence: with rheumatoid factor Qualified Code(s): 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
[2017-06-06] MEDS: ENOXAPARIN SODIUM 40 MG/0.4 ML SYRG SC SCH (16:18)
[2017-06-06] MEDS: BISACODYL 5 MG TABLET.DR PO SCH (20:08)
[2017-06-07] MEDS: DEXTROSE 5 % IN WATER 1,000 ML IV PRN (00:13)
[2017-06-07] MEDS: PIPERACILLIN SODIUM/TAZOBACTAM 3.375 GM in DEXTROSE 5 % IN WATER 100 ML IV SCH ×2 (05:34)
[2017-06-07] MEDS: ALBUTEROL SULFATE 2.5 MG/0.5 ML VIAL.NEB IH SCH ×3 (06:15→19:20)
[2017-06-07] MEDS: PANTOPRAZOLE SODIUM 40 MG TABLET.EC PO SCH (07:11)
[2017-06-07] MEDS: FAMOTIDINE 20 MG TABLET PO SCH ×2 (07:11→16:59)
--- NOTE | 2017-06-07 07:53 | DS ---
(1) UTI (urinary tract infection) Problem: Resolved Qualifiers: Urinary tract infection type: site unspecified Hematuria presence: without hematuria Qualified Code(s): N39.0 - Urinary tract infection, site not specified (2) Respiratory failure, chronic Diagnosis(s): acute exacerbation , resolved. Problem: Resolved Qualifiers: Respiratory failure complication: unspecified whether with hypoxia or hypercapnia Qualified Code(s): J96.10 - Chronic respiratory failure, unspecified whether with hypoxia or hypercapnia (3) Fall Problem: Acute (4) Rib fracture Problem: Acute (5) Weakness Problem: Acute (6) Altered mental status Diagnosis(s): improved. baseline dementia. Problem: Acute Qualifiers: Altered mental status type: disorientation Qualified Code(s): R41.0 - Disorientation, unspecified (7) Dementia Problem: Chronic Qualifiers: Dementia type: Alzheimer's disease Alzheimer's disease onset: late-onset Dementia behavioral disturbance: without behavioral disturbance Qualified Code (s): G30.1 - Alzheimer's disease with late onset; F02.80 - Dementia in other diseases classified elsewhere without behavioral disturbance Description of Stay: Emir Robbins, is an 81 year old male with a PMH of COPD, RA, CAD, HTN, CKD , and AAA who presented to the ER on 05/31/2017 with c/o increased confusion, rib pain, weakness, dyspnea and inability to perform ADLs at home. pt with chronic respiratory failure - uses 2L O2 at hs. was seen in the ER on 05/28/17 after a fall at home and diagnosed with 2 mildly displaced rib fractures. ER eval revealed elevated wbc at 11.3 with 84.1% neutrophils. hgb/hct at 12.9/ 39.8. mild hypernatremia with Na+ at 146. creatinine at 1.54 (baseline at 1.2- 1.7). EKG showing NSR with HR 63 and non-specific st-t wave changes. chest xray showing no acute cardiopulmonary changes. UA positive for >50 wbc, +2 bacteria and no RBCs, unable to obtain full UA due to purulent nature of UA. lung sounds in ER wheezing, improved after 1 duoneb breathing treatment. patient with significant increase in confusion but has a history of decline in mental status with urinary tract infections. patient was previously treated for UTI on 7/6/17 outpatient with cipro po bid x7 days. urine culture grew pseudomonas. family was considering SNF placement as he has become unable to do ADLs at home. Patient was admitted for UTI r/o pylonephritis, weakness, COPD exac and discharge planning issues. Je was started on Cefepime, IV soulmedrol, breathing treatments. His culture grew pseudomonas. His WBC trended down but started to go up again and so his IV antibiotics was changed to IV Zosyn. He improved clinically and his WBC is back to normal and his acute COPD exacerbation has resolved. His mentation has improved and is back to his baseline dementia. He is stable to be discharged today to the [place]. ADDENDUM: His Discharged is cancelled due to an episode of behavioral change. Will refer him to Dr. Victor, Psychiatry. This will serve as my Progress Notes for the day. Procedures Performed: none Discharge Disposition: [facility] Disposition: [facility] Condition: Stable Discharge Activity: Activity as tolerated Discharge Diet: General/regular food Discharge Level of Care:: SNF - Halfway Halfway Therapy: Physicial Therapy, Occupation Therapy Referrals: Mauricio Boyce MD [Primary Care Provider] - Additional Patient Instructions (free text): [facility] SNF at discharge. Will follow up patient in [place] . Prescriptions (Any new or edited meds): Albuterol Sulfate [Albuterol Sulfate 2.5 MG/3 ML] 2.5 mg IH Q6H PRN #7 vial.neb PRN Reason: Shortness Of Breath/Wheezing Albuterol Sulfate/Ipratropium [Duoneb 2.5-0.5MG/3ML Soln] 3 ml IH BID #7 nebu ALPRAZolam [Xanax] 0.25 mg PO 0900,1500,2100 #30 tablet amLODIPine BESYLATE [Norvasc] 10 mg PO DAILY #30 tablet HYDROcodone/ACETAMINOPHEN [Clear 5-325] 1 each PO QID #30 tablet Losartan Potassium [Cozaar] 50 mg PO DAILY #30 tablet Pantoprazole Sodium [Protonix] 40 mg PO DAILY@0700 #30 tablet. Psylljudi Husk (with Sugar) [Metamucil] 1 each PO DAILY #30 packet Sennosides [Senokot] 8.6 mg PO BID #60 tablet Complete Home Medications List: Complete Home Medication List: Acetaminophen [Tylenol] 650 mg PO Q4H PRN 05/31/17 Furosemide [Lasix] 40 mg PO DAILY PRN 05/31/17 Potassium Chloride [Klor-Con M20] 20 meq PO DAILY 05/31/17 ALPRAZolam [Xanax] 0.25 mg PO 0900,1500,2100 #30 tablet 06/07/17 Albuterol Sulfate [Albuterol Sulfate 2.5 MG/3 ML] 2.5 mg IH Q6H PRN #7 vial.neb 06/07/17 Albuterol Sulfate/Ipratropium [Duoneb 2.5-0.5MG/3ML Soln] 3 ml IH BID #7 nebu HYDROcodone/ACETAMINOPHEN [Clear 5-325] 1 each PO QID #30 tablet 06/07/17 Hydrophilic Ointment [Aquaphilic Ointment] 1 appl TP BID jar 06/07/17 Leflunomide [Arava] 20 mg PO DAILY tablet 06/07/17 Losartan Potassium [Cozaar] 50 mg PO DAILY #30 tablet 06/07/17 Pantoprazole Sodium [Protonix] 40 mg PO DAILY@0700 #30 tablet. 06/07/17 Psyllium Husk (with Sugar) [Metamucil] 1 each PO DAILY #30 packet 06/07/17 Sennosides [Senokot] 8.6 mg PO BID #60 tablet 06/07/17 amLODIPine BESYLATE [Norvasc] 10 mg PO DAILY #30 tablet 06/07/17
--- NOTE | 2017-06-07 08:04 | PN ---
Progess Note - Interim Narrative: 06/07/17 08:03 For d/c today - [facility] vs [facility].
[2017-06-07] MEDS: HYDROPHILIC OINTMENT 454 APPL JAR TP SCH ×2 (08:45→22:03)
[2017-06-07] MEDS: TERBINAFINE HCL 250 MG TABLET PO SCH (08:45)
[2017-06-07] MEDS: LEFLUNOMIDE 20 MG TABLET PO SCH (08:45)
[2017-06-07] MEDS: MUPIROCIN 22 APPL TUBE TP SCH ×3 (08:45→17:00)
[2017-06-07] MEDS: PSYLLIUM SEED 1 PACKET PACKET PO SCH (08:46)
[2017-06-07] MEDS: LOSARTAN POTASSIUM 50 MG TABLET PO SCH (08:46)
[2017-06-07] MEDS: SACCHAROMYCES BOULARDII 250 MG CAPSULE PO SCH ×2 (08:46→22:04)
[2017-06-07] MEDS: LORATADINE 10 MG TABLET PO SCH (08:46)
[2017-06-07] MEDS: HYDROcodone/ACETAMINOPHEN 1 EACH TABLET PO SCH ×4 (08:46→21:51)
[2017-06-07] MEDS: SENNOSIDES 8.6 MG TABLET PO SCH ×2 (08:46→22:04)
[2017-06-07] MEDS: ALPRAZolam 0.25 MG TABLET PO SCH (08:46)
[2017-06-07] MEDS: amLODIPine BESYLATE 10 MG TABLET PO SCH (08:46)
[2017-06-07] MEDS: ENOXAPARIN SODIUM 40 MG/0.4 ML SYRG SC SCH (16:59)
--- NOTE | 2017-06-07 19:43 | CONS ---
- Reason for consultation (2) Altered mental status Date of Service: 06/07/17 (3) aggression and agitation Date of Service: 06/07/17 HPI - General Date of Service: 06/07/17 Narrative: IDENTIFYING INFORMATION Emir Robbins is an 81 year old retired male from [place], [place] admitted here on the of this month under Dr. Mauricio Boyce' services for evaluation and treatment of fractured ribs resulting from an accidental fall unto his 's hip while they were sitting in their porch. I was called in today for Psychiatric consultation because of the following new developments today: 1-While attempting to get out of his chair in an effort to change his shirt, he accidentally tripped the alarm which got three of our nursing staff to investigate and prevent him from falling an further injuring himself. BACKGROUND HISTORY Sources of information: 1-[employer] chart notes 2-Interview with Clayton , his 53 year old son, Clayton, a former counselor for the [employer] for over a decade 3-The nursing staff 4-Emir Total time spent: 60 minutes Clayton tells me that, in all of the 53 years he has known his father{He , by the way, lives with them and takes care of both parents) he has never known him to be: 1-Depressed 2-Agitated 3-Aggressive 4-Suicidal 5-Unpleasant or 6-Having any noticeable mood and cognitive issues except for the brief period after the implanting of a right cochlear implant following a yearlong sudden onset of severe hearing loss in the right ear on July 06, 2016. After he came out of general anesthesia, he surprised the whole family because , all of a sudden,he became combative and aggressive and agitated "calling all the nurses 'chickenshit' and threatening to vin them all." The following day, they noticed depression and was placed on an antidepressant, Sertraline at a minimal dose of around 25 mg. He developed pruritus, and in an effort to rule out the cause, they discontinued Sertraline but this did not stop the itching so that they decided to discontinue the steroid ordered for his arthritis and the latter seemed to do the trick: He calmed down and the pruritus disappeared. After admission here, among other things, he was placed on: 1-Lignite 5-535 QID 2-On the of this week, Alprazolam 0.25 mg TID was added . 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 More importantly, today, when he was slated to be moved to the [facility] {because [facility] , where his is, considered his case as meriting a higher level of care, wanted him to go to the [facility] , who was presumed to have accepted him already. And then THIS happened: His allegedly grabbing one of our MACHINE BUFFER's throat while she, together with two other members of our nursing staff were attempting to respond to the setting of the chair alarm and , thus, trying to prevent him from falling and harming himself so that the said MACHINE BUFFER, attempted to place a protective belt around his waist. The son was summoned back by the staff. He says: "I noticed that he was sounding drunk to me. Eats all the time, cannot focus or not be distractible , and keeps feeling sorry for himself for not being able to do a lot of stuff he has been used to doing for himself." The Alprazolam was discontinued this afternoon. In patients of this geriatric age , the combination of Alprazolam and an opioid like Lignite , is often discouraged by the CDC. Because of the age and the classification of Mr. Robbins as having Stage III Renal failure , UTI, plus the very real possibility of Pyelonephritis, with a positive urine culture of Pseudomonas aeruginosa , can be problematic because of : 1-IEU136 issues of people at this age wherein the phenomenon of induction and transduction of isoenzyme systems in RPO086 can pose unexpected and unintended synergistic effects instead of what might be expected additive effects of combining these two together. 2-The possible alteration of the elimination half-lives of both , especially that of Alprazolam being 6.3 to 27 hours which, by inference , can potentially last 13 to 55 hours total. INTERVIEW I did this in his hospital room with Clayton assisting me. What stood out so dramatically is that , due to his new Cochlear implant and the residual hearing impairment, Emir oftentimes mishears and misinterprets questions if one does not make sure that he can see your lips and your face and if you do not keep repeating the query until he can repeat that question back to you before answering. This technique dramatically debunked the notion that he was disoriented as to time , place , and person. This person demonstrated an alacrity of mentation and a biting, dry sense of humor not often found in situations where non-frontal lobe associated dementia might produce dysexecutive dysfunction of the affect and cognition.He was not hostile or aggressive or psychotic at all. IMPRESSION 9-Tbwggduifcps-qhijcyn mental disorder. I recommend that we discontinue Alprazolam and Lignite STAT. At some future time , when sedation is needed , I would recommend a small dose of Lorazepam , which usually stays in one's system for only 8 hours. 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 I shall be g;lad to comanage this fellow with you. Maryana Victor M.D. - History of Present Illness Allergies/Adverse Reactions: Allergies Penicillins Adverse Reaction (Severe, Verified 05/31/17 11:42) Hives sulfamethoxazole [From Bactrim] Adverse Reaction (Severe, Verified 05/31/17 11: 42) Vomiting trimethoprim [From Bactrim] Adverse Reaction (Severe, Verified 05/31/17 11:42) Vomiting Home Medications: Home Medications Medication Instructions Recorded Last Taken Acetaminophen [Tylenol] 650 mg PO Q4H PRN 05/31/17 Unknown Furosemide [Lasix] 40 mg PO DAILY PRN 05/31/17 Unknown Potassium Chloride [Klor-Con M20] 20 meq PO DAILY 05/31/17 Unknown - Patient's Past Medical History Patient History - Medical: Arthritis, Dementia, Renal Disease, UTI'S, Other Patient History - Cardiac/Respiratory: Aneurysm, Coronary Heart Disease, COPD, Hypertension, Peripheral Vascular Disease Patient History - Cancer: No Hx of Cancer Patient History - Surgical Procedures: Cataracts, Other - cochlear implant 2015 Patient History - Other: None - Family History Mother Family History - Medical: , Alzheimer's Disease Family History - Cardiac/Respiratory: No pertinent hx Family History - Cancer: No pertinent family hx Father Family History - Medical: Family History - Cancer: Throat - Social History Living Situations: home Abuse History: No History of abuse Psych History: No pertinent hx Does anyone smoke in the home?: No Smoking Status: Former smoker Have you smoked in the past 12 months: No Do you dip or chew tobacco: No Patient requests Smoking Cessation Consult: No Initiate information on Smoking Cessation: No Alcohol Use: none Drug Use: none - Immunizations Immunizations Up to Date: Yes Hx Pneumococcal Vaccination: Yes History of Influenza Vaccine: Yes Procedures AFTER-CATAR DISCISSION (02/25/10) CATARAC PHACOEMULS/ASPIR (06/18/08) CYSTOSCOPY NEC (03/05/15) DORSAL/LAT SLIT PREPUCE (03/05/15) ING HERNIA REP-GRAFT NOS (11/23/11) INSERT LENS AT CATAR EXT (06/18/08) REPAIR SCALP SKIN, EXTERNAL APPROACH (06/17/16) Medications - Medications Current Medications: Current Medications Acetaminophen (Tylenol) 650 mg PO Q4H PRN PRN Reason: Mild Pain Stop: 07/01/17 08:38 Last Admin: 06/02/17 16:15 Dose: 650 mg Acetaminophen/Hydrocodone Bitart (Lignite 5-325) 1 each PO Q6H PRN PRN Reason: Moderate Pain Stop: 07/01/17 09:45 Last Admin: 06/05/17 12:13 Dose: 1 each Acetaminophen/Hydrocodone Bitart (Lignite 5-325) 1 each PO QID TODD Stop: 07/04/17 21:01 Last Admin: 06/07/17 17:00 Dose: 1 each Albuterol Sulfate (Albuterol Sulfate 2.5 Mg/0.5ml) 2.5 mg IH TIDRT TODD Stop: 07/05/17 19:01 Last Admin: 06/07/17 13:10 Dose: 2.5 mg Albuterol/Ipratropium (Duoneb 2.5-0.5mg/3ml Soln) 3 ml IH QID PRN PRN Reason: Shortness Of Breath Stop: 06/30/17 16:30 Last Admin: 06/04/17 13:46 Dose: 3 ml Amlodipine Besylate (Norvasc) 10 mg PO DAILY TODD Stop: 07/01/17 08:46 Last Admin: 06/07/17 08:46 Dose: 10 mg Bisacodyl (Dulcolax) 5 mg PO HS TODD Stop: 07/04/17 21:01 Last Admin: 06/06/17 20:08 Dose: 5 mg Enoxaparin Sodium (Lovenox) 40 mg SC Q24H TODD Stop: 06/30/17 17:01 Last Admin: 06/07/17 16:59 Dose: 40 mg Famotidine (Pepcid) 20 mg PO BIDAC TODD Stop: 07/04/17 17:01 Last Admin: 06/07/17 16:59 Dose: 20 mg Hydrocortisone (Hydrocortisone 1% Cream) 1 appl TP QID PRN PRN Reason: Itching Stop: 07/01/17 09:27 Last Admin: 06/03/17 07:23 Dose: 1 appl Leflunomide (Arava) 20 mg PO DAILY TODD Stop: 07/01/17 09:01 Last Admin: 06/07/17 08:45 Dose: 20 mg Loratadine (Claritin) 10 mg PO DAILY TODD Stop: 07/04/17 10:16 Last Admin: 06/07/17 08:46 Dose: 10 mg Losartan Potassium (Cozaar) 50 mg PO DAILY TODD Stop: 07/04/17 10:31 Last Admin: 06/07/17 08:46 Dose: 50 mg Multi-Ingredient Ointment (Aquaphilic Ointment) 1 appl TP BID TODD Stop: 07/01/17 10:16 Last Admin: 06/07/17 08:45 Dose: 1 appl Mupirocin (Bactroban) 1 appl TP TID TODD Stop: 07/01/17 09:01 Last Admin: 06/07/17 17:00 Dose: 1 appl Pantoprazole Sodium (Protonix) 40 mg PO DAILY@0700 TODD Stop: 06/30/17 16:31 Last Admin: 06/07/17 07:11 Dose: 40 mg Psyllium Hydrophilic Mucilloid (Metamucil) 1 each PO DAILY TODD Stop: 07/04/17 17:01 Last Admin: 06/07/17 08:46 Dose: 1 each Saccharomyces Boulardii (Florastor) 250 mg PO BID [facility] Stop: 06/30/17 20:01 Last Admin: 06/07/17 08:46 Dose: 250 mg Senna (Senokot) 8.6 mg PO BID TODD Stop: 07/04/17 21:01 Last Admin: 06/07/17 08:46 Dose: 8.6 mg Terbinafine HCl (Lamisil) 250 mg PO DAILY TODD Stop: 07/01/17 09:01 Last Admin: 06/07/17 08:45 Dose: 250 mg Physical Examination - Exam Vital Signs: Vital Signs - Last Taken Temp 36.3 C L 06/07/17 18:19 Pulse 87 06/07/17 18:19 Resp 20 06/07/17 18:19 BP 146/65 06/07/17 18:19 Pulse Ox 96 06/07/17 18:19 O2 Oxygen Delivery Method Room Air - Assessments/Findings (1) aggression and agitation Problem: Acute (2) Altered mental status Problem: Acute Qualifiers: Altered mental status type: disorientation Qualified Code(s): R41.0 - Disorientation, unspecified (3) aggression and agitation Problem: Acute
[2017-06-07] MEDS: BISACODYL 5 MG TABLET.DR PO SCH (22:04)
[2017-06-08] MEDS: ALBUTEROL SULFATE 2.5 MG/0.5 ML VIAL.NEB IH SCH ×3 (06:06→18:45)
[2017-06-08] MEDS: FAMOTIDINE 20 MG TABLET PO SCH ×2 (07:45→17:13)
[2017-06-08] MEDS: PANTOPRAZOLE SODIUM 40 MG TABLET.EC PO SCH (07:45)
[2017-06-08] MEDS ORDERED: LORazepam 2 MG/ML DISP.SYRIN IV PRN (08:29)
--- NOTE | 2017-06-08 09:16 | PN ---
Progess Note - Interim Narrative: 06/08/17 09:15 patient asleep . IV ativan ordered for combative behavior this morning. 06/08/17 ADDENDUM: No IV line due to patient pulling it out yesterday. will change Ativan to PO or if refusing to IM or reinsertion of IV line.
[2017-06-08] MEDS: LEFLUNOMIDE 20 MG TABLET PO SCH (09:29)
[2017-06-08] MEDS: MUPIROCIN 22 APPL TUBE TP SCH ×3 (09:29→17:12)
[2017-06-08] MEDS: LORATADINE 10 MG TABLET PO SCH (09:30)
[2017-06-08] MEDS: SACCHAROMYCES BOULARDII 250 MG CAPSULE PO SCH ×2 (09:31→20:51)
[2017-06-08] MEDS: LOSARTAN POTASSIUM 50 MG TABLET PO SCH (09:31)
[2017-06-08] MEDS: PSYLLIUM SEED 1 PACKET PACKET PO SCH (09:31)
[2017-06-08] MEDS: TERBINAFINE HCL 250 MG TABLET PO SCH (09:31)
[2017-06-08] MEDS: amLODIPine BESYLATE 10 MG TABLET PO SCH (09:32)
[2017-06-08] MEDS: HYDROcodone/ACETAMINOPHEN 1 EACH TABLET PO SCH (09:32)
[2017-06-08] MEDS: SENNOSIDES 8.6 MG TABLET PO SCH ×2 (09:33→20:52)
[2017-06-08] MEDS: ACETAMINOPHEN 325 MG TABLET PO SCH ×4 (09:41→20:51)
[2017-06-08] MEDS: HYDROPHILIC OINTMENT 454 APPL JAR TP SCH ×2 (09:44→20:51)
--- NOTE | 2017-06-08 14:44 | PN ---
Subjective - Date and Time Seen Date: 06/08/17 Time: 14:39 Subjective Narrative: patient again has been combative . Dr. Victor has seen the patient. Objective - Review of Systems Generalized/Overall Review: Reports: No Symptoms Reported EENTM: Reports: No Symptoms Reported Respiratory: Reports: No Symptoms Reported Cardiac: Reports: No Symptoms Reported Abdominal: Reports: No Symptoms Reported Genitourinary Symptoms: Reports: No Symptoms Reported Musculoskeletal Complaints: Reports: No Symptoms Reported Neurological: Reports: No Symptoms Reported Skin: Reports: No Symptoms Reported Endocrine: Reports: No Symptoms Reported Misc: All systems neg except as marked - ROS is unreliable due to oatient's mentation - Vitals Vitals: Last Vital Signs Temp 37.2 C 06/08/17 09:49 Pulse 90 06/08/17 09:49 Resp 20 06/08/17 09:49 BP 132/82 06/08/17 09:49 Pulse Ox 95 06/08/17 06:06 - Exam Constitutional: Present: Alert - AAO x 2, Elderly ENT Exam: Present: hard of hearing, other - uses a hearing aide Neck: Present: supple Breasts: Present: Exam deferred Respiratory: Present: decreased breath sounds, No rales, No wheezing Cardiovascular/Chest: Present: regular rate, rhythm, no JVD, no murmur Abdomen: Present: Normal bowel sounds, soft, nontender, nondistended Extremity: Present: no calf tenderness, pedal edema Cauti Physician Documentation - Urinary Catheter Management Uretheral (Romero) Urethral Indwelling: No Assessment/Plan - Problems/Diagnosis (1) Altered mental status Problem: Acute Qualifiers: Altered mental status type: disorientation Qualified Code(s): R41.0 - Disorientation, unspecified Narrative: ativan on PRN basis for agitation. tylenol on routine basis. (2) Dementia Problem: Chronic Qualifiers: Dementia type: Alzheimer's disease Alzheimer's disease onset: late-onset Dementia behavioral disturbance: with behavioral disturbance Qualified Code(s) : G30.1 - Alzheimer's disease with late onset; F02.81 - Dementia in other diseases classified elsewhere with behavioral disturbance (3) UTI (urinary tract infection) Problem: Resolved Qualifiers: Urinary tract infection type: site unspecified Hematuria presence: without hematuria Qualified Code(s): N39.0 - Urinary tract infection, site not specified (4) Respiratory failure, chronic Problem: Resolved Qualifiers: Respiratory failure complication: unspecified whether with hypoxia or hypercapnia Qualified Code(s): J96.10 - Chronic respiratory failure, unspecified whether with hypoxia or hypercapnia (5) Fall Problem: Acute (6) Rib fracture Problem: Acute (7) Weakness Problem: Acute
[2017-06-08] MEDS: ENOXAPARIN SODIUM 40 MG/0.4 ML SYRG SC SCH (17:12)
[2017-06-08] MEDS: ALBUTEROL SULFATE/IPRATROPIUM 3 ML NEBU IH PRN (18:35)
[2017-06-08] MEDS: LORazepam 1 MG TABLET PO PRN (20:51)
[2017-06-08] MEDS: BISACODYL 5 MG TABLET.DR PO SCH (20:52)
[2017-06-09] MEDS: ACETAMINOPHEN 325 MG TABLET PO SCH ×3 (02:19→09:59)
[2017-06-09] MEDS: ALBUTEROL SULFATE 2.5 MG/0.5 ML VIAL.NEB IH SCH (06:18)
[2017-06-09] MEDS: FAMOTIDINE 20 MG TABLET PO SCH (07:13)
[2017-06-09] MEDS: PANTOPRAZOLE SODIUM 40 MG TABLET.EC PO SCH (07:13)
--- NOTE | 2017-06-09 08:45 | PN ---
Progess Note - Interim Narrative: 06/09/17 08:44 Had no mention of further aggression but did get 1 dose of Ativan last night.
[2017-06-09] MEDS: LOSARTAN POTASSIUM 50 MG TABLET PO SCH (09:58)
[2017-06-09] MEDS: SACCHAROMYCES BOULARDII 250 MG CAPSULE PO SCH (09:58)
[2017-06-09] MEDS: LEFLUNOMIDE 20 MG TABLET PO SCH (09:59)
[2017-06-09] MEDS: LORATADINE 10 MG TABLET PO SCH (09:59)
[2017-06-09] MEDS: SENNOSIDES 8.6 MG TABLET PO SCH (09:59)
[2017-06-09] MEDS: LORazepam 1 MG TABLET PO PRN (09:59)
[2017-06-09] MEDS: PSYLLIUM SEED 1 PACKET PACKET PO SCH ×2 (09:59→10:05)
[2017-06-09] MEDS: TERBINAFINE HCL 250 MG TABLET PO SCH (09:59)
[2017-06-09] MEDS: amLODIPine BESYLATE 10 MG TABLET PO SCH (10:00)
[2017-06-09] MEDS: MUPIROCIN 22 APPL TUBE TP SCH (10:02)
[2017-06-09] MEDS: HYDROPHILIC OINTMENT 454 APPL JAR TP SCH (10:02)
--- NOTE | 2017-06-09 10:16 | DS ---
(1) Altered mental status Problem: Acute Qualifiers: Altered mental status type: disorientation Qualified Code(s): R41.0 - Disorientation, unspecified (2) Dementia Problem: Chronic Qualifiers: Dementia type: Alzheimer's disease Alzheimer's disease onset: late-onset Dementia behavioral disturbance: with behavioral disturbance Qualified Code(s) : G30.1 - Alzheimer's disease with late onset; F02.81 - Dementia in other diseases classified elsewhere with behavioral disturbance (3) UTI (urinary tract infection) Problem: Resolved Qualifiers: Urinary tract infection type: site unspecified Hematuria presence: without hematuria Qualified Code(s): N39.0 - Urinary tract infection, site not specified (4) Respiratory failure, chronic Problem: Chronic Qualifiers: Respiratory failure complication: unspecified whether with hypoxia or hypercapnia Qualified Code(s): J96.10 - Chronic respiratory failure, unspecified whether with hypoxia or hypercapnia (5) Fall Problem: Acute (6) Rib fracture Problem: Acute (7) Weakness Problem: Acute Description of Stay: Emir Robbins, is an 81 year old male with a PMH of COPD, RA, CAD, HTN, CKD , and AAA who presented to the ER on 05/31/2017 with c/o increased confusion, rib pain, weakness, dyspnea and inability to perform ADLs at home. pt with chronic respiratory failure - uses 2L O2 at hs. was seen in the ER on 05/28/17 after a fall at home and diagnosed with 2 mildly displaced rib fractures. ER eval revealed elevated wbc at 11.3 with 84.1% neutrophils. hgb/hct at 12.9/ 39.8. mild hypernatremia with Na+ at 146. creatinine at 1.54 (baseline at 1.2- 1.7). EKG showing NSR with HR 63 and non-specific st-t wave changes. chest xray showing no acute cardiopulmonary changes. UA positive for >50 wbc, +2 bacteria and no RBCs, unable to obtain full UA due to purulent nature of UA. lung sounds in ER wheezing, improved after 1 duoneb breathing treatment. patient with significant increase in confusion but has a history of decline in mental status with urinary tract infections. patient was previously treated for UTI on 04/14/17 outpatient with cipro po bid x7 days. urine culture grew pseudomonas. family was considering SNF placement as he has become unable to do ADLs at home. Patient was admitted for UTI r/o pylonephritis, weakness, COPD exac and discharge planning issues. Je was started on Cefepime, IV soulmedrol, breathing treatments. His culture grew pseudomonas. His WBC trended down but started to go up again and so his IV antibiotics was changed to IV Zosyn. He improved clinically and his WBC is back to normal and his acute COPD exacerbation has resolved. His mentation has improved and is back to his baseline dementia however he was having behavioral changes. He was referred to Dr. Victor, Psychiatry. His Ativan was changed to PRN and we discontinued his percoset and put on him opn routine Tylenol. He has been better behaved the last 2 days. He can be discharged to the [place] today.. Procedures Performed: none Discharge Disposition: [facility] Disposition: [facility] Condition: Fair Discharge Activity: Activity as tolerated Discharge Diet: General/regular food Long Term Therapy: Physicial Therapy, Occupation Therapy Referrals: Mauricio Boyce MD [Primary Care Provider] - Additional Patient Instructions (free text): [facility] SNF at discharge. will follow up patient in [place] . SNF for PT and OT. Prescriptions (Any new or edited meds): Acetaminophen [Tylenol] 650 mg PO Q6H #30 tablet Albuterol Sulfate [Albuterol Sulfate 2.5 MG/3 ML] 2.5 mg IH Q6H PRN #7 vial.neb PRN Reason: Shortness Of Breath/Wheezing Albuterol Sulfate/Ipratropium [Duoneb 2.5-0.5MG/3ML Soln] 3 ml IH BID #7 nebu amLODIPine BESYLATE [Norvasc] 10 mg PO DAILY #30 tablet HYDROcodone/ACETAMINOPHEN [[place] 5-325] 1 each PO QID #30 tablet LORazepam [Ativan] 1 mg PO TID PRN #30 tablet PRN Reason: Anxiety Losartan Potassium [Cozaar] 50 mg PO DAILY #30 tablet Pantoprazole Sodium [Protonix] 40 mg PO DAILY@0700 #30 tablet. Psylljudi Husk (with Sugar) [Metamucil] 1 each PO DAILY #30 packet Sennosides [Senokot] 8.6 mg PO BID #60 tablet Complete Home Medications List: Complete Home Medication List: Furosemide [Lasix] 40 mg PO DAILY PRN 05/31/17 Potassium Chloride [Klor-Con M20] 20 meq PO DAILY 05/31/17 Albuterol Sulfate [Albuterol Sulfate 2.5 MG/3 ML] 2.5 mg IH Q6H PRN #7 vial.neb 06/07/17 Albuterol Sulfate/Ipratropium [Duoneb 2.5-0.5MG/3ML Soln] 3 ml IH BID #7 nebu Hydrophilic Ointment [Aquaphilic Ointment] 1 appl TP BID jar 06/07/17 Leflunomide [Arava] 20 mg PO DAILY tablet 06/07/17 Losartan Potassium [Cozaar] 50 mg PO DAILY #30 tablet 06/07/17 Pantoprazole Sodium [Protonix] 40 mg PO DAILY@0700 #30 tablet. 06/07/17 Psyllium Husk (with Sugar) [Metamucil] 1 each PO DAILY #30 packet 06/07/17 Sennosides [Senokot] 8.6 mg PO BID #60 tablet 06/07/17 amLODIPine BESYLATE [Norvasc] 10 mg PO DAILY #30 tablet 06/07/17 Acetaminophen [Tylenol] 650 mg PO Q6H #30 tablet 06/09/17 LORazepam [Ativan] 1 mg PO TID PRN #30 tablet 06/09/17
[2017-06-09 10:18] VITALS: BP 133/64
== END 2017-06-09 11:15 | DRG 191 ==
LOC: ER 11:05 → MS 14:15 → OBSVTOIN 16:27
PROVIDERS: ADMIT Nurse Practitioner Critical Care Medicine; ATTEND Internal Medicine
DX: J44.1 Chronic obstructive pulmonary disease with (acute) exacerbation (principal); J96.10 Chronic respiratory failure, unspecified whether with hypoxia or hypercapnia; N39.0 Urinary tract infection, site not specified; F02.81 Dementia in other diseases classified elsewhere, unspecified severity, with behavioral disturbance; I50.32 Chronic diastolic (congestive) heart failure; S22.39XA Fracture of one rib, unspecified side, initial encounter for closed fracture; W19.XXXA Unspecified fall, initial encounter; Y92.007 Garden or yard of unspecified non-institutional (private) residence as the place of occurrence of the external cause; R53.1 Weakness; R41.0 Disorientation, unspecified; B96.5 Pseudomonas (aeruginosa) (mallei) (pseudomallei) as the cause of diseases classified elsewhere; I12.9 Hypertensive chronic kidney disease with stage 1 through stage 4 chronic kidney disease, or unspecified chronic kidney disease; N18.3 Chronic kidney disease, stage 3 (moderate); I27.2 Other secondary pulmonary hypertension; G30.1 Alzheimer's disease with late onset; M05.79 Rheumatoid arthritis with rheumatoid factor of multiple sites without organ or systems involvement; Z99.81 Dependence on supplemental oxygen
CPT/HCPCS: 36415; 51701; 71010; 71020; 76770; 80048; 80053; 81015; 83605; 83880; 84484; 85025; 87040; 87077; 87081; 87086; 87186; 93005; 94640; 96365; 96375; 97110; 97116; 97162; 97165; 97530; 97535; 99284; G8987; G8988; G8989

== ENCOUNTER 2017-06-30 17:41 | Inpatient (IN) | payer MEDICARE, BC ==
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
[2017-06-30 20:10] LABS: Hematocrit 36.4 % (42.0-52.0); Hemoglobin 11.5 gm/dL (13.5-18.0); Mean Cell Volume 83.1 fl (78-100); Mean Corpuscular Hemoglobin 26.3 pg (27-31); Mean Corpuscular Hgb Conc 31.6 g/dl (32-36); Mean Platelet Volume 9.9 fl (6.0-9.5); Neutrophil # 7.3 K/mm3 (1.3-6.0); Neutrophil % 76.8 % (42-75.0); Platelet Count 287 K/mm3 (150-450); Red Blood Count 4.38 M/mm3 (4.7-6.0); Red Cell Distribution Width 15.2 % (11.5-14.0); White Blood Count 9.4 K/mm3 (4.0-10.5)
[2017-06-30 20:29] LABS: Anion Gap 15.2 mmol/L (6.8-13.8); BUN/Creatinine Ratio 14.2 (9.0-21.6); Bilirubin, Total 0.2 mg/dL (0.0-1.1); Ca. Corrected For Albumin 9.3 mg/dL (8.4-10.2); Calcium * 8.8 mg/dL (7.9-10.9); Carbon Dioxide 23.3 mmol/L (24-32.6); Potassium 4.5 mmol/L (3.4-4.6); Total Protein 6.9 gm/dL (6.2-8.2)
[2017-06-30 21:53] LABS: Urine Bilirubin Negative (NEGATIVE); Urine Blood 250 /ul (NEGATIVE); Urine Ketone Negative (NEGATIVE); Urine Nitrite Negative (NEGATIVE); Urine Protein 30 mg/dL (NEGATIVE); Urine Urobilinogen Normal (NORMAL)
[2017-06-30 22:16] LABS: Urine Appearance Clear; Urine Bacteria 2+; Urine Color Yellow; Urine RBC 25-50 /hpf (0-5); Urine WBC 0-5 /hpf (0-5)
[2017-07-01] MEDS ORDERED: NORMAL SALINE 1,000 ML IV PRN (00:30)
[2017-07-01] MEDS ORDERED: FUROSEMIDE 40 MG TABLET PO PRN (00:31)
[2017-07-01] MEDS ORDERED: ACETAMINOPHEN 500 MG TABLET PO PRN (00:31)
[2017-07-01] MEDS ORDERED: LORazepam 2 MG/ML DISP.SYRIN IV PRN (00:36)
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
[2017-07-01] MEDS ORDERED: ALBUTEROL SULFATE/IPRATROPIUM 3 ML NEBU IH SCH (01:00)
[2017-07-01] MEDS ORDERED: CEFEPIME HCL 1 GM in DEXTROSE 5 % IN WATER 100 ML IV SCH ×2 (01:00)
[2017-07-01] MEDS ORDERED: ALBUTEROL SULFATE 2.5 MG/0.5 ML VIAL.NEB IH PRN (01:00)
[2017-07-01] MEDS ORDERED: LORazepam 2 MG/ML DISP.SYRIN IM ONE (01:03)
[2017-07-01] MEDS ORDERED: HALOPERIDOL LACTATE 5 MG/ML VIAL IM PRN (01:47)
[2017-07-01] MEDS: sulfaSALAzine 500 MG TABLET PO SCH ×3 (01:58→20:34)
[2017-07-01 03:44] LABS: Hematocrit 37.3 % (42.0-52.0); Hemoglobin 11.6 gm/dL (13.5-18.0); Mean Cell Volume 83.4 fl (78-100); Mean Corpuscular Hgb Conc 31.1 g/dl (32-36); Mean Platelet Volume 10.5 fl (6.0-9.5); Neutrophil # 6.6 K/mm3 (1.3-6.0); Neutrophil % 76.4 % (42-75.0); Platelet Count 280 K/mm3 (150-450); Red Blood Count 4.47 M/mm3 (4.7-6.0); Red Cell Distribution Width 15.1 % (11.5-14.0); White Blood Count 8.6 K/mm3 (4.0-10.5)
[2017-07-01 03:51] LABS: Anion Gap 16.7 mmol/L (6.8-13.8); BUN/Creatinine Ratio 13.9 (9.0-21.6); Carbon Dioxide 22.7 mmol/L (24-32.6); Estimated Creat Clear 34.7; Potassium 4.4 mmol/L (3.4-4.6)
[2017-07-01] MEDS: PANTOPRAZOLE SODIUM 40 MG TABLET.EC PO SCH (06:44)
[2017-07-01] MEDS: ALBUTEROL SULFATE/IPRATROPIUM 3 ML NEBU IH SCH ×2 (07:40→18:25)
[2017-07-01] MEDS: HYDROPHILIC OINTMENT 454 APPL JAR TP SCH ×2 (09:47→20:34)
[2017-07-01] MEDS: POTASSIUM CHLORIDE 20 MEQ TABLET.SA PO SCH (09:48)
[2017-07-01] MEDS: LOSARTAN POTASSIUM 50 MG TABLET PO SCH (09:48)
[2017-07-01] MEDS: ACETAMINOPHEN 325 MG TABLET PO SCH ×3 (09:49→16:56)
[2017-07-01] MEDS: amLODIPine BESYLATE 10 MG TABLET PO SCH (09:49)
[2017-07-01] MEDS: PSYLLIUM SEED 1 PACKET PACKET PO SCH (09:49)
[2017-07-01] MEDS: SENNOSIDES 8.6 MG TABLET PO SCH ×2 (09:49→20:34)
[2017-07-01] MEDS ORDERED: CEFEPIME HCL 1 GM in DEXTROSE 5 % IN WATER 100 ML IM SCH ×2 (11:15)
[2017-07-01] MEDS: CEFEPIME HCL 1 GM VIAL IM SCH (14:06)
[2017-07-01] MEDS ORDERED: FLU VACC QS2017-18(6MOS UP)/PF 60 MCG/0.5 ML SYRINGE IM ONE (16:00)
[2017-07-01] MEDS: ENOXAPARIN SODIUM 40 MG/0.4 ML SYRG SC SCH (16:55)
[2017-07-02] MEDS ORDERED: LORazepam 2 MG/ML DISP.SYRIN IM SCH ×2 (01:00→01:15)
[2017-07-02] MEDS: ALBUTEROL SULFATE/IPRATROPIUM 3 ML NEBU IH SCH ×2 (06:30→18:28)
[2017-07-02] MEDS: HYDROPHILIC OINTMENT 454 APPL JAR TP SCH ×2 (09:55→20:44)
[2017-07-02] MEDS: sulfaSALAzine 500 MG TABLET PO SCH ×2 (09:55→20:43)
[2017-07-02] MEDS: PANTOPRAZOLE SODIUM 40 MG TABLET.EC PO SCH (09:55)
[2017-07-02] MEDS: POTASSIUM CHLORIDE 20 MEQ TABLET.SA PO SCH (09:55)
[2017-07-02] MEDS: SENNOSIDES 8.6 MG TABLET PO SCH ×2 (09:56→20:43)
[2017-07-02] MEDS: PSYLLIUM SEED 1 PACKET PACKET PO SCH (09:56)
[2017-07-02] MEDS: ACETAMINOPHEN 325 MG TABLET PO SCH ×3 (10:07→17:36)
--- NOTE | 2017-07-02 10:29 | PN ---
<Chanel Clifton - Last Filed: 07/02/17 13:52> Subjective - Date and Time Seen Date: 07/02/17 Time: 10:29 Subjective Narrative: aggressive and angry with staff overnight and this am. I, personally, discussed with patient that this is not appropriate. required IM Ativan overnight to calm patient and keep staff safe. patient unwilling to answer questions regarding how he is feeling. Objective - Review of Systems Generalized/Overall Review: Denies: No Symptoms Reported - unable to complete due to patient condition. - Vitals Vitals: Last Vital Signs Temp 36.8 C 07/02/17 09:41 Pulse 93 07/02/17 09:41 Resp 18 07/02/17 09:41 BP 152/95 07/02/17 09:41 Pulse Ox 95 07/02/17 09:41 - Exam Constitutional: Present: No distress, Elderly. Absent: Cooperative ENT Exam: Present: hard of hearing Neck: Present: supple Breasts: Present: Exam deferred Respiratory: Present: lungs clear, normal breath sounds, no respiratory distress Cardiovascular/Chest: Present: normal peripheral pulses, regular rate, rhythm Abdomen: Present: soft, nontender, nondistended /Rectal: Present: Exam deferred Extremity: Present: normal range of motion, normal inspection Skin Exam: Present: normal color, warm/dry, no cyanosis Assessment/Plan Plan Narrative: 81 year old male admitted with UTI and AMS. mentation has not improved. aggressive with staff overnight, requiring ativan 2 mg IM to calm patient and keep staff safe. Is now as of now after my discussion with him. Patient has a history of repeatedly growing pseudomonas in his urine - on cefepime IM q 12 hours as he pulled out his IV. urine culture pending. awaiting psych consult. will need placement when ready for discharge. - Problems/Diagnosis (1) Altered mental status Problem: Acute QualifierTitle: Altered mental status type: disorientation Qualified Code (s): R41.0 - Disorientation, unspecified (2) Urinary tract infection Problem: Acute QualifierTitle: Urinary tract infection type: site unspecified Hematuria presence: without hematuria Qualified Code(s): N39.0 - Urinary tract infection , site not specified (3) Discharge planning issues Problem: Acute (4) aggression and agitation Problem: Acute (5) Anemia of chronic disease Problem: Chronic (6) Chronic diastolic (congestive) heart failure Problem: Chronic (7) Dementia Problem: Chronic QualifierTitle: Dementia type: Alzheimer's disease Alzheimer's disease onset: late-onset Dementia behavioral disturbance: with behavioral disturbance Qualified Code(s): G30.1 - Alzheimer's disease with late onset; F02.81 - Dementia in other diseases classified elsewhere with behavioral disturbance (8) HTN (hypertension) Problem: Chronic QualifierTitle: Hypertension type: essential hypertension Qualified Code( s): I10 - Essential (primary) hypertension (9) Peripheral arterial disease Problem: Chronic (10) Pulmonary hypertension Problem: Chronic (11) Stage III chronic kidney disease Problem: Chronic (12) COPD (chronic obstructive pulmonary disease) Problem: Chronic QualifierTitle: COPD type: unspecified COPD Qualified Code(s): J44.9 - Chronic obstructive pulmonary disease, unspecified <Clayton Torres - Last Filed: 07/02/17 14:49> Subjective Subjective Narrative: Urine no growth, but CXR shows TOÑITO pneumonia, so we will adjust the diagnosis and add zithromax. I personally direct the care of our nurse practitioner hospitalist for this person. Objective - Vitals Vitals: Last Vital Signs Temp 36.4 C L 07/02/17 11:48 Pulse 80 07/02/17 11:48 Resp 18 07/02/17 11:48 BP 103/67 07/02/17 11:48 Pulse Ox 97 07/02/17 11:48
[2017-07-02] MEDS: LOSARTAN POTASSIUM 50 MG TABLET PO SCH (10:32)
[2017-07-02] MEDS: amLODIPine BESYLATE 10 MG TABLET PO SCH (10:33)
[2017-07-02] MEDS: CEFEPIME HCL 1 GM VIAL IM SCH (13:09)
--- NOTE | 2017-07-02 14:54 | PN ---
Subjective - Date and Time Seen Date: 07/02/17 Time: 14:50 Subjective Narrative: Urine no growth, but CXR shows TOÑITO pneumonia, so we will adjust the diagnosis and add zithromax. I personally direct the care of our nurse practitioner hospitalist for this person. Objective - Review of Systems Generalized/Overall Review: Reports: No Symptoms Reported - this note is for the sole purpose of adjusting the diagnosis - Vitals Vitals: Last Vital Signs Selected Entries 07/02/17 11:48 Temperature 36.4 C L Temperature Temporal Artery Source Scan Pulse Rate 80 Respiratory 18 Rate Respiratory Normal Depth Blood Pressure 103/67 Blood Pressure Sitting Position O2 Sat by Pulse 97 Oximetry Oxygen Delivery Room Air Method - Exam Constitutional: Present: Alert Assessment/Plan Plan Narrative: TOÑITO pneumonia
--- NOTE | 2017-07-02 15:00 | PN ---
Subjective - Date and Time Seen Date: 07/02/17 Time: 14:58 Subjective Narrative: Urine no growth, but CXR shows TOÑITO pneumonia, so we will adjust the diagnosis and add zithromax. I personally direct the care of our nurse practitioner hospitalist for this person. This note is for the purpose of deleting the diagnosis of UTI and adding the diagnosis of TOÑITO of pneumonia, so see the urine culture and the CXR report. Objective - Review of Systems Generalized/Overall Review: Reports: No Symptoms Reported - doing note for the purpose of diagnoses. - Vitals Vitals: Last Vital Signs Selected Entries 07/02/17 14:53 Temperature 36.4 C L Temperature Temporal Artery Source Scan Pulse Rate 77 Respiratory 18 Rate Blood Pressure 113/61 Blood Pressure Sitting Position O2 Sat by Pulse 94 Oximetry Oxygen Delivery Room Air Method Assessment/Plan - Problems/Diagnosis (1) Pneumonia Problem: Acute Qualifiers: Laterality: left Lung location: upper lobe of lung (2) Altered mental status Problem: Acute Qualifiers: Altered mental status type: disorientation Qualified Code(s): R41.0 - Disorientation, unspecified (3) Discharge planning issues Problem: Acute (4) COPD (chronic obstructive pulmonary disease) Problem: Chronic Qualifiers: COPD type: unspecified COPD Qualified Code(s): J44.9 - Chronic obstructive pulmonary disease, unspecified (5) Dementia Problem: Chronic Qualifiers: Dementia type: Alzheimer's disease Alzheimer's disease onset: late-onset Dementia behavioral disturbance: with behavioral disturbance Qualified Code(s) : G30.1 - Alzheimer's disease with late onset; F02.81 - Dementia in other diseases classified elsewhere with behavioral disturbance (6) Pulmonary hypertension Problem: Chronic (7) Rheumatoid arthritis Problem: Chronic Qualifiers: Rheumatoid arthritis location: multiple sites Rheumatoid factor presence: with rheumatoid factor Qualified Code(s): 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
[2017-07-02] MEDS: ENOXAPARIN SODIUM 40 MG/0.4 ML SYRG SC SCH (15:13)
[2017-07-02] MEDS: LORATADINE 10 MG TABLET PO SCH (15:14)
[2017-07-02] MEDS: FAMOTIDINE 20 MG TABLET PO SCH ×2 (15:14→20:43)
[2017-07-02] MEDS: AZITHROMYCIN 250 MG TABLET PO SCH (15:14)
[2017-07-02] MEDS: LORazepam 1 MG TABLET PO PRN (16:11)
[2017-07-02] MEDS: LORazepam 2 MG/ML DISP.SYRIN IM PRN (18:59)
[2017-07-03 06:02] LABS: Anion Gap 16.1 mmol/L (6.8-13.8); BUN/Creatinine Ratio 15.3 (9.0-21.6); Calcium * 8.7 mg/dL (7.9-10.9); Estimated Creat Clear 35.3; Potassium 4.1 mmol/L (3.4-4.6)
[2017-07-03] MEDS: ALBUTEROL SULFATE/IPRATROPIUM 3 ML NEBU IH SCH ×2 (06:35→19:45)
[2017-07-03] MEDS: sulfaSALAzine 500 MG TABLET PO SCH ×2 (11:24→20:17)
[2017-07-03] MEDS: PANTOPRAZOLE SODIUM 40 MG TABLET.EC PO SCH (11:24)
[2017-07-03] MEDS: LOSARTAN POTASSIUM 50 MG TABLET PO SCH (11:24)
[2017-07-03] MEDS: POTASSIUM CHLORIDE 20 MEQ TABLET.SA PO SCH (11:24)
[2017-07-03] MEDS: amLODIPine BESYLATE 10 MG TABLET PO SCH (11:25)
[2017-07-03] MEDS: LORATADINE 10 MG TABLET PO SCH (11:25)
[2017-07-03] MEDS: SENNOSIDES 8.6 MG TABLET PO SCH ×2 (11:25→20:17)
[2017-07-03] MEDS: FAMOTIDINE 20 MG TABLET PO SCH ×2 (11:25→20:17)
[2017-07-03] MEDS: ACETAMINOPHEN 325 MG TABLET PO SCH ×3 (11:25→17:08)
[2017-07-03] MEDS: PSYLLIUM SEED 1 PACKET PACKET PO SCH (11:26)
[2017-07-03] MEDS: AZITHROMYCIN 250 MG TABLET PO SCH (11:26)
[2017-07-03] MEDS: HYDROPHILIC OINTMENT 454 APPL JAR TP SCH ×2 (11:30→20:17)
--- NOTE | 2017-07-03 12:38 | PN ---
Subjective - Date and Time Seen Date: 07/03/17 Time: 12:33 Subjective Narrative: Treating for pneumonia. Minimally cooperative. Disoriented. Slightly elevated sodium and creatinine. Objective - Review of Systems Generalized/Overall Review: Reports: No Symptoms Reported - poor historian as he is disoriented. - Vitals Vitals: Last Vital Signs Selected Entries 07/03/17 07/03/17 08:36 11:25 Temperature 36.4 C L Temperature Temporal Artery Source Scan Pulse Rate 96 96 Respiratory 20 Rate Respiratory Normal Depth Blood Pressure 111/71 111/71 Blood Pressure Sitting Position O2 Sat by Pulse 94 Oximetry Oxygen Delivery Room Air Method - Abnormal Lab Findings Abnormal Lab Findings: Abnormal Lab Results 07/03/17 Range/Units 05:35 Sodium 143 H (132-142) mmol/L Plasma Sodium 143 H (130-142) mmol/L Chloride 110 H (97-106) mmol/L Carbon Dioxide 21.0 L (24-32.6) mmol/L Anion Gap 16.1 H (6.8-13.8) mmol/L BUN 26 H (6-23) mg/dL Creatinine 1.70 H (0.4-1.4) mg/dL Est GFR (Non-Af Amer) 41 L (60-130) mL/min - Exam Constitutional: Present: Alert, Cooperative - somewhat. Absent: Oriented x3 ENT Exam: Present: normal ENT inspection Neck: Present: normal inspection Respiratory: Present: normal breath sounds, no respiratory distress Cardiovascular/Chest: Present: regular rate, rhythm, no murmur Abdomen: Present: Normal bowel sounds, soft, nontender, nondistended, no rebound tenderness, no hepatospenomegaly, no masses Extremity: Present: normal inspection, no pedal edema Skin Exam: Present: normal color, warm/dry, no cyanosis Neurologic: Present: alert Appearance: Present: appropriate appearance, neat Eye contact: Present: cooperative - minimally Assessment/Plan Plan Narrative: Continue antibiotics. Adjust fluids. Follow labs. - Problems/Diagnosis (1) Pneumonia Problem: Acute Qualifiers: Laterality: left Lung location: upper lobe of lung (2) Altered mental status Problem: Acute Qualifiers: Altered mental status type: disorientation Qualified Code(s): R41.0 - Disorientation, unspecified (3) Discharge planning issues Problem: Acute (4) COPD (chronic obstructive pulmonary disease) Problem: Chronic Qualifiers: COPD type: unspecified COPD Qualified Code(s): J44.9 - Chronic obstructive pulmonary disease, unspecified (5) Dementia Problem: Chronic Qualifiers: Dementia type: Alzheimer's disease Alzheimer's disease onset: late-onset Dementia behavioral disturbance: with behavioral disturbance Qualified Code(s) : G30.1 - Alzheimer's disease with late onset; F02.81 - Dementia in other diseases classified elsewhere with behavioral disturbance (6) Pulmonary hypertension Problem: Chronic (7) Rheumatoid arthritis Problem: Chronic Qualifiers: Rheumatoid arthritis location: multiple sites Rheumatoid factor presence: with rheumatoid factor Qualified Code(s): 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
[2017-07-03] MEDS: CEFEPIME HCL 1 GM VIAL IM SCH (13:29)
[2017-07-03] MEDS: DEXTROSE 5%-0.2 NORMAL SALINE 1,000 ML IV PRN (13:56)
[2017-07-03] MEDS: ENOXAPARIN SODIUM 40 MG/0.4 ML SYRG SC SCH (14:00)
[2017-07-03] MEDS ORDERED: LORazepam 2 MG/ML DISP.SYRIN IV ONE ×2 (17:00→18:18)
[2017-07-03] MEDS: LORazepam 2 MG/ML DISP.SYRIN IV PRN (19:47)
[2017-07-04] MEDS: DEXTROSE 5%-0.2 NORMAL SALINE 1,000 ML IV PRN (01:44)
[2017-07-04] MEDS: LORazepam 2 MG/ML DISP.SYRIN IV PRN (03:01)
[2017-07-04 06:17] LABS: Anion Gap 13.8 mmol/L (6.8-13.8); BUN/Creatinine Ratio 14.8 (9.0-21.6); Calcium * 8.6 mg/dL (7.9-10.9); Carbon Dioxide 23.2 mmol/L (24-32.6); Estimated Creat Clear 35.5
--- NOTE | 2017-07-04 07:40 | PN ---
Subjective - Date and Time Seen Date: 07/04/17 Time: 07:36 Subjective Narrative: aggressive and angry with staff overnight and this am. uncooperative. required iv ativan last night and overnight to keep himself and staff safe. Objective - Review of Systems Generalized/Overall Review: Reports: No Symptoms Reported - unable to complete due to patient condition - Vitals Vitals: Last Vital Signs Temp 35.2 C L 07/04/17 02:36 Pulse 62 07/04/17 02:36 Resp 16 07/04/17 02:36 BP 132/60 07/04/17 02:36 Pulse Ox 95 07/04/17 02:36 - Abnormal Lab Findings Abnormal Lab Findings: Abnormal Lab Results 07/04/17 Range/Units 05:45 Chloride 109 H (97-106) mmol/L Carbon Dioxide 23.2 L (24-32.6) mmol/L BUN 25 H (6-23) mg/dL Creatinine 1.69 H (0.4-1.4) mg/dL Est GFR (Non-Af Amer) 42 L (60-130) mL/min - Exam Constitutional: Present: No distress, Elderly. Absent: Cooperative ENT Exam: Present: hard of hearing Neck: Present: supple Breasts: Present: Exam deferred Respiratory: Present: normal breath sounds, no respiratory distress Cardiovascular/Chest: Present: normal peripheral pulses, regular rate, rhythm Abdomen: Present: soft, nontender, nondistended /Rectal: Present: Exam deferred Extremity: Present: non-tender, normal inspection Skin Exam: Present: warm/dry, no cyanosis, pallor Assessment/Plan Plan Narrative: 81 year old male admitted with UTI (ruled out) and AMS. has since been diagnosed with pneumonia - on cefepime. mentation has not improved. aggressive with staff overnight, requiring iv ativan. awaiting psych consult. will need placement when ready for discharge - ? dementia unit. - Problems/Diagnosis (1) Altered mental status Problem: Acute Qualifiers: Altered mental status type: disorientation Qualified Code(s): R41.0 - Disorientation, unspecified (2) Urinary tract infection Problem: Acute Qualifiers: Urinary tract infection type: site unspecified Hematuria presence: without hematuria Qualified Code(s): N39.0 - Urinary tract infection, site not specified (3) Discharge planning issues Problem: Acute (4) aggression and agitation Problem: Acute (5) Anemia of chronic disease Problem: Chronic (6) Chronic diastolic (congestive) heart failure Problem: Chronic (7) Dementia Problem: Chronic Qualifiers: Dementia type: Alzheimer's disease Alzheimer's disease onset: late-onset Dementia behavioral disturbance: with behavioral disturbance Qualified Code(s) : G30.1 - Alzheimer's disease with late onset; F02.81 - Dementia in other diseases classified elsewhere with behavioral disturbance (8) HTN (hypertension) Problem: Chronic Qualifiers: Hypertension type: essential hypertension Qualified Code(s): I10 - Essential (primary) hypertension (9) Peripheral arterial disease Problem: Chronic (10) Pulmonary hypertension Problem: Chronic (11) Stage III chronic kidney disease Problem: Chronic (12) COPD (chronic obstructive pulmonary disease) Problem: Chronic Qualifiers: COPD type: unspecified COPD Qualified Code(s): J44.9 - Chronic obstructive pulmonary disease, unspecified (13) Pneumonia Problem: Acute Qualifiers: Laterality: left Lung location: upper lobe of lung
[2017-07-04] MEDS: PANTOPRAZOLE SODIUM 40 MG TABLET.EC PO SCH (07:50)
[2017-07-04] MEDS: LORazepam 2 MG/ML DISP.SYRIN IM PRN (08:22)
[2017-07-04] MEDS: ALBUTEROL SULFATE/IPRATROPIUM 3 ML NEBU IH SCH ×2 (08:22→19:23)
[2017-07-04] MEDS ORDERED: HALOPERIDOL LACTATE 5 MG/ML VIAL IM ONE (10:30)
[2017-07-04] MEDS ORDERED: CEFEPIME HCL 1 GM in DEXTROSE 5 % IN WATER 100 ML IV SCH ×2 (13:30)
[2017-07-04] MEDS: HYDROPHILIC OINTMENT 454 APPL JAR TP SCH ×2 (14:09→22:13)
[2017-07-04] MEDS: amLODIPine BESYLATE 10 MG TABLET PO SCH (14:10)
[2017-07-04] MEDS: FAMOTIDINE 20 MG TABLET PO SCH ×2 (14:10→22:12)
[2017-07-04] MEDS: sulfaSALAzine 500 MG TABLET PO SCH ×2 (14:10→22:12)
[2017-07-04] MEDS: AZITHROMYCIN 250 MG TABLET PO SCH (14:10)
[2017-07-04] MEDS: LORATADINE 10 MG TABLET PO SCH (14:11)
[2017-07-04] MEDS: LOSARTAN POTASSIUM 50 MG TABLET PO SCH (14:11)
[2017-07-04] MEDS: POTASSIUM CHLORIDE 20 MEQ TABLET.SA PO SCH (14:11)
[2017-07-04] MEDS: SENNOSIDES 8.6 MG TABLET PO SCH ×2 (14:11→22:12)
[2017-07-04] MEDS: ACETAMINOPHEN 325 MG TABLET PO SCH ×3 (14:11→18:49)
[2017-07-04] MEDS: PSYLLIUM SEED 1 PACKET PACKET PO SCH (14:11)
[2017-07-04] MEDS: CEFEPIME HCL 1 GM VIAL IM SCH (14:12)
[2017-07-04] MEDS: ENOXAPARIN SODIUM 40 MG/0.4 ML SYRG SC SCH (14:12)
--- NOTE | 2017-07-04 17:26 | CONS ---
HPI - History of Present Illness Allergies/Adverse Reactions: Allergies Penicillins Adverse Reaction (Severe, Verified 05/31/17 11:42) Hives sulfamethoxazole [From Bactrim] Adverse Reaction (Severe, Verified 05/31/17 11: 42) Vomiting trimethoprim [From Bactrim] Adverse Reaction (Severe, Verified 05/31/17 11:42) Vomiting Home Medications: Home Medications Medication Instructions Recorded Last Taken Furosemide [Lasix] 40 mg PO DAILY PRN 05/31/17 Unknown Potassium Chloride [Klor-Con M20] 20 meq PO DAILY 05/31/17 Unknown Acetaminophen [Tylenol] 325 mg PO TID 06/30/17 Unknown Acetaminophen [Tylenol] 500 mg PO Q6H PRN 06/30/17 Unknown sulfaSALAzine [Sulfazine] 500 mg PO BID 06/30/17 Unknown - Patient's Past Medical History Patient History - Medical: Arthritis, Dementia, Renal Disease, UTI'S, Other Patient History - Cardiac/Respiratory: Aneurysm, Coronary Heart Disease, COPD, Hypertension, Peripheral Vascular Disease Patient History - Cancer: No Hx of Cancer Patient History - Surgical Procedures: Cataracts, Other, ENT Patient History - Other: None - Family History Mother Family History - Medical: , Alzheimer's Disease Family History - Cardiac/Respiratory: No pertinent hx Family History - Cancer: No pertinent family hx Father Family History - Medical: Family History - Cardiac/Respiratory: History Unknown Family History - Cancer: Throat - Social History Living Situations: intermediate Abuse History: No History of abuse Psych History: No pertinent hx Does anyone smoke in the home?: No Smoking Status: Former smoker Have you smoked in the past 12 months: No Alcohol Use: none Drug Use: none - Immunizations Immunizations Up to Date: Yes Hx Pneumococcal Vaccination: Yes History of Influenza Vaccine: Yes Procedures AFTER-CATAR DISCISSION (02/25/10) CATARAC PHACOEMULS/ASPIR (06/18/08) CYSTOSCOPY NEC (03/05/15) DORSAL/LAT SLIT PREPUCE (03/05/15) ING HERNIA REP-GRAFT NOS (11/23/11) INSERT LENS AT CATAR EXT (06/18/08) REPAIR SCALP SKIN, EXTERNAL APPROACH (06/17/16) Medications - Medications Current Medications: Current Medications Acetaminophen (Tylenol) 325 mg PO TID TODD Stop: 07/31/17 09:01 Last Admin: 07/04/17 14:13 Dose: Not Given Albuterol/Ipratropium (Duoneb 2.5-0.5mg/3ml Soln) 3 ml IH BIDRT [facility] Stop: 07/31/17 07:01 Last Admin: 07/04/17 08:22 Dose: Not Given Amlodipine Besylate (Norvasc) 10 mg PO DAILY TODD Stop: 07/31/17 09:01 Last Admin: 07/04/17 14:10 Dose: 10 mg Azithromycin (Zithromax) 500 mg PO DAILY TODD PRN Reason: Protocol Stop: 07/06/17 09:01 Last Admin: 07/04/17 14:10 Dose: 500 mg Cefepime HCl (Maxipime) 1 gm IM Q24H TODD Stop: 08/03/17 13:01 Last Admin: 07/04/17 14:12 Dose: 1 gm Enoxaparin Sodium (Lovenox) 40 mg SC Q24H TODD Stop: 07/31/17 15:01 Last Admin: 07/04/17 14:12 Dose: 40 mg Famotidine (Pepcid) 20 mg PO BID TODD Stop: 08/01/17 15:16 Last Admin: 07/04/17 14:10 Dose: 20 mg Dextrose/Sodium Chloride (Dextrose 5%-0.2%Ns) 1,000 mls @ 75 mls/hr IV .[id number] PRN PRN Reason: HYDRATION Stop: 08/02/17 10:28 Last Admin: 07/04/17 01:44 Dose: 75 mls/hr Loratadine (Claritin) 10 mg PO DAILY [facility] Stop: 08/01/17 15:16 Last Admin: 07/04/17 14:11 Dose: 10 mg Lorazepam (Ativan) 1 mg PO TID PRN PRN Reason: Anxiety Stop: 07/31/17 00:32 Last Admin: 07/02/17 16:11 Dose: 1 mg Lorazepam (Ativan) 0.5 mg IV Q1H PRN PRN Reason: Anxiety Stop: 07/31/17 00:37 Last Admin: 07/04/17 03:01 Dose: 0.5 mg Losartan Potassium (Cozaar) 50 mg PO DAILY [facility] Stop: 07/31/17 09:01 Last Admin: 07/04/17 14:11 Dose: 50 mg Multi-Ingredient Ointment (Aquaphilic Ointment) 1 appl TP BID TODD Stop: 07/31/17 09:01 Last Admin: 07/04/17 14:09 Dose: 1 appl Pantoprazole Sodium (Protonix) 40 mg PO DAILY@0700 TODD Stop: 07/31/17 07:01 Last Admin: 07/04/17 07:50 Dose: 40 mg Potassium Chloride (K-Dur) 20 meq PO DAILY TODD Stop: 07/31/17 09:01 Last Admin: 07/04/17 14:11 Dose: 20 meq Psyllium Hydrophilic Mucilloid (Metamucil) 1 each PO DAILY TODD Stop: 07/31/17 09:01 Last Admin: 07/04/17 14:11 Dose: Not Given Senna (Senokot) 8.6 mg PO BID TODD Stop: 07/31/17 09:01 Last Admin: 07/04/17 14:11 Dose: 8.6 mg Sulfasalazine (Azulfidine) 500 mg PO BID TODD Stop: 07/31/17 01:01 Last Admin: 07/04/17 14:10 Dose: 500 mg Physical Examination - Exam Vital Signs: Vital Signs - Last Taken Temp 36.7 C 07/04/17 15:38 Pulse 89 07/04/17 15:38 Resp 20 07/04/17 15:38 BP 132/72 07/04/17 15:38 Pulse Ox 97 07/04/17 15:38 O2 Oxygen Delivery Method Room Air - Results and Findings: Lab/Microbiology results last 24 hrs: Abnormal/Pending Laboratory Last 24 HRS 07/04/17 05:45 Chloride 109 H Carbon Dioxide 23.2 L BUN 25 H Creatinine 1.69 H Est GFR (Non-Af Amer) 42 L
[2017-07-04] MEDS: HALOPERIDOL 1 MG TABLET PO SCH (18:48)
[2017-07-04] MEDS: SERTRALINE HCL 50 MG TABLET PO SCH (18:49)
[2017-07-05 06:13] LABS: Hematocrit 36.1 % (42.0-52.0); Hemoglobin 11.6 gm/dL (13.5-18.0); Mean Corpuscular Hemoglobin 26.7 pg (27-31); Mean Corpuscular Hgb Conc 32.1 g/dl (32-36); Neutrophil # 7.8 K/mm3 (1.3-6.0); Neutrophil % 72.7 % (42-75.0); Platelet Count 247 K/mm3 (150-450); Red Blood Count 4.35 M/mm3 (4.7-6.0); Red Cell Distribution Width 15.2 % (11.5-14.0); White Blood Count 10.7 K/mm3 (4.0-10.5)
--- NOTE | 2017-07-05 06:37 | PN ---
Subjective - Date and Time Seen Date: 07/05/17 Time: 06:31 Subjective Narrative: pt examined this am. Seen by Psychiatry yesterday and started on Zoloft and Haldol. Nursing reports occasional agitation and combativeness with cares. Awaiting placement. Objective - Vitals Vitals: Last Vital Signs Temp 36 C L 07/05/17 02:44 Pulse 65 07/05/17 02:44 Resp 18 07/05/17 02:44 BP 137/57 07/05/17 02:44 Pulse Ox 94 07/05/17 02:44 - Abnormal Lab Findings Abnormal Lab Findings: Abnormal Lab Results 07/05/17 Range/Units 06:12 WBC 10.7 H (4.0-10.5) K/mm3 RBC 4.35 L (4.7-6.0) M/mm3 Hgb 11.6 L (13.5-18.0) gm/dL Hct 36.1 L (42.0-52.0) % MCH 26.7 L (27-31) pg RDW 15.2 H (11.5-14.0) % MPV 11.0 H (6.0-9.5) fl Immature Gran % (Auto) 1.00 H (0.001-0.429) % Immature Gran # (Auto) 0.11 H (0.000-0.0310) K/mm3 Lymphocytes % 9.0 L (20-51) % Monocytes % 13.3 H (0.0-9) % Eosinophils % 3.4 H (0.0-3.0) % Neutrophils # 7.8 H (1.3-6.0) K/mm3 Lymphocytes # 1.0 L (1.5-3.5) k/mm3 Monocytes # 1.4 H (0.0-1.0) k/mm3 - Exam Constitutional: Present: Alert, No distress, Elderly ENT Exam: Present: hard of hearing Neck: Present: full range of motion Breasts: Present: Exam deferred Respiratory: Present: lungs clear, No rales, No wheezing Cardiovascular/Chest: Present: regular rate, rhythm, no edema Abdomen: Present: Normal bowel sounds, soft, nontender /Rectal: Present: Exam deferred Extremity: Present: non-tender, normal inspection, no pedal edema Skin Exam: Present: warm/dry, no cyanosis Lymphatic: Present: no adenopathy Neurologic: Present: alert, disoriented x 3 Appearance: Present: impaired insight Eye contact: Present: compulsive Thoughts: Present: incoherent Assessment/Plan - Problems/Diagnosis (1) Pneumonia Problem: Acute Narrative: On Cefepime. (2) Urinary tract infection Problem: Acute Qualifiers: Urinary tract infection type: site unspecified Hematuria presence: without hematuria Qualified Code(s): N39.0 - Urinary tract infection, site not specified Narrative: No pathogens on urine culture (3) Altered mental status Problem: Acute Qualifiers: Altered mental status type: disorientation Qualified Code(s): R41.0 - Disorientation, unspecified Narrative: Seen by Psychiatry - Started on Zoloft and haldol- Will monitor responses in his behaviour, (4) Discharge planning issues Problem: Acute Narrative: Awaiting placement. (5) Anemia of chronic disease Problem: Chronic (6) Chronic diastolic (congestive) heart failure Problem: Chronic (7) Pneumonia Problem: Acute (8) HTN (hypertension) Problem: Chronic Qualifiers: Hypertension type: essential hypertension Qualified Code(s): I10 - Essential (primary) hypertension (9) COPD (chronic obstructive pulmonary disease) Problem: Chronic Qualifiers: COPD type: unspecified COPD Qualified Code(s): J44.9 - Chronic obstructive pulmonary disease, unspecified
[2017-07-05] MEDS: ALBUTEROL SULFATE/IPRATROPIUM 3 ML NEBU IH SCH ×2 (06:51→18:23)
[2017-07-05] MEDS: HALOPERIDOL 1 MG TABLET PO SCH ×2 (08:07→20:15)
[2017-07-05] MEDS: PANTOPRAZOLE SODIUM 40 MG TABLET.EC PO SCH (08:07)
[2017-07-05] MEDS: sulfaSALAzine 500 MG TABLET PO SCH ×2 (08:07→20:15)
[2017-07-05] MEDS: SERTRALINE HCL 50 MG TABLET PO SCH (08:07)
[2017-07-05] MEDS: HYDROPHILIC OINTMENT 454 APPL JAR TP SCH ×2 (08:07→20:16)
[2017-07-05] MEDS: PSYLLIUM SEED 1 PACKET PACKET PO SCH (08:08)
[2017-07-05] MEDS: ACETAMINOPHEN 325 MG TABLET PO SCH ×3 (08:08→17:14)
[2017-07-05] MEDS: SENNOSIDES 8.6 MG TABLET PO SCH ×2 (08:08→20:17)
[2017-07-05] MEDS: FAMOTIDINE 20 MG TABLET PO SCH ×2 (08:08→20:16)
[2017-07-05] MEDS: amLODIPine BESYLATE 10 MG TABLET PO SCH (08:12)
[2017-07-05] MEDS: LORATADINE 10 MG TABLET PO SCH (08:12)
[2017-07-05] MEDS: AZITHROMYCIN 250 MG TABLET PO SCH (08:12)
[2017-07-05] MEDS: LOSARTAN POTASSIUM 50 MG TABLET PO SCH (08:12)
[2017-07-05] MEDS: POTASSIUM CHLORIDE 20 MEQ TABLET.SA PO SCH (08:12)
[2017-07-05] MEDS: ENOXAPARIN SODIUM 40 MG/0.4 ML SYRG SC SCH (14:08)
[2017-07-05] MEDS: CEFEPIME HCL 1 GM VIAL IM SCH (14:21)
[2017-07-05] MEDS: HALOPERIDOL LACTATE 5 MG/ML VIAL IM PRN (14:24)
[2017-07-05] MEDS: LORazepam 1 MG TABLET PO PRN (19:14)
[2017-07-06] MEDS: ALBUTEROL SULFATE/IPRATROPIUM 3 ML NEBU IH SCH ×2 (06:30→19:04)
[2017-07-06] MEDS: PANTOPRAZOLE SODIUM 40 MG TABLET.EC PO SCH (06:45)
[2017-07-06] MEDS: HYDROPHILIC OINTMENT 454 APPL JAR TP SCH ×2 (09:05→20:17)
[2017-07-06] MEDS: sulfaSALAzine 500 MG TABLET PO SCH ×2 (09:05→20:17)
[2017-07-06] MEDS: amLODIPine BESYLATE 10 MG TABLET PO SCH (09:06)
[2017-07-06] MEDS: HALOPERIDOL 1 MG TABLET PO SCH ×3 (09:06→23:04)
[2017-07-06] MEDS: LORATADINE 10 MG TABLET PO SCH (09:06)
[2017-07-06] MEDS: POTASSIUM CHLORIDE 20 MEQ TABLET.SA PO SCH (09:06)
[2017-07-06] MEDS: LOSARTAN POTASSIUM 50 MG TABLET PO SCH (09:06)
[2017-07-06] MEDS: PSYLLIUM SEED 1 PACKET PACKET PO SCH (09:06)
[2017-07-06] MEDS: AZITHROMYCIN 250 MG TABLET PO SCH (09:07)
[2017-07-06] MEDS: FAMOTIDINE 20 MG TABLET PO SCH ×2 (09:07→20:17)
[2017-07-06] MEDS: SERTRALINE HCL 50 MG TABLET PO SCH (09:07)
[2017-07-06] MEDS: SENNOSIDES 8.6 MG TABLET PO SCH ×2 (09:07→20:17)
[2017-07-06] MEDS: LORazepam 1 MG TABLET PO PRN (15:34)
--- NOTE | 2017-07-06 15:35 | PN ---
Subjective - Date and Time Seen Date: 07/06/17 Time: 15:32 Subjective Narrative: The patient is sitting on the recliner. Son is with him. The son feels patient is doing better. He is going to [facility] to see if he can find placemnt ther for his father. Objective - Review of Systems Generalized/Overall Review: Reports: No Symptoms Reported EENTM: Reports: Blurred Vision Respiratory: Denies: Cough, Shortness of Breath Cardiac: Denies: Chest Pain, Edema, Palpitations Abdominal: Denies: Nausea, Vomiting Genitourinary Symptoms: Denies: Urgency, Frequency Musculoskeletal Complaints: Reports: Joint Pain - Vitals Vitals: Last Vital Signs Temp 36.5 C 07/06/17 15:00 Pulse 110 H 07/06/17 15:00 Resp 18 07/06/17 15:00 BP 98/81 07/06/17 15:00 Pulse Ox 95 07/06/17 15:00 - Exam Constitutional: Present: Alert, Oriented x3, Cooperative ENT Exam: Present: hard of hearing Neck: Present: supple Breasts: Present: Exam deferred Respiratory: Present: decreased breath sounds, No rales, No wheezing Cardiovascular/Chest: Present: regular rate, rhythm, no JVD, no murmur Abdomen: Present: Normal bowel sounds, soft, nontender, nondistended Extremity: Present: no pedal edema, no calf tenderness Assessment/Plan - Problems/Diagnosis (1) Altered mental status Problem: Acute Qualifiers: Altered mental status type: disorientation Qualified Code(s): R41.0 - Disorientation, unspecified Narrative: dementia with behavioral problems (2) Behavior concern in adult Problem: Acute Narrative: on haldol and Zoloft. (3) CVA (cerebral vascular accident) Problem: Chronic (4) COPD (chronic obstructive pulmonary disease) Problem: Chronic Qualifiers: COPD type: unspecified COPD Qualified Code(s): J44.9 - Chronic obstructive pulmonary disease, unspecified (5) Stage III chronic kidney disease Problem: Chronic (6) HTN (hypertension) Problem: Chronic Qualifiers: Hypertension type: essential hypertension Qualified Code(s): I10 - Essential (primary) hypertension
[2017-07-06] MEDS: ENOXAPARIN SODIUM 40 MG/0.4 ML SYRG SC SCH (15:40)
[2017-07-06] MEDS: ACETAMINOPHEN 325 MG TABLET PO SCH ×2 (15:40→19:32)
[2017-07-07] MEDS: LORazepam 1 MG TABLET PO PRN (01:13)
[2017-07-07] MEDS: ALBUTEROL SULFATE/IPRATROPIUM 3 ML NEBU IH SCH ×2 (06:22→18:33)
[2017-07-07] MEDS: HALOPERIDOL 1 MG TABLET PO SCH ×2 (10:23→20:07)
[2017-07-07] MEDS: sulfaSALAzine 500 MG TABLET PO SCH ×2 (10:24→20:07)
[2017-07-07] MEDS: SENNOSIDES 8.6 MG TABLET PO SCH ×2 (10:24→20:07)
[2017-07-07] MEDS: ACETAMINOPHEN 325 MG TABLET PO SCH ×3 (10:24→16:00)
[2017-07-07] MEDS: FAMOTIDINE 20 MG TABLET PO SCH ×2 (10:25→20:07)
[2017-07-07] MEDS: POTASSIUM CHLORIDE 20 MEQ TABLET.SA PO SCH (10:26)
[2017-07-07] MEDS: SERTRALINE HCL 50 MG TABLET PO SCH (10:26)
[2017-07-07] MEDS: LOSARTAN POTASSIUM 50 MG TABLET PO SCH (10:26)
[2017-07-07] MEDS: PANTOPRAZOLE SODIUM 40 MG TABLET.EC PO SCH (10:26)
[2017-07-07] MEDS: LORATADINE 10 MG TABLET PO SCH (10:26)
[2017-07-07] MEDS: PSYLLIUM SEED 1 PACKET PACKET PO SCH (10:27)
[2017-07-07] MEDS: amLODIPine BESYLATE 10 MG TABLET PO SCH (10:27)
[2017-07-07] MEDS: HYDROPHILIC OINTMENT 454 APPL JAR TP SCH ×2 (15:21→20:07)
[2017-07-07] MEDS: ENOXAPARIN SODIUM 40 MG/0.4 ML SYRG SC SCH (15:59)
--- NOTE | 2017-07-07 17:30 | PN ---
Subjective - Date and Time Seen Date: 07/07/17 Time: 17:25 Subjective Narrative: Patient is behavior is well controlled. He is carrying a normal conversation with me. Objective - Review of Systems Generalized/Overall Review: Denies: Weakness, Chills, Fever EENTM: Reports: Blurred Vision Respiratory: Denies: Cough, Shortness of Breath Cardiac: Denies: Chest Pain, Palpitations Abdominal: Denies: Nausea, Vomiting Genitourinary Symptoms: Denies: Urgency, Frequency - Vitals Vitals: Last Vital Signs Temp 36.5 C 07/07/17 09:26 Pulse 72 07/07/17 09:26 Resp 18 07/07/17 09:26 BP 122/78 07/07/17 09:26 Pulse Ox 95 07/07/17 09:26 - Exam Constitutional: Present: Alert - AAO x 2, Cooperative, Elderly ENT Exam: Present: hard of hearing Neck: Present: supple Respiratory: Present: decreased breath sounds, No rales, No wheezing Cardiovascular/Chest: Present: no JVD, no murmur, irregularly irregular Abdomen: Present: Normal bowel sounds, soft, nontender, nondistended Extremity: Present: no calf tenderness, pedal edema Assessment/Plan - Problems/Diagnosis (1) Altered mental status Problem: Acute Qualifiers: Altered mental status type: disorientation Qualified Code(s): R41.0 - Disorientation, unspecified Narrative: improved significantly. awaiting NH placement (2) Behavior concern in adult Problem: Acute Narrative: controlled (3) CVA (cerebral vascular accident) Problem: Chronic (4) COPD (chronic obstructive pulmonary disease) Problem: Chronic Qualifiers: COPD type: unspecified COPD Qualified Code(s): J44.9 - Chronic obstructive pulmonary disease, unspecified (5) Stage III chronic kidney disease Problem: Chronic (6) HTN (hypertension) Problem: Chronic Qualifiers: Hypertension type: essential hypertension Qualified Code(s): I10 - Essential (primary) hypertension
[2017-07-08] MEDS: ALBUTEROL SULFATE/IPRATROPIUM 3 ML NEBU IH SCH (06:22)
[2017-07-08] MEDS: PANTOPRAZOLE SODIUM 40 MG TABLET.EC PO SCH (07:36)
[2017-07-08] MEDS: HYDROPHILIC OINTMENT 454 APPL JAR TP SCH ×2 (09:46→21:29)
[2017-07-08] MEDS: HALOPERIDOL 1 MG TABLET PO SCH ×3 (09:49→21:30)
[2017-07-08] MEDS: NEOMYCIN/BACITRACIN/POLYMYXINB 15 APPL TUBE TP PRN (10:27)
[2017-07-08] MEDS: NYSTATIN 30 APPL TUBE TP SCH ×2 (10:27→21:30)
[2017-07-08] MEDS: ACETAMINOPHEN 325 MG TABLET PO SCH ×3 (11:10→16:31)
[2017-07-08] MEDS: SENNOSIDES 8.6 MG TABLET PO SCH ×3 (11:17→21:30)
[2017-07-08] MEDS: PSYLLIUM SEED 1 PACKET PACKET PO SCH (11:17)
[2017-07-08] MEDS: amLODIPine BESYLATE 10 MG TABLET PO SCH (11:18)
[2017-07-08] MEDS: SERTRALINE HCL 50 MG TABLET PO SCH (11:18)
[2017-07-08] MEDS: FAMOTIDINE 20 MG TABLET PO SCH ×3 (11:18→21:30)
[2017-07-08] MEDS: LOSARTAN POTASSIUM 50 MG TABLET PO SCH (11:18)
[2017-07-08] MEDS: LORATADINE 10 MG TABLET PO SCH (11:18)
[2017-07-08] MEDS: sulfaSALAzine 500 MG TABLET PO SCH ×3 (11:19→21:30)
[2017-07-08] MEDS: POTASSIUM CHLORIDE 20 MEQ TABLET.SA PO SCH (11:19)
--- NOTE | 2017-07-08 11:21 | PN ---
Subjective - Date and Time Seen Date: 07/08/17 Time: 11:21 Subjective Narrative: patient has been combative this morning. still awaiting NH placement. Objective - Review of Systems Generalized/Overall Review: Reports: No Symptoms Reported EENTM: Reports: No Symptoms Reported Respiratory: Reports: No Symptoms Reported Cardiac: Reports: No Symptoms Reported Abdominal: Reports: No Symptoms Reported Genitourinary Symptoms: Reports: No Symptoms Reported Musculoskeletal Complaints: Reports: No Symptoms Reported Misc: All systems neg except as marked - the patient has been combative and has not answered questions - Vitals Vitals: Last Vital Signs Temp 36.6 C 07/08/17 07:44 Pulse 94 07/08/17 07:44 Resp 18 07/08/17 07:44 BP 144/62 07/08/17 07:44 Pulse Ox 96 07/08/17 07:44 - Exam Constitutional: Present: Alert - AAO x 1, Elderly ENT Exam: Present: hard of hearing Neck: Present: supple Respiratory: Present: decreased breath sounds, No rales, No wheezing Cardiovascular/Chest: Present: no JVD, no murmur, irregularly irregular Abdomen: Present: Normal bowel sounds, soft, nontender, nondistended Extremity: Present: no pedal edema, no calf tenderness Assessment/Plan - Problems/Diagnosis (1) Altered mental status Problem: Acute Qualifiers: Altered mental status type: disorientation Qualified Code(s): R41.0 - Disorientation, unspecified Narrative: dementia with behavioral changes. awaiting NH placement. on haldol and Zoloft per psychiatry. (2) Behavior concern in adult Problem: Acute (3) CVA (cerebral vascular accident) Problem: Chronic (4) COPD (chronic obstructive pulmonary disease) Problem: Chronic Qualifiers: COPD type: unspecified COPD Qualified Code(s): J44.9 - Chronic obstructive pulmonary disease, unspecified (5) Stage III chronic kidney disease Problem: Chronic (6) HTN (hypertension) Problem: Chronic Qualifiers: Hypertension type: essential hypertension Qualified Code(s): I10 - Essential (primary) hypertension
[2017-07-08] MEDS ORDERED: ALBUTEROL SULFATE/IPRATROPIUM 3 ML NEBU IH PRN (15:01)
[2017-07-08] MEDS: ENOXAPARIN SODIUM 40 MG/0.4 ML SYRG SC SCH (15:37)
[2017-07-08] MEDS: LORazepam 2 MG/ML DISP.SYRIN IM PRN (22:08)
[2017-07-09] MEDS: HALOPERIDOL 1 MG TABLET PO SCH ×2 (09:09→20:16)
[2017-07-09] MEDS: PANTOPRAZOLE SODIUM 40 MG TABLET.EC PO SCH (09:09)
[2017-07-09] MEDS: HYDROPHILIC OINTMENT 454 APPL JAR TP SCH ×2 (09:09→20:18)
[2017-07-09] MEDS: POTASSIUM CHLORIDE 20 MEQ TABLET.SA PO SCH (09:10)
[2017-07-09] MEDS: NYSTATIN 30 APPL TUBE TP SCH ×2 (09:10→20:18)
[2017-07-09] MEDS: LOSARTAN POTASSIUM 50 MG TABLET PO SCH (09:10)
[2017-07-09] MEDS: sulfaSALAzine 500 MG TABLET PO SCH ×2 (09:10→20:17)
[2017-07-09] MEDS: LORATADINE 10 MG TABLET PO SCH (09:10)
[2017-07-09] MEDS: SENNOSIDES 8.6 MG TABLET PO SCH ×2 (09:11→20:16)
[2017-07-09] MEDS: FAMOTIDINE 20 MG TABLET PO SCH ×2 (09:11→20:17)
[2017-07-09] MEDS: SERTRALINE HCL 50 MG TABLET PO SCH (09:11)
[2017-07-09] MEDS: NEOMYCIN/BACITRACIN/POLYMYXINB 15 APPL TUBE TP PRN (09:11)
[2017-07-09] MEDS: ACETAMINOPHEN 325 MG TABLET PO SCH ×3 (09:11→16:12)
[2017-07-09] MEDS: PSYLLIUM SEED 1 PACKET PACKET PO SCH (09:12)
[2017-07-09] MEDS: amLODIPine BESYLATE 10 MG TABLET PO SCH (09:12)
--- NOTE | 2017-07-09 10:56 | PN ---
Subjective - Date and Time Seen Date: 07/09/17 Time: 10:53 Subjective Narrative: Patient is on recliner - cooperative. Objective - Review of Systems Generalized/Overall Review: Reports: No Symptoms Reported EENTM: Reports: No Symptoms Reported Respiratory: Reports: No Symptoms Reported Cardiac: Reports: No Symptoms Reported Abdominal: Reports: No Symptoms Reported Genitourinary Symptoms: Reports: No Symptoms Reported Musculoskeletal Complaints: Reports: No Symptoms Reported Neurological: Reports: No Symptoms Reported Skin: Reports: No Symptoms Reported Endocrine: Reports: No Symptoms Reported Misc: All systems neg except as marked - Patient follows commands but does not respond to my question - Vitals Vitals: Last Vital Signs Temp 36.6 C 07/09/17 09:36 Pulse 82 07/09/17 09:36 Resp 18 07/09/17 09:36 BP 146/77 07/09/17 09:36 Pulse Ox 94 07/09/17 09:36 - Exam Constitutional: Present: Alert, Elderly ENT Exam: Present: hard of hearing Neck: Present: supple Breasts: Present: Exam deferred Respiratory: Present: decreased breath sounds, No rales, No wheezing Cardiovascular/Chest: Present: no JVD, no murmur, irregularly irregular Abdomen: Present: Normal bowel sounds, soft, nontender, nondistended Extremity: Present: no pedal edema, no calf tenderness Assessment/Plan - Problems/Diagnosis (1) Altered mental status Problem: Acute Qualifiers: Altered mental status type: disorientation Qualified Code(s): R41.0 - Disorientation, unspecified Narrative: dementia with on and off behavioral problems (2) Behavior concern in adult Problem: Acute (3) CVA (cerebral vascular accident) Problem: Chronic (4) COPD (chronic obstructive pulmonary disease) Problem: Chronic Qualifiers: COPD type: unspecified COPD Qualified Code(s): J44.9 - Chronic obstructive pulmonary disease, unspecified (5) Stage III chronic kidney disease Problem: Chronic (6) HTN (hypertension) Problem: Chronic Qualifiers: Hypertension type: essential hypertension Qualified Code(s): I10 - Essential (primary) hypertension
[2017-07-09] MEDS: ENOXAPARIN SODIUM 40 MG/0.4 ML SYRG SC SCH (14:39)
[2017-07-10] MEDS: LORazepam 2 MG/ML DISP.SYRIN IM PRN (00:45)
[2017-07-10 05:42] LABS: Hematocrit 35.3 % (42.0-52.0); Hemoglobin 10.8 gm/dL (13.5-18.0); Mean Cell Volume 87.2 fl (78-100); Mean Corpuscular Hemoglobin 26.7 pg (27-31); Mean Corpuscular Hgb Conc 30.6 g/dl (32-36); Mean Platelet Volume 11.3 fl (6.0-9.5); Neutrophil # 7.2 K/mm3 (1.3-6.0); Neutrophil % 76.8 % (42-75.0); Platelet Count 217 K/mm3 (150-450); Red Blood Count 4.05 M/mm3 (4.7-6.0); Red Cell Distribution Width 15.6 % (11.5-14.0); White Blood Count 9.4 K/mm3 (4.0-10.5)
[2017-07-10 05:50] LABS: Anion Gap 15.7 mmol/L (6.8-13.8); BUN/Creatinine Ratio 15.6 (9.0-21.6); Calcium * 8.9 mg/dL (7.9-10.9); Carbon Dioxide 19.5 mmol/L (24-32.6); Estimated Creat Clear 31.2; Potassium 4.2 mmol/L (3.4-4.6)
[2017-07-10] MEDS: LORATADINE 10 MG TABLET PO SCH (09:40)
[2017-07-10] MEDS: sulfaSALAzine 500 MG TABLET PO SCH ×2 (09:40→21:25)
[2017-07-10] MEDS: HYDROPHILIC OINTMENT 454 APPL JAR TP SCH ×2 (09:40→21:32)
[2017-07-10] MEDS: PANTOPRAZOLE SODIUM 40 MG TABLET.EC PO SCH (09:40)
[2017-07-10] MEDS: PSYLLIUM SEED 1 PACKET PACKET PO SCH (09:41)
[2017-07-10] MEDS: POTASSIUM CHLORIDE 20 MEQ TABLET.SA PO SCH (09:41)
[2017-07-10] MEDS: HALOPERIDOL 1 MG TABLET PO SCH ×2 (09:41→21:27)
[2017-07-10] MEDS: FAMOTIDINE 20 MG TABLET PO SCH ×2 (09:42→21:26)
[2017-07-10] MEDS: NYSTATIN 30 APPL TUBE TP SCH ×2 (09:42→21:32)
[2017-07-10] MEDS: SENNOSIDES 8.6 MG TABLET PO SCH ×2 (09:42→21:26)
[2017-07-10] MEDS: SERTRALINE HCL 50 MG TABLET PO SCH (09:42)
--- NOTE | 2017-07-10 10:05 | PN ---
Subjective - Date and Time Seen Date: 07/10/17 Time: 10:02 Subjective Narrative: Eryn is eating breakfast and is cooperative. Still awaiting NH placement. Objective - Review of Systems Generalized/Overall Review: Denies: Chills, Fever EENTM: Reports: No Symptoms Reported Respiratory: Denies: Shortness of Breath Cardiac: Denies: Chest Pain Abdominal: Denies: Nausea, Vomiting Genitourinary Symptoms: Denies: Frequency Musculoskeletal Complaints: Reports: Joint Pain - Vitals Vitals: Last Vital Signs Temp 36.6 C 07/10/17 01:00 Pulse 92 07/10/17 01:00 Resp 20 07/10/17 01:00 BP 150/79 07/10/17 01:00 Pulse Ox 96 07/10/17 01:00 - Abnormal Lab Findings Abnormal Lab Findings: Abnormal Lab Results 07/10/17 07/10/17 Range/Units 05:10 05:10 RBC 4.05 L (4.7-6.0) M/mm3 Hgb 10.8 L (13.5-18.0) gm/dL Hct 35.3 L (42.0-52.0) % MCH 26.7 L (27-31) pg MCHC 30.6 L (32-36) g/dl RDW 15.6 H (11.5-14.0) % MPV 11.3 H (6.0-9.5) fl Immature Gran % (Auto) 1.00 H (0.001-0.429) % Immature Gran # (Auto) 0.09 H (0.000-0.0310) K/mm3 Neutrophils % 76.8 H (42-75.0) % Lymphocytes % 7.4 L (20-51) % Monocytes % 10.9 H (0.0-9) % Eosinophils % 3.3 H (0.0-3.0) % Neutrophils # 7.2 H (1.3-6.0) K/mm3 Lymphocytes # 0.7 L (1.5-3.5) k/mm3 Chloride 109 H (97-106) mmol/L Carbon Dioxide 19.5 L (24-32.6) mmol/L Anion Gap 15.7 H (6.8-13.8) mmol/L BUN 30 H (6-23) mg/dL Creatinine 1.92 H (0.4-1.4) mg/dL Est GFR (Non-Af Amer) 36 L (60-130) mL/min - Exam Constitutional: Present: Alert, Oriented x3, Cooperative ENT Exam: Present: hearing grossly normal Neck: Present: supple Respiratory: Present: decreased breath sounds, No rales, No wheezing Cardiovascular/Chest: Present: no JVD, no murmur, irregularly irregular Abdomen: Present: Normal bowel sounds, soft, nontender, nondistended Extremity: Present: no calf tenderness, pedal edema Assessment/Plan - Problems/Diagnosis (1) Altered mental status Problem: Acute Qualifiers: Altered mental status type: disorientation Qualified Code(s): R41.0 - Disorientation, unspecified (2) Behavior concern in adult Problem: Acute (3) CVA (cerebral vascular accident) Problem: Chronic (4) COPD (chronic obstructive pulmonary disease) Problem: Chronic Qualifiers: COPD type: unspecified COPD Qualified Code(s): J44.9 - Chronic obstructive pulmonary disease, unspecified (5) Stage III chronic kidney disease Problem: Chronic (6) HTN (hypertension) Problem: Chronic Qualifiers: Hypertension type: essential hypertension Qualified Code(s): I10 - Essential (primary) hypertension
[2017-07-10] MEDS: amLODIPine BESYLATE 10 MG TABLET PO SCH (10:17)
[2017-07-10] MEDS: LOSARTAN POTASSIUM 50 MG TABLET PO SCH (10:17)
[2017-07-10] MEDS: ACETAMINOPHEN 325 MG TABLET PO SCH ×3 (10:17→16:06)
[2017-07-10] MEDS: ENOXAPARIN SODIUM 40 MG/0.4 ML SYRG SC SCH (14:25)
[2017-07-11] MEDS: PANTOPRAZOLE SODIUM 40 MG TABLET.EC PO SCH (07:45)
--- NOTE | 2017-07-11 10:29 | PN ---
Subjective - Date and Time Seen Date: 07/11/17 Time: 10:28 Subjective Narrative: Watching TV. Cooperative. Says he feels good. Awaiting NH placement. Objective - Review of Systems Generalized/Overall Review: Reports: Weakness EENTM: Reports: No Symptoms Reported Respiratory: Denies: Cough, Shortness of Breath Cardiac: Denies: Chest Pain, Palpitations Abdominal: Denies: Nausea, Vomiting Genitourinary Symptoms: Denies: Urgency, Frequency Musculoskeletal Complaints: Reports: Joint Pain - Vitals Vitals: Last Vital Signs Temp 36.4 C L 07/11/17 07:49 Pulse 87 07/11/17 07:49 Resp 18 07/11/17 07:49 BP 127/43 07/11/17 07:49 Pulse Ox 96 07/11/17 07:49 Assessment/Plan - Problems/Diagnosis (1) Altered mental status Problem: Acute Qualifiers: Altered mental status type: disorientation Qualified Code(s): R41.0 - Disorientation, unspecified Narrative: dementia with behavioral changes (2) Behavior concern in adult Problem: Acute (3) CVA (cerebral vascular accident) Problem: Chronic (4) COPD (chronic obstructive pulmonary disease) Problem: Chronic Qualifiers: COPD type: unspecified COPD Qualified Code(s): J44.9 - Chronic obstructive pulmonary disease, unspecified (5) Stage III chronic kidney disease Problem: Chronic (6) HTN (hypertension) Problem: Chronic Qualifiers: Hypertension type: essential hypertension Qualified Code(s): I10 - Essential (primary) hypertension
[2017-07-11] MEDS: HYDROPHILIC OINTMENT 454 APPL JAR TP SCH (10:41)
[2017-07-11] MEDS: NYSTATIN 30 APPL TUBE TP SCH ×2 (10:41→21:27)
[2017-07-11] MEDS: sulfaSALAzine 500 MG TABLET PO SCH ×2 (10:44→21:28)
[2017-07-11] MEDS: SERTRALINE HCL 50 MG TABLET PO SCH (10:44)
[2017-07-11] MEDS: POTASSIUM CHLORIDE 20 MEQ TABLET.SA PO SCH (10:44)
[2017-07-11] MEDS: PSYLLIUM SEED 1 PACKET PACKET PO SCH (10:44)
[2017-07-11] MEDS: LOSARTAN POTASSIUM 50 MG TABLET PO SCH (10:44)
[2017-07-11] MEDS: amLODIPine BESYLATE 10 MG TABLET PO SCH (10:44)
[2017-07-11] MEDS: FAMOTIDINE 20 MG TABLET PO SCH ×2 (10:45→21:28)
[2017-07-11] MEDS: ACETAMINOPHEN 325 MG TABLET PO SCH ×3 (10:45→18:00)
[2017-07-11] MEDS: SENNOSIDES 8.6 MG TABLET PO SCH ×2 (10:45→21:29)
[2017-07-11] MEDS: HALOPERIDOL 1 MG TABLET PO SCH ×2 (10:45→21:28)
[2017-07-11] MEDS: LORATADINE 10 MG TABLET PO SCH (10:45)
[2017-07-11] MEDS: ENOXAPARIN SODIUM 40 MG/0.4 ML SYRG SC SCH (15:37)
[2017-07-12] MEDS: HYDROPHILIC OINTMENT 454 APPL JAR TP SCH ×3 (00:11→20:24)
[2017-07-12] MEDS: LORazepam 2 MG/ML DISP.SYRIN IM PRN (01:44)
--- NOTE | 2017-07-12 09:55 | PN ---
Subjective - Date and Time Seen Date: 07/12/17 Time: 09:51 Subjective Narrative: Patient has on and off behavioral outburst. Will get follow up Psych consult. Objective - Review of Systems Generalized/Overall Review: Reports: No Symptoms Reported EENTM: Reports: No Symptoms Reported Respiratory: Reports: No Symptoms Reported Cardiac: Reports: No Symptoms Reported Abdominal: Reports: No Symptoms Reported Genitourinary Symptoms: Reports: No Symptoms Reported Musculoskeletal Complaints: Reports: No Symptoms Reported Neurological: Reports: No Symptoms Reported Skin: Reports: No Symptoms Reported Endocrine: Reports: No Symptoms Reported Misc: All systems neg except as marked - ROS is unreliable. - Vitals Vitals: Last Vital Signs Temp 37 C 07/12/17 08:38 Pulse 73 07/12/17 08:38 Resp 16 07/12/17 08:38 BP 125/64 07/12/17 08:38 Pulse Ox 96 07/12/17 08:38 - Exam Constitutional: Present: Alert - AAO x 1, Elderly ENT Exam: Present: hard of hearing Neck: Present: supple Respiratory: Present: decreased breath sounds, No rales, No wheezing Cardiovascular/Chest: Present: no JVD, no murmur, irregularly irregular Abdomen: Present: Normal bowel sounds, soft, nontender, nondistended Extremity: Present: no calf tenderness, pedal edema Assessment/Plan - Problems/Diagnosis (1) Altered mental status Problem: Acute Qualifiers: Altered mental status type: disorientation Qualified Code(s): R41.0 - Disorientation, unspecified Narrative: dementia with behavioral changes. on Haldol and Zoloft per Psych. (2) Behavior concern in adult Problem: Acute Narrative: will get follow up consult with Psych. (3) CVA (cerebral vascular accident) Problem: Chronic (4) COPD (chronic obstructive pulmonary disease) Problem: Chronic Qualifiers: COPD type: unspecified COPD Qualified Code(s): J44.9 - Chronic obstructive pulmonary disease, unspecified (5) Stage III chronic kidney disease Problem: Chronic (6) HTN (hypertension) Problem: Chronic Qualifiers: Hypertension type: essential hypertension Qualified Code(s): I10 - Essential (primary) hypertension
[2017-07-12] MEDS: sulfaSALAzine 500 MG TABLET PO SCH ×2 (10:57→20:27)
[2017-07-12] MEDS: HALOPERIDOL 1 MG TABLET PO SCH ×3 (10:57→20:27)
[2017-07-12] MEDS: SERTRALINE HCL 50 MG TABLET PO SCH (10:57)
[2017-07-12] MEDS: POTASSIUM CHLORIDE 20 MEQ TABLET.SA PO SCH (10:57)
[2017-07-12] MEDS: PANTOPRAZOLE SODIUM 40 MG TABLET.EC PO SCH (10:58)
[2017-07-12] MEDS: LOSARTAN POTASSIUM 50 MG TABLET PO SCH (10:58)
[2017-07-12] MEDS: FAMOTIDINE 20 MG TABLET PO SCH ×2 (10:58→20:27)
[2017-07-12] MEDS: amLODIPine BESYLATE 10 MG TABLET PO SCH (10:58)
[2017-07-12] MEDS: LORATADINE 10 MG TABLET PO SCH (10:58)
[2017-07-12] MEDS: SENNOSIDES 8.6 MG TABLET PO SCH ×2 (10:59→20:27)
[2017-07-12] MEDS: NYSTATIN 30 APPL TUBE TP SCH ×2 (10:59→20:25)
[2017-07-12] MEDS: ACETAMINOPHEN 325 MG TABLET PO SCH ×3 (10:59→17:26)
[2017-07-12] MEDS: PSYLLIUM SEED 1 PACKET PACKET PO SCH (10:59)
[2017-07-12] MEDS: ENOXAPARIN SODIUM 40 MG/0.4 ML SYRG SC SCH (14:34)
--- NOTE | 2017-07-12 16:42 | PN ---
Subjective - Date and Time Seen Date: 07/12/17 Time: 11:30 Subjective Narrative: Patient awake and sitting in recliner at bedside. Is alert but disoriented to place and time. Is cooperative and pleasant. Objective Objective Narrative: Discussed patient's behaviors with staff. His behaviors have greatly improved since starting Haldol but continues to have some mild sun-downing after 5 pm with occassional mild agitation during the night. I feel that these behaviors would be improved in a [facility] environment because he is bored. Due to limited vision and hearing, there is not much to do while admitted to keep him occupied. Staff engage in conversation and take him out of room when time and staffing allows but he can't be out of room unsupervised due to the nature of the unit. I feel that he would benefit from a [facility] care setting, especially since aggression is resolved and minor agitation associated with normal progression of dementia is improved with po Haldol and may improve further with increased socialization. - Review of Systems Generalized/Overall Review: Reports: No Symptoms Reported Neurological: Reports: Pre-existing Deficit - Vitals Vitals: Last Vital Signs Temp 37 C 07/12/17 09:00 Pulse 73 07/12/17 10:58 Resp 16 07/12/17 09:00 BP 125/64 07/12/17 10:58 Pulse Ox 73 L 07/12/17 09:00 - Exam Constitutional: Present: Alert, Cooperative, No distress, Elderly Thoughts: Present: other - Intermittent confusion. Assessment/Plan Plan Narrative: Will increase Haloperidol to 2 mg three times a day. Await [facility] placement, patient would benefit from increased socialization in a [facility] care setting. - Problems/Diagnosis (1) Dementia Problem: Chronic Qualifiers: Dementia type: Alzheimer's disease Alzheimer's disease onset: late-onset Dementia behavioral disturbance: with behavioral disturbance Qualified Code(s) : G30.1 - Alzheimer's disease with late onset; F02.81 - Dementia in other diseases classified elsewhere with behavioral disturbance
[2017-07-12] MEDS: LORazepam 1 MG TABLET PO PRN (22:09)
[2017-07-13] MEDS: PANTOPRAZOLE SODIUM 40 MG TABLET.EC PO SCH (07:33)
--- NOTE | 2017-07-13 08:14 | PN ---
Progess Note - Interim Narrative: 07/13/17 08:13 awaiting NH placement. Psyc came in and adjusted his haldol. He made the OK sign sign when asked how he was doing this morning.
[2017-07-13] MEDS: HYDROPHILIC OINTMENT 454 APPL JAR TP SCH ×2 (09:36→20:03)
[2017-07-13] MEDS: sulfaSALAzine 500 MG TABLET PO SCH ×2 (09:36→20:03)
[2017-07-13] MEDS: ACETAMINOPHEN 325 MG TABLET PO SCH ×3 (09:36→16:39)
[2017-07-13] MEDS: LORATADINE 10 MG TABLET PO SCH (09:37)
[2017-07-13] MEDS: HALOPERIDOL 1 MG TABLET PO SCH ×3 (09:37→20:04)
[2017-07-13] MEDS: POTASSIUM CHLORIDE 20 MEQ TABLET.SA PO SCH (09:37)
[2017-07-13] MEDS: NYSTATIN 30 APPL TUBE TP SCH ×2 (09:38→20:04)
[2017-07-13] MEDS: FAMOTIDINE 20 MG TABLET PO SCH ×2 (09:38→20:04)
[2017-07-13] MEDS: PSYLLIUM SEED 1 PACKET PACKET PO SCH (09:38)
[2017-07-13] MEDS: amLODIPine BESYLATE 10 MG TABLET PO SCH (09:39)
[2017-07-13] MEDS: SERTRALINE HCL 50 MG TABLET PO SCH (09:39)
[2017-07-13] MEDS: LOSARTAN POTASSIUM 50 MG TABLET PO SCH (09:39)
[2017-07-13] MEDS: SENNOSIDES 8.6 MG TABLET PO SCH ×2 (09:41→20:04)
[2017-07-13] MEDS: ENOXAPARIN SODIUM 40 MG/0.4 ML SYRG SC SCH (14:41)
--- NOTE | 2017-07-13 15:00 | PN ---
Subjective - Date and Time Seen Date: 07/13/17 Time: 14:59 Subjective Narrative: awaiting NH placement. Psych came in and adjusted his haldol. He made the OK sign sign when asked how he was doing this morning. Objective - Review of Systems Generalized/Overall Review: Reports: No Symptoms Reported EENTM: Reports: No Symptoms Reported Respiratory: Reports: No Symptoms Reported Cardiac: Reports: No Symptoms Reported Abdominal: Reports: No Symptoms Reported Genitourinary Symptoms: Reports: No Symptoms Reported Musculoskeletal Complaints: Reports: No Symptoms Reported Neurological: Reports: No Symptoms Reported Skin: Reports: No Symptoms Reported Endocrine: Reports: No Symptoms Reported Misc: All systems neg except as marked - Unreliable due to his mental status - Vitals Vitals: Last Vital Signs Temp 36.7 C 07/13/17 09:00 Pulse 80 07/13/17 09:39 Resp 18 07/13/17 09:00 BP 112/65 07/13/17 09:39 Pulse Ox 97 07/13/17 09:00 - Exam Constitutional: Present: Alert - AAO x 1, Cooperative, Elderly ENT Exam: Present: hard of hearing Neck: Present: supple Respiratory: Present: normal breath sounds, No rales, No wheezing Cardiovascular/Chest: Present: no JVD, no murmur, irregularly irregular Abdomen: Present: Normal bowel sounds, soft, nontender, nondistended Extremity: Present: no calf tenderness, pedal edema Assessment/Plan Plan Narrative: awaiting NH placement. Psych input appreciated. - Problems/Diagnosis (1) Dementia Problem: Chronic Qualifiers: Dementia type: Alzheimer's disease Alzheimer's disease onset: late-onset Dementia behavioral disturbance: with behavioral disturbance Qualified Code(s) : G30.1 - Alzheimer's disease with late onset; F02.81 - Dementia in other diseases classified elsewhere with behavioral disturbance (2) Behavior concern in adult Problem: Acute (3) CVA (cerebral vascular accident) Problem: Chronic (4) COPD (chronic obstructive pulmonary disease) Problem: Chronic Qualifiers: COPD type: unspecified COPD Qualified Code(s): J44.9 - Chronic obstructive pulmonary disease, unspecified (5) Stage III chronic kidney disease Problem: Chronic (6) HTN (hypertension) Problem: Chronic Qualifiers: Hypertension type: essential hypertension Qualified Code(s): I10 - Essential (primary) hypertension
[2017-07-13] MEDS: LORazepam 1 MG TABLET PO PRN (18:47)
[2017-07-14] MEDS: LORazepam 1 MG TABLET PO PRN (01:55)
[2017-07-14] MEDS: PANTOPRAZOLE SODIUM 40 MG TABLET.EC PO SCH (07:08)
[2017-07-14] MEDS: HYDROPHILIC OINTMENT 454 APPL JAR TP SCH ×2 (09:23→20:40)
[2017-07-14] MEDS: SERTRALINE HCL 50 MG TABLET PO SCH (09:23)
[2017-07-14] MEDS: ACETAMINOPHEN 325 MG TABLET PO SCH ×3 (09:23→16:50)
[2017-07-14] MEDS: HALOPERIDOL 1 MG TABLET PO SCH ×4 (09:24→21:26)
[2017-07-14] MEDS: LOSARTAN POTASSIUM 50 MG TABLET PO SCH (09:24)
[2017-07-14] MEDS: sulfaSALAzine 500 MG TABLET PO SCH ×3 (09:24→21:26)
[2017-07-14] MEDS: LORATADINE 10 MG TABLET PO SCH (09:24)
[2017-07-14] MEDS: PSYLLIUM SEED 1 PACKET PACKET PO SCH (09:24)
[2017-07-14] MEDS: SENNOSIDES 8.6 MG TABLET PO SCH ×2 (09:24→20:42)
[2017-07-14] MEDS: POTASSIUM CHLORIDE 20 MEQ TABLET.SA PO SCH (09:24)
[2017-07-14] MEDS: FAMOTIDINE 20 MG TABLET PO SCH ×3 (09:25→21:26)
[2017-07-14] MEDS: amLODIPine BESYLATE 10 MG TABLET PO SCH (09:25)
[2017-07-14] MEDS: NYSTATIN 30 APPL TUBE TP SCH ×2 (09:25→20:42)
[2017-07-14] MEDS: HALOPERIDOL LACTATE 5 MG/ML VIAL IM PRN (11:19)
[2017-07-14] MEDS: ENOXAPARIN SODIUM 40 MG/0.4 ML SYRG SC SCH (14:45)
--- NOTE | 2017-07-14 23:55 | PN ---
Subjective - Date and Time Seen Date: 07/14/17 Objective - Vitals Vitals: Last Vital Signs Temp 36.6 C 07/14/17 21:00 Pulse 67 07/14/17 21:00 Resp 18 07/14/17 21:00 BP 124/46 07/14/17 21:00 Pulse Ox 96 07/14/17 21:00
--- NOTE | 2017-07-15 06:05 | PN ---
Subjective - Date and Time Seen Date: 07/15/17 Time: 06:02 Subjective Narrative: Pt seen this am. He is in no distress. Nursing reports he was calm and cooperative in the night. No acute events. Objective - Vitals Vitals: Last Vital Signs Temp 36.6 C 07/15/17 02:37 Pulse 79 07/15/17 02:37 Resp 18 07/15/17 02:37 BP 117/69 07/15/17 02:37 Pulse Ox 96 07/15/17 02:37 - Exam Constitutional: Present: Alert, Cooperative, No distress, Elderly ENT Exam: Present: hard of hearing Breasts: Present: Exam deferred Respiratory: Present: normal breath sounds, No rales, No wheezing Cardiovascular/Chest: Present: normal peripheral pulses, regular rate, rhythm, no chest tenderness Abdomen: Present: Normal bowel sounds, soft, nontender /Rectal: Present: Exam deferred Extremity: Present: normal range of motion, non-tender, normal inspection Skin Exam: Present: warm/dry, no cyanosis Lymphatic: Present: no adenopathy Neurologic: Present: no motor/sensory deficits, alert Appearance: Present: impaired insight, impaired remote memory Eye contact: Present: cooperative, normal speech Thoughts: Present: no apparent hallucination Assessment/Plan - Problems/Diagnosis (1) Discharge planning issues Problem: Acute Narrative: Seen by Psychiatry. Haldol dose increased to manage aggressive behaviors. Awaiting on placement. (2) Pneumonia Problem: Resolved (3) Urinary tract infection Problem: Resolved Qualifiers: Urinary tract infection type: site unspecified Hematuria presence: without hematuria Qualified Code(s): N39.0 - Urinary tract infection, site not specified (4) Anemia of chronic disease Problem: Chronic (5) Chronic diastolic (congestive) heart failure Problem: Chronic (6) Dementia Problem: Chronic (7) Pneumonia Problem: Resolved (8) HTN (hypertension) Problem: Chronic Qualifiers: Hypertension type: essential hypertension Qualified Code(s): I10 - Essential (primary) hypertension (9) COPD (chronic obstructive pulmonary disease) Problem: Chronic Qualifiers: COPD type: unspecified COPD Qualified Code(s): J44.9 - Chronic obstructive pulmonary disease, unspecified
[2017-07-15] MEDS: PANTOPRAZOLE SODIUM 40 MG TABLET.EC PO SCH (07:42)
[2017-07-15] MEDS: HYDROPHILIC OINTMENT 454 APPL JAR TP SCH ×2 (09:32→20:11)
[2017-07-15] MEDS: NYSTATIN 30 APPL TUBE TP SCH ×2 (09:32→20:12)
[2017-07-15] MEDS: SERTRALINE HCL 50 MG TABLET PO SCH (09:33)
[2017-07-15] MEDS: sulfaSALAzine 500 MG TABLET PO SCH ×2 (09:33→20:11)
[2017-07-15] MEDS: ACETAMINOPHEN 325 MG TABLET PO SCH ×3 (09:33→17:57)
[2017-07-15] MEDS: POTASSIUM CHLORIDE 20 MEQ TABLET.SA PO SCH (09:33)
[2017-07-15] MEDS: FAMOTIDINE 20 MG TABLET PO SCH ×2 (09:33→20:11)
[2017-07-15] MEDS: LORATADINE 10 MG TABLET PO SCH (09:34)
[2017-07-15] MEDS: PSYLLIUM SEED 1 PACKET PACKET PO SCH (09:34)
[2017-07-15] MEDS: HALOPERIDOL 1 MG TABLET PO SCH ×3 (09:34→20:11)
[2017-07-15] MEDS: amLODIPine BESYLATE 10 MG TABLET PO SCH (09:34)
[2017-07-15] MEDS: SENNOSIDES 8.6 MG TABLET PO SCH ×2 (09:34→20:12)
[2017-07-15] MEDS: LOSARTAN POTASSIUM 50 MG TABLET PO SCH (09:34)
[2017-07-15] MEDS: ENOXAPARIN SODIUM 40 MG/0.4 ML SYRG SC SCH (15:17)
[2017-07-15] MEDS: LORazepam 1 MG TABLET PO PRN ×2 (20:11→21:28)
--- NOTE | 2017-07-16 06:18 | PN ---
Subjective - Date and Time Seen Date: 07/16/17 Time: 06:15 Subjective Narrative: Pt seem this am. Nursing reports he was cooperative and calm. No other acute events overnight. Objective - Vitals Vitals: Last Vital Signs Temp 36.5 C 07/15/17 22:46 Pulse 87 07/15/17 22:46 Resp 18 07/15/17 22:46 BP 127/73 07/15/17 22:46 Pulse Ox 94 07/15/17 22:46 - Exam Constitutional: Present: Alert, Cooperative, No distress, Elderly ENT Exam: Present: hard of hearing Neck: Present: non-tender, full range of motion, normal inspection Breasts: Present: Exam deferred Respiratory: Present: lungs clear, normal breath sounds Cardiovascular/Chest: Present: normal peripheral pulses, regular rate, rhythm, no murmur Abdomen: Present: Normal bowel sounds, soft, nontender /Rectal: Present: Exam deferred Extremity: Present: non-tender, normal inspection, no pedal edema Skin Exam: Present: warm/dry, no cyanosis Lymphatic: Present: no adenopathy Neurologic: Present: no motor/sensory deficits, alert Appearance: Present: impaired insight, impaired recent memory, impaired remote memory Eye contact: Present: cooperative, normal speech Thoughts: Present: no apparent hallucination Assessment/Plan - Problems/Diagnosis (1) Discharge planning issues Problem: Acute Narrative: Seen by Psychiatry. Haldol dose increased to manage aggressive behaviors. Awaiting on placement. (2) Pneumonia Problem: Resolved (3) Urinary tract infection Problem: Resolved Qualifiers: Urinary tract infection type: site unspecified Hematuria presence: without hematuria Qualified Code(s): N39.0 - Urinary tract infection, site not specified (4) Anemia of chronic disease Problem: Chronic (5) Chronic diastolic (congestive) heart failure Problem: Chronic (6) Dementia Problem: Chronic (7) Pneumonia Problem: Resolved (8) HTN (hypertension) Problem: Chronic Qualifiers: Hypertension type: essential hypertension Qualified Code(s): I10 - Essential (primary) hypertension (9) COPD (chronic obstructive pulmonary disease) Problem: Chronic Qualifiers: COPD type: unspecified COPD Qualified Code(s): J44.9 - Chronic obstructive pulmonary disease, unspecified
[2017-07-16] MEDS: PANTOPRAZOLE SODIUM 40 MG TABLET.EC PO SCH (09:39)
[2017-07-16] MEDS: POTASSIUM CHLORIDE 20 MEQ TABLET.SA PO SCH (09:39)
[2017-07-16] MEDS: ACETAMINOPHEN 325 MG TABLET PO SCH ×3 (09:39→16:13)
[2017-07-16] MEDS: SERTRALINE HCL 50 MG TABLET PO SCH (09:39)
[2017-07-16] MEDS: HALOPERIDOL 1 MG TABLET PO SCH ×3 (09:39→20:06)
[2017-07-16] MEDS: sulfaSALAzine 500 MG TABLET PO SCH ×2 (09:40→20:06)
[2017-07-16] MEDS: LORATADINE 10 MG TABLET PO SCH (09:40)
[2017-07-16] MEDS: SENNOSIDES 8.6 MG TABLET PO SCH ×2 (09:40→20:07)
[2017-07-16] MEDS: FAMOTIDINE 20 MG TABLET PO SCH ×2 (09:40→20:06)
[2017-07-16] MEDS: PSYLLIUM SEED 1 PACKET PACKET PO SCH (09:40)
[2017-07-16] MEDS: NYSTATIN 30 APPL TUBE TP SCH ×2 (09:41→20:06)
[2017-07-16] MEDS: HYDROPHILIC OINTMENT 454 APPL JAR TP SCH ×2 (09:41→20:06)
[2017-07-16] MEDS: amLODIPine BESYLATE 10 MG TABLET PO SCH (09:42)
[2017-07-16] MEDS: LOSARTAN POTASSIUM 50 MG TABLET PO SCH (09:42)
[2017-07-16] MEDS: ENOXAPARIN SODIUM 40 MG/0.4 ML SYRG SC SCH (15:50)
[2017-07-16] MEDS: LORazepam 1 MG TABLET PO PRN ×2 (20:06→22:26)
--- NOTE | 2017-07-17 05:54 | PN ---
Subjective - Date and Time Seen Date: 07/17/17 Time: 05:54 Subjective Narrative: Pt seen this am. Rested well. No agitation or aggressive behaviour according to nursing. Objective - Vitals Vitals: Last Vital Signs Temp 36.4 C L 07/16/17 20:45 Pulse 70 07/16/17 20:45 Resp 18 07/16/17 20:45 BP 126/63 07/16/17 20:45 Pulse Ox 96 07/16/17 20:45 - Exam Constitutional: Present: Alert, Cooperative, No distress, Elderly ENT Exam: Present: hard of hearing Neck: Present: full range of motion, supple, normal inspection Breasts: Present: Exam deferred Respiratory: Present: lungs clear, no accessory muscle use, No wheezing Cardiovascular/Chest: Present: normal peripheral pulses, regular rate, rhythm, no murmur Abdomen: Present: Normal bowel sounds, soft, nontender /Rectal: Present: Exam deferred Extremity: Present: normal range of motion, normal inspection Skin Exam: Present: no cyanosis, diaphoresis Lymphatic: Present: no adenopathy Neurologic: Present: no motor/sensory deficits, alert Appearance: Present: impaired recent memory, impaired remote memory Eye contact: Present: cooperative, normal speech Thoughts: Present: no apparent hallucination Assessment/Plan - Problems/Diagnosis (1) Discharge planning issues Problem: Acute Narrative: Seen by Psychiatry. Haldol dose increased to manage aggressive behaviors. Awaiting on placement. (2) Pneumonia Problem: Resolved (3) Urinary tract infection Problem: Resolved Qualifiers: Urinary tract infection type: site unspecified Hematuria presence: without hematuria Qualified Code(s): N39.0 - Urinary tract infection, site not specified (4) Anemia of chronic disease Problem: Chronic (5) Chronic diastolic (congestive) heart failure Problem: Chronic (6) Dementia Problem: Chronic (7) Pneumonia Problem: Resolved (8) HTN (hypertension) Problem: Chronic Qualifiers: Hypertension type: essential hypertension Qualified Code(s): I10 - Essential (primary) hypertension (9) COPD (chronic obstructive pulmonary disease) Problem: Chronic Qualifiers: COPD type: unspecified COPD Qualified Code(s): J44.9 - Chronic obstructive pulmonary disease, unspecified
[2017-07-17] MEDS: PANTOPRAZOLE SODIUM 40 MG TABLET.EC PO SCH (06:54)
[2017-07-17] MEDS: HYDROPHILIC OINTMENT 454 APPL JAR TP SCH ×2 (08:45→20:15)
[2017-07-17] MEDS: FAMOTIDINE 20 MG TABLET PO SCH ×2 (08:46→20:15)
[2017-07-17] MEDS: SERTRALINE HCL 50 MG TABLET PO SCH (08:46)
[2017-07-17] MEDS: LORATADINE 10 MG TABLET PO SCH (08:46)
[2017-07-17] MEDS: NYSTATIN 30 APPL TUBE TP SCH ×2 (08:46→20:15)
[2017-07-17] MEDS: ACETAMINOPHEN 325 MG TABLET PO SCH ×3 (08:46→16:31)
[2017-07-17] MEDS: POTASSIUM CHLORIDE 20 MEQ TABLET.SA PO SCH (08:46)
[2017-07-17] MEDS: sulfaSALAzine 500 MG TABLET PO SCH ×2 (08:46→20:14)
[2017-07-17] MEDS: amLODIPine BESYLATE 10 MG TABLET PO SCH (08:47)
[2017-07-17] MEDS: SENNOSIDES 8.6 MG TABLET PO SCH ×2 (08:47→20:15)
[2017-07-17] MEDS: LOSARTAN POTASSIUM 50 MG TABLET PO SCH (08:47)
[2017-07-17] MEDS: PSYLLIUM SEED 1 PACKET PACKET PO SCH (08:47)
[2017-07-17] MEDS: HALOPERIDOL 1 MG TABLET PO SCH ×3 (08:47→20:14)
[2017-07-17] MEDS: ENOXAPARIN SODIUM 40 MG/0.4 ML SYRG SC SCH (15:30)
[2017-07-17] MEDS: LORazepam 1 MG TABLET PO PRN ×2 (19:01→20:17)
[2017-07-18] MEDS: LORazepam 1 MG TABLET PO PRN ×2 (00:57→19:50)
--- NOTE | 2017-07-18 08:05 | PN ---
Progess Note - Interim Narrative: 07/18/17 08:04 Still awaiting for NH placement. Behavior over the weekend has been controlled.
[2017-07-18] MEDS: HYDROPHILIC OINTMENT 454 APPL JAR TP SCH ×2 (09:10→20:26)
[2017-07-18] MEDS: SERTRALINE HCL 50 MG TABLET PO SCH (09:10)
[2017-07-18] MEDS: amLODIPine BESYLATE 10 MG TABLET PO SCH (09:10)
[2017-07-18] MEDS: ACETAMINOPHEN 325 MG TABLET PO SCH ×3 (09:10→16:18)
[2017-07-18] MEDS: LORATADINE 10 MG TABLET PO SCH (09:11)
[2017-07-18] MEDS: HALOPERIDOL 1 MG TABLET PO SCH ×3 (09:11→20:02)
[2017-07-18] MEDS: sulfaSALAzine 500 MG TABLET PO SCH ×2 (09:11→20:03)
[2017-07-18] MEDS: LOSARTAN POTASSIUM 50 MG TABLET PO SCH (09:11)
[2017-07-18] MEDS: FAMOTIDINE 20 MG TABLET PO SCH ×2 (09:11→20:02)
[2017-07-18] MEDS: POTASSIUM CHLORIDE 20 MEQ TABLET.SA PO SCH (09:11)
[2017-07-18] MEDS: PANTOPRAZOLE SODIUM 40 MG TABLET.EC PO SCH (09:14)
[2017-07-18] MEDS: PSYLLIUM SEED 1 PACKET PACKET PO SCH (09:17)
[2017-07-18] MEDS: NYSTATIN 30 APPL TUBE TP SCH ×2 (09:17→20:03)
[2017-07-18] MEDS: SENNOSIDES 8.6 MG TABLET PO SCH ×2 (09:17→20:02)
--- NOTE | 2017-07-18 14:40 | PN ---
Subjective - Date and Time Seen Date: 07/18/17 Time: 14:38 Subjective Narrative: Patient has been behaving well lately. Objective - Review of Systems Generalized/Overall Review: Reports: No Symptoms Reported EENTM: Reports: No Symptoms Reported Respiratory: Reports: No Symptoms Reported Cardiac: Reports: No Symptoms Reported Abdominal: Reports: No Symptoms Reported Genitourinary Symptoms: Reports: No Symptoms Reported Musculoskeletal Complaints: Reports: No Symptoms Reported Neurological: Reports: No Symptoms Reported Skin: Reports: No Symptoms Reported Endocrine: Reports: No Symptoms Reported Misc: All systems neg except as marked - Unreliable due to mental status - Vitals Vitals: Last Vital Signs Temp 37 C 07/18/17 14:21 Pulse 97 07/18/17 14:21 Resp 20 07/18/17 14:21 BP 115/72 07/18/17 14:21 Pulse Ox 98 07/18/17 14:21 - Exam Constitutional: Present: Alert - AAO x 1, Elderly ENT Exam: Present: hard of hearing Neck: Present: supple Respiratory: Present: decreased breath sounds, No rales, No wheezing Cardiovascular/Chest: Present: no JVD, no murmur, irregularly irregular Abdomen: Present: soft, nontender, nondistended Extremity: Present: no pedal edema, no calf tenderness Assessment/Plan - Problems/Diagnosis (1) Dementia Problem: Chronic Qualifiers: Dementia type: Alzheimer's disease Alzheimer's disease onset: late-onset Dementia behavioral disturbance: with behavioral disturbance Qualified Code(s) : G30.1 - Alzheimer's disease with late onset; F02.81 - Dementia in other diseases classified elsewhere with behavioral disturbance Narrative: awaiting NH placement (2) Behavior concern in adult Problem: Acute Narrative: improved (3) CVA (cerebral vascular accident) Problem: Chronic (4) COPD (chronic obstructive pulmonary disease) Problem: Chronic Qualifiers: COPD type: unspecified COPD Qualified Code(s): J44.9 - Chronic obstructive pulmonary disease, unspecified (5) Stage III chronic kidney disease Problem: Chronic (6) HTN (hypertension) Problem: Chronic Qualifiers: Hypertension type: essential hypertension Qualified Code(s): I10 - Essential (primary) hypertension
[2017-07-18] MEDS: ENOXAPARIN SODIUM 40 MG/0.4 ML SYRG SC SCH (16:17)
[2017-07-19 06:38] LABS: Hematocrit 32.8 % (42.0-52.0); Hemoglobin 10.6 gm/dL (13.5-18.0); Mean Cell Volume 83.7 fl (78-100); Mean Corpuscular Hgb Conc 32.3 g/dl (32-36); Mean Platelet Volume 10.4 fl (6.0-9.5); Neutrophil # 4.7 K/mm3 (1.3-6.0); Neutrophil % 67.5 % (42-75.0); Platelet Count 186 K/mm3 (150-450); Red Blood Count 3.92 M/mm3 (4.7-6.0); Red Cell Distribution Width 15.9 % (11.5-14.0); White Blood Count 6.9 K/mm3 (4.0-10.5)
[2017-07-19 06:45] LABS: Anion Gap 15.1 mmol/L (6.8-13.8); BUN/Creatinine Ratio 15.3 (9.0-21.6); Calcium * 8.3 mg/dL (7.9-10.9); Carbon Dioxide 22.3 mmol/L (24-32.6); Estimated Creat Clear 34.1; Potassium 4.4 mmol/L (3.4-4.6)
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
[2017-07-19 08:29] VITALS: BP 136/79
[2017-07-19] MEDS: PANTOPRAZOLE SODIUM 40 MG TABLET.EC PO SCH (09:03)
[2017-07-19] MEDS: SERTRALINE HCL 50 MG TABLET PO SCH (09:03)
[2017-07-19] MEDS: SENNOSIDES 8.6 MG TABLET PO SCH (09:04)
[2017-07-19] MEDS: FAMOTIDINE 20 MG TABLET PO SCH (09:04)
[2017-07-19] MEDS: sulfaSALAzine 500 MG TABLET PO SCH (09:04)
[2017-07-19] MEDS: LORATADINE 10 MG TABLET PO SCH (09:04)
[2017-07-19] MEDS: amLODIPine BESYLATE 10 MG TABLET PO SCH (09:04)
[2017-07-19] MEDS: LOSARTAN POTASSIUM 50 MG TABLET PO SCH (09:05)
[2017-07-19] MEDS: POTASSIUM CHLORIDE 20 MEQ TABLET.SA PO SCH (09:05)
[2017-07-19] MEDS: HALOPERIDOL 1 MG TABLET PO SCH (09:05)
[2017-07-19] MEDS: NYSTATIN 30 APPL TUBE TP SCH (09:05)
[2017-07-19] MEDS: PSYLLIUM SEED 1 PACKET PACKET PO SCH (09:05)
[2017-07-19] MEDS: HYDROPHILIC OINTMENT 454 APPL JAR TP SCH (09:06)
[2017-07-19] MEDS: ACETAMINOPHEN 325 MG TABLET PO SCH (09:11)
== END 2017-07-19 11:25 | disposition home health service (06) | DRG 57 ==
LOC: ER 17:41 → MS 22:50 → OBSVTOIN 07-01 14:28
PROVIDERS: ADMIT Nurse Practitioner; ATTEND Internal Medicine
DX: G30.1 Alzheimer's disease with late onset (principal); F02.81 Dementia in other diseases classified elsewhere, unspecified severity, with behavioral disturbance; I50.32 Chronic diastolic (congestive) heart failure; R41.0 Disorientation, unspecified; I12.9 Hypertensive chronic kidney disease with stage 1 through stage 4 chronic kidney disease, or unspecified chronic kidney disease; N18.3 Chronic kidney disease, stage 3 (moderate); J44.9 Chronic obstructive pulmonary disease, unspecified; Z23 Encounter for immunization
CPT/HCPCS: 36415; 70450; 71010; 80048; 80053; 81001; 82140; 85025; 87040; 87081; 87086; 90686; G0008; G0378

== ENCOUNTER 2017-09-13 10:00 | Inpatient (IN) | payer MEDICARE, BC ==
[2017-09-13] MEDS ORDERED: NORMAL SALINE 1,000 ML IV ONE (10:22)
[2017-09-13] MEDS ORDERED: LEVOFLOXACIN IN DEXTROSE 5 % 500 MG/100 ML BAG IV SCH (10:30)
[2017-09-13 10:39] LABS: Hematocrit 34.3 % (42.0-52.0); Hemoglobin 11.2 gm/dL (13.5-18.0); Mean Cell Volume 83.1 fl (78-100); Mean Corpuscular Hemoglobin 27.1 pg (27-31); Mean Corpuscular Hgb Conc 32.7 g/dl (32-36); Mean Platelet Volume 9.7 fl (6.0-9.5); Neutrophil # 14.1 K/mm3 (1.3-6.0); Neutrophil % 87.3 % (42-75.0); Platelet Count 285 K/mm3 (150-450); Red Blood Count 4.13 M/mm3 (4.7-6.0); Red Cell Distribution Width 14.6 % (11.5-14.0); White Blood Count 16.2 K/mm3 (4.0-10.5)
[2017-09-13 10:58] LABS: Albumin * 2.8 gm/dl (3.4-5.0); Anion Gap 16.2 mmol/L (6.8-13.8); BUN/Creatinine Ratio 13.6 (9.0-21.6); Bilirubin, Total 0.5 mg/dL (0.0-1.1); Ca. Corrected For Albumin 9.1 mg/dL (8.4-10.2); Calcium * 8.5 mg/dL (7.9-10.9); Carbon Dioxide 21.6 mmol/L (24-32.6); Potassium 3.8 mmol/L (3.4-4.6); Total Protein 6.8 gm/dL (6.2-8.2)
[2017-09-13 11:00] LABS: Troponin I 0.025 ng/ml (0.00-0.10)
[2017-09-13 12:14] LABS: Urine Bilirubin Negative (NEGATIVE); Urine Blood 250 /ul (NEGATIVE); Urine Ketone 15 mg/dL (NEGATIVE); Urine Protein 100 mg/dL (NEGATIVE); Urine Specific Gravity >=1.030 SP.GR. (1.005-1.030); Urine Urobilinogen Normal (NORMAL)
[2017-09-13 12:21] LABS: Urine Appearance Cloudy; Urine Color Yellow; Urine Nitrite Positive (NEGATIVE)
[2017-09-13 12:22] LABS: Urine Bacteria 2+; Urine Hyaline Cast 0-5 /LPF
--- NOTE | 2017-09-13 12:47 | ERNOTE ---
Neuro HPI ER Record Date of Service: 09/13/17 Presenting Symptoms: weakness Time Seen by Provider: 09/13/17 10:19 Source: family Exam Limitations: other - unable to obtain Hx from patient. Hx available from family via phone Immunizations: IMMUNIZATION HX Immunizations Up to Date Yes History of Influenza Vaccine Yes Hx Pneumococcal Vaccination Yes Allergies/Adverse Reactions: Allergies Allergy/AdvReac Type Severity Reaction Status Date / Time Penicillins AdvReac Severe Hives Verified 05/31/17 11:42 Home Medications: HOME MEDICATIONS Furosemide [Lasix] 40 mg PO DAILY PRN 05/31/17 [Last Taken Unknown] Potassium Chloride [Klor-Con M20] 20 meq PO DAILY 05/31/17 [Last Taken Unknown] Albuterol Sulfate [Albuterol Sulfate 2.5 MG/3 ML] 2.5 mg IH Q6H PRN #7 vial.neb 06/07/17 [Last Taken Unknown] Albuterol Sulfate/Ipratropium [Duoneb 2.5-0.5MG/3ML Soln] 3 ml IH BID #7 nebu [Last Taken Unknown] Hydrophilic Ointment [Aquaphilic Ointment] 1 appl TP BID jar 06/07/17 [Last Taken Unknown] Losartan Potassium [Cozaar] 50 mg PO DAILY #30 tablet 06/07/17 [Last Taken Unknown] Pantoprazole Sodium [Protonix] 40 mg PO DAILY@0700 #30 tablet. 06/07/17 [Last Taken Unknown] Psyllium Husk (with Sugar) [Metamucil] 1 each PO DAILY #30 packet 06/07/17 [ Last Taken Unknown] Sennosides [Senokot] 8.6 mg PO BID #60 tablet 06/07/17 [Last Taken Unknown] amLODIPine BESYLATE [Norvasc] 10 mg PO DAILY #30 tablet 06/07/17 [Last Taken Unknown] Acetaminophen [Tylenol] 325 mg PO TID 06/30/17 [Last Taken Unknown] Acetaminophen [Tylenol] 500 mg PO Q6H PRN 06/30/17 [Last Taken Unknown] sulfaSALAzine [Sulfazine] 500 mg PO BID 06/30/17 [Last Taken Unknown] Haloperidol [Haldol] 2 mg PO 0900,1600,2100 #90 tablet 07/19/17 [Last Taken Unknown] Sertraline HCl [Zoloft] 25 mg PO DAILY #30 tablet 07/19/17 [Last Taken Unknown] - History of Present Illness Narrative: Patient presents to the ED via EMS. He is unable to provide Hx. By report being treated for UTI, failing treatment. states poor speech since Tuesday and Left sided weakness since yesterday Morning. No fever or vomiting. I cannot obtain any Hx from the patient. Onset: other - yesterday morning - Character of Deficits New weakness: Present: other - left side Additional Deficits: Present: impaired speech Associated Symptoms: Denies: fever/chills Prior Treament: Reports: currently on antibiotics Review of Systems - Narrative Narrative: Unobtainable from patient - Patient's Past Medical History Patient History - Medical: Arthritis, Dementia, Renal Disease, UTI'S, Other Patient History - Cardiac/Respiratory: Aneurysm, Coronary Heart Disease, COPD, Hypertension, Peripheral Vascular Disease Patient History - Cancer: No Hx of Cancer Patient History - Surgical Procedures: Cataracts, Other, ENT Patient History - Other: None - Family History Mother Family History - Medical: , Alzheimer's Disease Family History - Cardiac/Respiratory: No pertinent hx Family History - Cancer: No pertinent family hx Father Family History - Medical: Family History - Cardiac/Respiratory: History Unknown Family History - Cancer: Throat - Social History Living Situations: other Abuse History: No History of abuse Psych History: No pertinent hx Smoking Status: Former smoker Have you smoked in the past 12 months: No Do you dip or chew tobacco: No Alcohol Use: none Drug Use: none - Immunizations Immunizations Up to Date: Yes Hx Pneumococcal Vaccination: Yes History of Influenza Vaccine: Yes Physical Exam - Physical Exam General Appearance: Present: alert, other - chronically ill appearing Head Exam: Present: normal inspection, no evidence of injury Eye Exam: Normal inspection: bilateral, PERRL: bilateral Ears, Nose, Throat: Present: dry mucous membranes Neck: Present: normal inspection Respiratory: Present: no respiratory distress, normal breath sounds, no accessory muscle use, lungs clear Cardiovascular/Chest: Present: normal peripheral pulses, other - tachycardic, regular Gastrointestinal/Abdominal: Present: normal bowel sounds, nontender, nondistended, soft Back Exam: Absent: CVA tenderness (R), CVA tenderness (L) Extremity Exam: Present: other - no deformity Neurological Exam: Present: other - alert but non-communicative. Left facial droop. Moderate left sided weaknes noted upper and lower, compromised exam d/t patient condition. Findings c/w stroke. Skin Exam: Present: normal color, warm/dry ED Progress - Results and Orders Patient's Lab Results:: I have reviewed the patient's lab results. - Vital Signs Patient's Vital Signs:: I have reviewed the patient's vital signs. Vital Signs: Vital Signs 09/13/17 09/13/17 10:13 11:04 Temperature 37.2 C Pulse Rate 128 H 98 Respiratory 34 H 26 H Rate Blood Pressure 153/75 160/79 O2 Sat by Pulse 93 97 Oximetry - EKG EKG read: Interp. by me EKG Comments: Sinus tachycardia, rate 126. Non-specific ST/T wave changes, no STEMI. - X-Ray X-Ray #1 X-Ray: chest Interpretation: Interp. by me X-ray Comments: I reviewed official radiology report - CT/Ultrasound CT/Ultrasound Narrative: I reviewed official HCT radiology report - Progress/Reassessment Chief Complaint: Altered Mental Status Progress Note-Subjective: 09/13/17 12:46 IV fluids and IV ABx given. Pt stroke Sx began yesterday mornign. Not a candidate for tPA as out of window. D/W . D/W Dr Boyce who will admit to the hospital. Departure Clinical Impression: UTI (urinary tract infection), Failure of outpatient treatment, Left-sided weakness - Departure Disposition: [facility] Condition: Fair
--- NOTE | 2017-09-13 16:13 | HP ---
Chief Complaint - Chief Complaint Date of Service: 09/13/17 Time of Service: 16:13 Chief Complaint: weakness History of Present Illness: Emir Robbins, is an 81-year-old white male, with previous medical history of dementia, Alzheimer's type, COPD, hypertension, who was admitted on 2016 because of weakness. The patient is a poor historian and I am not able to obtain history from him. He would open his eyes with name call but would not answer my questions. The history is based on emergency room notes- "Patient presents to the ED via EMS. He is unable to provide Hx. By report being treated for UTI, failing treatment. states poor speech since Tuesday and Left sided weakness since yesterday Morning. No fever or vomiting. I cannot obtain any Hx from the patient." I did start him on Bactrim for UTI 2-3 days ago. - Patient's Past Medical History Patient History - Medical: Arthritis, Dementia, Renal Disease, UTI'S, Other Patient History - Cardiac/Respiratory: Aneurysm, Coronary Heart Disease, COPD, Hypertension, Peripheral Vascular Disease Patient History - Cancer: No Hx of Cancer Patient History - Surgical Procedures: Cataracts, Other, ENT Patient History - Other: None - Family History Mother Family History - Medical: , Alzheimer's Disease Family History - Cardiac/Respiratory: No pertinent hx Family History - Cancer: No pertinent family hx Father Family History - Medical: Family History - Cardiac/Respiratory: History Unknown Family History - Cancer: Throat - Social History Living Situations: other Abuse History: No History of abuse Psych History: No pertinent hx Smoking Status: Former smoker Have you smoked in the past 12 months: No Do you dip or chew tobacco: No Alcohol Use: none Drug Use: none - Immunizations Immunizations Up to Date: Yes Hx Pneumococcal Vaccination: Yes History of Influenza Vaccine: Yes Review Of Systems (GEN) - Review of Systems Misc: All systems neg except as marked - UnAble to obtain ROS as he would not answer questions Immunizations: IMMUNIZATION HX Immunizations Up to Date Yes History of Influenza Vaccine Yes Hx Pneumococcal Vaccination Yes Allergies/Adverse Reactions: Allergies Allergy/AdvReac Type Severity Reaction Status Date / Time Penicillins AdvReac Severe Hives Verified 09/13/17 15:03 Home Medications: HOME MEDICATIONS Sertraline HCl [Zoloft] 25 mg PO DAILY #30 tablet 07/19/17 [Last Taken Unknown] Haloperidol [Haldol] 1 mg PO BID 09/13/17 [Last Taken Unknown] Haloperidol [Haldol] 2 mg PO HS 09/13/17 [Last Taken Unknown] Exam - Exam Vital Signs: Vital Signs - Last Taken Temp 37.0 C 09/13/17 14:31 Pulse 101 H 09/13/17 14:31 Resp 26 H 09/13/17 14:31 BP 182/84 09/13/17 14:31 Pulse Ox 95 09/13/17 14:31 Constitutional: Present: Alert - AAOx 1, Lethargic, Elderly ENT Exam: Present: hard of hearing Eye Exam: bilateral eye: normal inspection, PERRL, EOMI Respiratory: Present: decreased breath sounds, No rales, No wheezing Cardiovascular/Chest: Present: regular rate, rhythm, no JVD, no murmur Abdomen: Present: Normal bowel sounds, soft, nontender, nondistended Extremity: Present: no calf tenderness, pedal edema Neurologic: Present: other - exam limited- positive left facial droop, positive left hemiparesis Diagnostic Studies: Laboratory Results WBC 16.2 K/mm3 (4.0-10.5) H 09/13/17 10:30 RBC 4.13 M/mm3 (4.7-6.0) L 09/13/17 10:30 Hgb 11.2 gm/dL (13.5-18.0) L 09/13/17 10:30 Hct 34.3 % (42.0-52.0) L 09/13/17 10:30 MCV 83.1 fl (78-100) 09/13/17 10:30 MCH 27.1 pg (27-31) 09/13/17 10:30 MCHC 32.7 g/dl (32-36) 09/13/17 10:30 RDW 14.6 % (11.5-14.0) H 09/13/17 10:30 Plt Count 285 K/mm3 (150-450) 09/13/17 10:30 MPV 9.7 fl (6.0-9.5) H 09/13/17 10:30 Immature Gran % (Auto) 0.90 % (0.001-0.429) H 09/13/17 10:30 Immature Gran # (Auto) 0.14 K/mm3 (0.000-0.0310) H 09/13/17 10:30 Neutrophils % 87.3 % (42-75.0) H 09/13/17 10:30 Lymphocytes % 3.2 % (20-51) L 09/13/17 10:30 Monocytes % 8.2 % (0.0-9) 09/13/17 10:30 Eosinophils % 0.2 % (0.0-3.0) 09/13/17 10:30 Basophils % 0.2 % (0.0-1.0) 09/13/17 10:30 Nucleated RBC % 0.0 k/mm3 (0-1) 09/13/17 10:30 Neutrophils # 14.1 K/mm3 (1.3-6.0) H 09/13/17 10:30 Lymphocytes # 0.5 k/mm3 (1.5-3.5) L 09/13/17 10:30 Monocytes # 1.3 k/mm3 (0.0-1.0) H 09/13/17 10:30 Eosinophils # 0.0 k/mm3 (0.0-0.7) 09/13/17 10:30 Absolute Basophils 0.0 k/mm3 (0.0-0.1) 09/13/17 10:30 Sodium 142 mmol/L (132-142) 09/13/17 10:30 Plasma Sodium 142 mmol/L (130-142) 09/13/17 10:30 Potassium 3.8 mmol/L (3.4-4.6) 09/13/17 10:30 Chloride 108 mmol/L (97-106) H 09/13/17 10:30 Carbon Dioxide 21.6 mmol/L (24-32.6) L 09/13/17 10:30 Anion Gap 16.2 mmol/L (6.8-13.8) H 09/13/17 10:30 BUN 23 mg/dL (6-23) 09/13/17 10:30 Creatinine 1.69 mg/dL (0.4-1.4) H 09/13/17 10:30 Est GFR (Non-Af Amer) 42 mL/min (60-130) L 09/13/17 10:30 BUN/Creatinine Ratio 13.6 (9.0-21.6) 09/13/17 10:30 Random Glucose 102 mg/dL (70-110) 09/13/17 10:30 Lactic Acid, Venous 1.1 mmol/L (0.4-1.9) 09/13/17 10:30 Calcium 8.5 mg/dL (7.9-10.9) 09/13/17 10:30 Calcium Adj for Albumin 9.1 mg/dL (8.4-10.2) 09/13/17 10:30 Total Bilirubin 0.5 mg/dL (0.0-1.1) 09/13/17 10:30 AST 43 U/L (0-48) 09/13/17 10:30 ALT 18 U/L (19-67) L 09/13/17 10:30 Alkaline Phosphatase 84 U/L (50-170) 09/13/17 10:30 Troponin I 0.025 ng/ml (0.00-0.10) 09/13/17 10:30 Total Protein 6.8 gm/dL (6.2-8.2) 09/13/17 10:30 Albumin 2.8 gm/dl (3.4-5.0) L 09/13/17 10:30 Urine Color Yellow 09/13/17 12:00 Urine Appearance Cloudy 09/13/17 12:00 Urine pH 6.0 pH (5.0-7.0) 09/13/17 12:00 Ur Specific Roy >=1.030 SP.GR. (1.005-1.030) 09/13/17 12:00 Urine Protein 100 mg/dL (NEGATIVE) H 09/13/17 12:00 Urine Glucose (UA) Negative mg/dL (NEGATIVE) 09/13/17 12:00 Urine Ketones 15 mg/dL (NEGATIVE) 09/13/17 12:00 Urine Blood 250 /ul (NEGATIVE) H 09/13/17 12:00 Urine Nitrate Positive (NEGATIVE) H 09/13/17 12:00 Urine Bilirubin Negative mg/dl (NEGATIVE) 09/13/17 12:00 Prot Sulfosalicylic Acd 3+ mg/dL (0) H 09/13/17 12:00 Urine Urobilinogen Normal EU/dl (NORMAL) 09/13/17 12:00 Ur Leukocyte Esterase 100 /ul (NEGATIVE) H 09/13/17 12:00 Urine RBC 5-10 /hpf (0-5) H 09/13/17 12:00 Urine WBC 10-25 /hpf (0-5) H 09/13/17 12:00 Ur Epithelial Cells None seen /hpf (0-5) 09/13/17 12:00 Urine Bacteria 2+ (NONE) H 09/13/17 12:00 Hyaline Casts 0-5 /LPF (NONE) H 09/13/17 12:00 Urine Culture Comments Culture to follow 09/13/17 12:00 Assessment/Plan - Assessment/Plan (1) Failure of outpatient treatment Assessment: for UTI Problem: Acute (2) Left-sided weakness Assessment: likely CVA. CTS was negative . will do MRI in the morning. will start patient on ASA. will do CUS/Echo with bubble study. put him in telemetry. Problem: Acute (3) UTI (urinary tract infection) Assessment: C & S growing Gram Negative bacilli. continue with IV rocephin for now. Problem: Acute (4) COPD (chronic obstructive pulmonary disease) Assessment: continue with home meds Problem: Chronic Qualifiers: COPD type: unspecified COPD Qualified Code(s): J44.9 - Chronic obstructive pulmonary disease, unspecified (5) Dementia Assessment: continue with home meds. Problem: Chronic Qualifiers: Dementia type: Alzheimer's disease Alzheimer's disease onset: late-onset Dementia behavioral disturbance: with behavioral disturbance Qualified Code(s) : G30.1 - Alzheimer's disease with late onset; F02.81 - Dementia in other diseases classified elsewhere with behavioral disturbance (6) HTN (hypertension) Assessment: continue with home meds Problem: Chronic Qualifiers: Hypertension type: essential hypertension Qualified Code(s): I10 - Essential (primary) hypertension (7) Rheumatoid arthritis Assessment: continue with home meds. 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
[2017-09-13] MEDS ORDERED: ASPIRIN 325 MG TABLET.DR PO SCH (16:45)
[2017-09-13] MEDS: DEXTROSE 5%-0.5 NORMAL SALINE 1,000 ML IV PRN (17:19)
[2017-09-13] MEDS: ASPIRIN 300 MG SUPP.RECT RC SCH (17:24)
[2017-09-13] MEDS: ENALAPRILAT DIHYDRATE 1.25 MG/ML VIAL IV SCH ×2 (17:28→22:06)
[2017-09-13] MEDS: HALOPERIDOL LACTATE 5 MG/ML VIAL IM SCH (21:57)
[2017-09-14] MEDS: ENALAPRILAT DIHYDRATE 1.25 MG/ML VIAL IV SCH ×4 (04:08→22:26)
[2017-09-14] MEDS: DEXTROSE 5%-0.5 NORMAL SALINE 1,000 ML IV PRN ×2 (08:11→23:54)
--- NOTE | 2017-09-14 09:11 | PN ---
Subjective - Date and Time Seen Date: 09/14/17 Time: 09:05 Subjective Narrative: Zeke is less responsive today. Did open his eyes but does not show reaction to environment and people. Objective - Review of Systems Misc: All systems neg except as marked - Unable to obtain ROS. - Vitals Vitals: Last Vital Signs Temp 37.5 C 09/14/17 06:56 Pulse 77 09/14/17 06:56 Resp 21 H 09/14/17 06:56 BP 120/55 09/14/17 06:56 Pulse Ox 96 09/14/17 03:37 - Exam Constitutional: Present: Somnolent, Elderly Respiratory: Present: decreased breath sounds, No rales, No wheezing Cardiovascular/Chest: Present: regular rate, rhythm, no JVD, no murmur Abdomen: Present: Normal bowel sounds, soft, nontender, nondistended Extremity: Present: no pedal edema, no calf tenderness, other - positive pressure ulcer , right hip area Neurologic: Present: facial droop, other - somnolent to obtubded, difficult to asses motor and sensory fucntion Cauti Physician Documentation - Urinary Catheter Management Urethral (Romero) Date of Insertion: 09/13/17 Time of Insertion: 12:00 Assessment/Plan - Problems/Diagnosis (1) Failure of outpatient treatment Problem: Acute Narrative: Gram negative bacilli UTI. continue with IV Rcephin. (2) Left-sided weakness Problem: Acute Narrative: CVA. For MRI. (3) UTI (urinary tract infection) Problem: Acute Narrative: Gram Negative Bacilli UTI. (4) COPD (chronic obstructive pulmonary disease) Problem: Chronic Qualifiers: COPD type: unspecified COPD Qualified Code(s): J44.9 - Chronic obstructive pulmonary disease, unspecified (5) Dementia Problem: Chronic Qualifiers: Dementia type: Alzheimer's disease Alzheimer's disease onset: late-onset Dementia behavioral disturbance: with behavioral disturbance Qualified Code(s) : G30.1 - Alzheimer's disease with late onset; F02.81 - Dementia in other diseases classified elsewhere with behavioral disturbance (6) HTN (hypertension) Problem: Chronic Qualifiers: Hypertension type: essential hypertension Qualified Code(s): I10 - Essential (primary) hypertension (7) Rheumatoid arthritis Problem: Chronic Qualifiers: Rheumatoid arthritis location: multiple sites Rheumatoid factor presence: with rheumatoid factor Qualified Code(s): 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 Narrative: with necrotic area in the middle - unstageable. continue with mepilex and off loading measures. will get wound clinic consult.
[2017-09-14] MEDS: ASPIRIN 300 MG SUPP.RECT RC SCH (09:22)
[2017-09-14] MEDS: HALOPERIDOL LACTATE 5 MG/ML VIAL IM SCH (09:26)
[2017-09-14] MEDS: ENOXAPARIN SODIUM 40 MG/0.4 ML SYRG SC SCH (11:16)
[2017-09-14] MEDS: CEFEPIME HCL 1 GM in NORMAL SALINE 100 ML IV SCH (12:00)
--- NOTE | 2017-09-14 15:58 | CONS ---
[facility] - General Date of Service: 09/14/17 Narrative: Patient was recently admitted to the hospital due to weakness. He is currently being treated for UTI, left sided weakness, COPD and dementia. On examination, the patient was noted to have an open ulcer on his right hip. He is asleep and does not wake. The history of this ulcer is unknown. Source: RN notes reviewed Exam Limitations: clinical condition - History of Present Illness Timing/Duration: unsure Allergies/Adverse Reactions: Allergies Penicillins Adverse Reaction (Severe, Verified 09/13/17 15:03) Hives Home Medications: Home Medications Medication Instructions Recorded Last Taken Haloperidol [Haldol] 1 mg PO BID 09/13/17 Unknown Haloperidol [Haldol] 2 mg PO HS 09/13/17 Unknown - Patient's Past Medical History Patient History - Medical: Arthritis, Dementia, Renal Disease, UTI'S, Other Patient History - Cardiac/Respiratory: Aneurysm, Coronary Heart Disease, COPD, Hypertension, Peripheral Vascular Disease Patient History - Cancer: No Hx of Cancer Patient History - Surgical Procedures: Cataracts, Other, ENT Patient History - Other: None - Family History Mother Family History - Medical: , Alzheimer's Disease Family History - Cardiac/Respiratory: No pertinent hx Family History - Cancer: No pertinent family hx Father Family History - Medical: Family History - Cardiac/Respiratory: History Unknown Family History - Cancer: Throat - Social History Living Situations: other Abuse History: No History of abuse Psych History: No pertinent hx Smoking Status: Former smoker Have you smoked in the past 12 months: No Do you dip or chew tobacco: No Alcohol Use: none Drug Use: none - Immunizations Immunizations Up to Date: Yes Hx Pneumococcal Vaccination: Yes History of Influenza Vaccine: Yes Procedures AFTER-CATAR DISCISSION (02/25/10) CATARAC PHACOEMULS/ASPIR (06/18/08) CYSTOSCOPY NEC (03/05/15) DORSAL/LAT SLIT PREPUCE (03/05/15) DRAINAGE OF BLADDER, VIA NATURAL OR ARTIFICIAL OPENING (09/13/17) ING HERNIA REP-GRAFT NOS (11/23/11) INSERT LENS AT CATAR EXT (06/18/08) REPAIR SCALP SKIN, EXTERNAL APPROACH (06/17/16) Medications - Medications Current Medications: Current Medications Aspirin (Aspirin Suppository) 300 mg RC DAILY TODD Stop: 10/13/17 16:48 Last Admin: 09/14/17 09:22 Dose: 300 mg Enalaprilat (Vasotec) 0.625 mg IV Q6H [facility] Stop: 10/13/17 16:46 Last Admin: 09/14/17 11:23 Dose: Not Given Enoxaparin Sodium (Lovenox) 40 mg SC Q24H [facility] Stop: 10/14/17 09:16 Last Admin: 09/14/17 11:16 Dose: 40 mg Haloperidol Lactate (Haldol) 1 mg IM BID [facility] Stop: 10/13/17 21:01 Last Admin: 09/14/17 09:26 Dose: 1 mg Dextrose/Sodium Chloride (Dextrose 5%-0.45%Ns) 1,000 mls @ 75 mls/hr IV .[id number] PRN PRN Reason: HYDRATION Stop: 10/13/17 16:33 Last Admin: 09/14/17 08:11 Dose: 75 mls/hr Cefepime HCl 1 gm/ Sodium (Chloride) 100 mls @ 200 mls/hr IV Q24H [facility] Stop: 10/14/17 11:01 Last Admin: 09/14/17 12:00 Dose: 200 mls/hr Review of Systems - Review of Systems Narrative: unable to obtain due to patient's condition Physical Examination - Exam Vital Signs: Vital Signs - Last Taken Temp 37.0 C 09/14/17 14:15 Pulse 58 L 09/14/17 14:15 Resp 20 09/14/17 14:15 BP 143/58 09/14/17 14:15 Pulse Ox 99 09/14/17 14:15 O2 Oxygen Delivery Method Room Air Comprehensive Narative: 09/14/17 15:53 patient is resting comfortably. he does not wake with stimulation. Physical exam is very limited. 09/14/17 15:54 Skin Exam: Present: other - there is an area on the lateral right hip, measuring 4.0 x 3.0cm. there is moderate amount of necrosis present in the mid aspect of the ulcer, making it difficult to stage. no erythema. minimal drainage. - Results and Findings: Narrative: Due to the amount of necrosis present, recommend using Santyl to the ulcer, covered with a mepilex border. The dressing will be changed daily. Wash the area with soap and water at dressing changes. Continue with excellent off- loading of the area. Lab/Microbiology results last 24 hrs: Culture 09/13/17 16:15 - Final Nares MRSA Negative - Assessments/Findings (1) Pressure ulcer of right hip, unstageable Problem: Acute
[2017-09-14] MEDS: COLLAGENASE CLOSTRIDIUM HIST. 30 APPL TUBE TP SCH (16:44)
[2017-09-14] MEDS: NYSTATIN 30 APPL TUBE TP SCH (20:31)
[2017-09-15] MEDS: ENALAPRILAT DIHYDRATE 1.25 MG/ML VIAL IV SCH ×4 (04:11→22:09)
[2017-09-15] MEDS: ASPIRIN 300 MG SUPP.RECT RC SCH (08:41)
[2017-09-15] MEDS: NYSTATIN 30 APPL TUBE TP SCH ×2 (08:41→20:44)
[2017-09-15] MEDS: ENOXAPARIN SODIUM 40 MG/0.4 ML SYRG SC SCH (08:41)
[2017-09-15] MEDS: COLLAGENASE CLOSTRIDIUM HIST. 30 APPL TUBE TP SCH (08:41)
[2017-09-15] MEDS: CEFEPIME HCL 1 GM in NORMAL SALINE 100 ML IV SCH (11:23)
[2017-09-15] MEDS: DEXTROSE 5%-0.5 NORMAL SALINE 1,000 ML IV PRN (11:24)
--- NOTE | 2017-09-15 11:57 | PN ---
Subjective - Date and Time Seen Date: 09/15/17 Time: 11:50 Subjective Narrative: Patient is with son. He is sitting on the recliner more awake. Still with some slurring of speech. Objective - Vitals Vitals: Last Vital Signs Temp 36.6 C 09/15/17 11:19 Pulse 70 09/15/17 11:23 Resp 20 09/15/17 11:19 BP 152/88 09/15/17 11:23 Pulse Ox 94 09/15/17 11:19 - Exam Constitutional: Present: Alert - AAO x 1, Elderly ENT Exam: Present: hard of hearing Neck: Present: supple Respiratory: Present: decreased breath sounds, No rales, No wheezing Cardiovascular/Chest: Present: regular rate, rhythm, no JVD, no murmur Abdomen: Present: Normal bowel sounds, soft, nontender, nondistended Extremity: Present: no pedal edema, no calf tenderness Neurologic: Present: other - AAO x 1, subtle shallower left nasolabial fold, subtle weaker left hand pulmonary care nurse but was still slurring his speech Cauti Physician Documentation - Urinary Catheter Management Urethral (Romero) Date of Insertion: 09/13/17 Time of Insertion: 12:00 Date of Removal: 09/14/17 Time of Removal: 16:23 Assessment/Plan - Problems/Diagnosis (1) Failure of outpatient treatment Problem: Acute (2) Left-sided weakness Problem: Acute Narrative: lekely due to CVA, cannot do MRI due to cochlear implant. repeat CTS showed no acute intracranial findings. will have PT/OT evaluate him again as he is more awake now. (3) UTI (urinary tract infection) Problem: Acute Narrative: Pseudomonas UTI on IV Cefepime. (4) COPD (chronic obstructive pulmonary disease) Problem: Chronic Qualifiers: COPD type: unspecified COPD Qualified Code(s): J44.9 - Chronic obstructive pulmonary disease, unspecified (5) Dementia Problem: Chronic Qualifiers: Dementia type: Alzheimer's disease Alzheimer's disease onset: late-onset Dementia behavioral disturbance: with behavioral disturbance Qualified Code(s) : G30.1 - Alzheimer's disease with late onset; F02.81 - Dementia in other diseases classified elsewhere with behavioral disturbance (6) HTN (hypertension) Problem: Chronic Qualifiers: Hypertension type: essential hypertension Qualified Code(s): I10 - Essential (primary) hypertension (7) Rheumatoid arthritis Problem: Chronic Qualifiers: Rheumatoid arthritis location: multiple sites Rheumatoid factor presence: with rheumatoid factor Qualified Code(s): 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
[2017-09-16] MEDS: DEXTROSE 5%-0.5 NORMAL SALINE 1,000 ML IV PRN (01:04)
[2017-09-16] MEDS: ENALAPRILAT DIHYDRATE 1.25 MG/ML VIAL IV SCH ×4 (04:54→22:40)
[2017-09-16 05:58] LABS: Hematocrit 31.8 % (42.0-52.0); Hemoglobin 9.6 gm/dL (13.5-18.0); Mean Cell Volume 89.3 fl (78-100); Mean Corpuscular Hgb Conc 30.2 g/dl (32-36); Neutrophil # 4.3 K/mm3 (1.3-6.0); Neutrophil % 74.8 % (42-75.0); Red Blood Count 3.56 M/mm3 (4.7-6.0); Red Cell Distribution Width 14.5 % (11.5-14.0); White Blood Count 5.8 K/mm3 (4.0-10.5)
[2017-09-16 06:14] LABS: Anion Gap 16.9 mmol/L (6.8-13.8); BUN/Creatinine Ratio 14.4 (9.0-21.6); Calcium * 8.3 mg/dL (7.9-10.9); Carbon Dioxide 18.5 mmol/L (24-32.6); Potassium 3.4 mmol/L (3.4-4.6)
[2017-09-16 06:15] LABS: Platelet Count 240 K/mm3 (150-450)
[2017-09-16] MEDS: COLLAGENASE CLOSTRIDIUM HIST. 30 APPL TUBE TP SCH (08:05)
[2017-09-16] MEDS: HALOPERIDOL 1 MG TABLET PO SCH ×2 (08:05→20:29)
[2017-09-16] MEDS: ASPIRIN 81 MG TAB.CHEW PO SCH (08:05)
[2017-09-16] MEDS: NYSTATIN 30 APPL TUBE TP SCH ×2 (08:05→20:28)
--- NOTE | 2017-09-16 09:36 | PN ---
Subjective - Date and Time Seen Date: 09/16/17 Time: 09:31 Subjective Narrative: Patient started pulling off his IV line and became agitated. PT/OT culd not evaluate patient as he is very hard of hearing and does not follow instruction. Objective - Review of Systems Misc: All systems neg except as marked - ROS is inobtainable. Does not answer my questions - Vitals Vitals: Last Vital Signs Temp 36.9 C 09/16/17 06:58 Pulse 54 L 09/16/17 06:58 Resp 18 09/16/17 06:58 BP 132/70 09/16/17 06:58 Pulse Ox 97 09/16/17 06:58 - Abnormal Lab Findings Abnormal Lab Findings: Abnormal Lab Results 09/16/17 09/16/17 Range/Units 05:40 06:00 RBC 3.56 L (4.7-6.0) M/mm3 Hgb 9.6 L (13.5-18.0) gm/dL Hct 31.8 L (42.0-52.0) % MCHC 30.2 L (32-36) g/dl RDW 14.5 H (11.5-14.0) % MPV 11.0 H (6.0-9.5) fl Immature Gran % (Auto) 1.00 H (0.001-0.429) % Immature Gran # (Auto) 0.06 H (0.000-0.0310) K/mm3 Lymphocytes % 9.0 L (20-51) % Eosinophils % 6.2 H (0.0-3.0) % Lymphocytes # 0.5 L (1.5-3.5) k/mm3 Chloride 110 H (97-106) mmol/L Carbon Dioxide 18.5 L (24-32.6) mmol/L Anion Gap 16.9 H (6.8-13.8) mmol/L Est GFR (Non-Af Amer) 52 L D (60-130) mL/min - Exam Constitutional: Present: Alert - AAO x 1, Elderly ENT Exam: Present: hard of hearing Neck: Present: supple Respiratory: Present: decreased breath sounds, No rales, No wheezing Cardiovascular/Chest: Present: regular rate, rhythm, no JVD, no murmur Abdomen: Present: Normal bowel sounds, soft, nontender, nondistended Extremity: Present: no pedal edema, no calf tenderness Neurologic: Present: other - didifficult to do a follow up reassessment- does not follow commands and gets agitated Cauti Physician Documentation - Urinary Catheter Management Urethral (Romero) Date of Insertion: 09/13/17 Time of Insertion: 12:00 Date of Removal: 09/14/17 Time of Removal: 16:23 Assessment/Plan - Problems/Diagnosis (1) Failure of outpatient treatment Problem: Acute Narrative: Pseudomonas UTI. on IV cefepime (2) Left-sided weakness Problem: Acute Narrative: suspected CVA. (3) UTI (urinary tract infection) Problem: Acute (4) COPD (chronic obstructive pulmonary disease) Problem: Chronic Qualifiers: COPD type: unspecified COPD Qualified Code(s): J44.9 - Chronic obstructive pulmonary disease, unspecified (5) Dementia Problem: Chronic Qualifiers: Dementia type: Alzheimer's disease Alzheimer's disease onset: late-onset Dementia behavioral disturbance: with behavioral disturbance Qualified Code(s) : G30.1 - Alzheimer's disease with late onset; F02.81 - Dementia in other diseases classified elsewhere with behavioral disturbance Narrative: will resatart his haldol and sertraline. 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
[2017-09-16] MEDS: ENOXAPARIN SODIUM 40 MG/0.4 ML SYRG SC SCH (09:50)
[2017-09-16] MEDS: CEFEPIME HCL 1 GM in NORMAL SALINE 100 ML IV SCH (10:10)
--- NOTE | 2017-09-16 15:35 | ECHO ---
This report is available in the EMR
[2017-09-17] MEDS: ENALAPRILAT DIHYDRATE 1.25 MG/ML VIAL IV SCH ×3 (04:51→16:36)
[2017-09-17] MEDS: DEXTROSE 5%-0.5 NORMAL SALINE 1,000 ML IV PRN ×2 (07:54→21:26)
[2017-09-17] MEDS: NYSTATIN 30 APPL TUBE TP SCH ×2 (08:50→20:28)
[2017-09-17] MEDS: ASPIRIN 81 MG TAB.CHEW PO SCH (08:50)
[2017-09-17] MEDS: ENOXAPARIN SODIUM 40 MG/0.4 ML SYRG SC SCH (08:50)
[2017-09-17] MEDS: COLLAGENASE CLOSTRIDIUM HIST. 30 APPL TUBE TP SCH (08:50)
[2017-09-17] MEDS: HALOPERIDOL 1 MG TABLET PO SCH ×2 (08:50→20:28)
[2017-09-17] MEDS: CEFEPIME HCL 1 GM in NORMAL SALINE 100 ML IV SCH (10:06)
--- NOTE | 2017-09-17 10:52 | PN ---
Subjective - Date and Time Seen Date: 09/17/17 Time: 10:49 Subjective Narrative: Patient is sleepy. Day 5 of IV antibiotics. Day # 4 of IV cefepime . Objective - Review of Systems Misc: All systems neg except as marked - Unable to obtain ROS- - Vitals Vitals: Last Vital Signs Temp 36.7 C 09/17/17 10:00 Pulse 60 09/17/17 10:06 Resp 20 09/17/17 10:00 BP 141/52 09/17/17 10:06 Pulse Ox 97 09/17/17 10:00 - Exam Constitutional: Present: Alert - AAO x 1 ENT Exam: Present: hard of hearing Neck: Present: supple Respiratory: Present: decreased breath sounds, No rales, No wheezing Cardiovascular/Chest: Present: regular rate, rhythm, no JVD, no murmur Abdomen: Present: soft, nontender, nondistended Extremity: Present: no calf tenderness, pedal edema Cauti Physician Documentation - Urinary Catheter Management Urethral (Romero) Date of Insertion: 09/13/17 Time of Insertion: 12:00 Date of Removal: 09/14/17 Time of Removal: 16:23 Assessment/Plan - Problems/Diagnosis (1) Failure of outpatient treatment Problem: Acute (2) Left-sided weakness Problem: Suspected Narrative: suspected CVA (3) UTI (urinary tract infection) Problem: Acute Narrative: Pseudomonas UTI. (4) COPD (chronic obstructive pulmonary disease) Problem: Chronic Qualifiers: COPD type: unspecified COPD Qualified Code(s): J44.9 - Chronic obstructive pulmonary disease, unspecified (5) Dementia Problem: Chronic Qualifiers: Dementia type: Alzheimer's disease Alzheimer's disease onset: late-onset Dementia behavioral disturbance: with behavioral disturbance Qualified Code(s) : G30.1 - Alzheimer's disease with late onset; F02.81 - Dementia in other diseases classified elsewhere with behavioral disturbance (6) HTN (hypertension) Problem: Chronic Qualifiers: Hypertension type: essential hypertension Qualified Code(s): I10 - Essential (primary) hypertension (7) Rheumatoid arthritis Problem: Chronic Qualifiers: Rheumatoid arthritis location: multiple sites Rheumatoid factor presence: with rheumatoid factor Qualified Code(s): 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
[2017-09-18] MEDS: ENALAPRILAT DIHYDRATE 1.25 MG/ML VIAL IV SCH ×2 (04:14)
[2017-09-18] MEDS: NYSTATIN 30 APPL TUBE TP SCH ×2 (09:17→21:30)
[2017-09-18] MEDS: LISINOPRIL 20 MG TABLET PO SCH ×2 (09:18→10:50)
[2017-09-18] MEDS: ENOXAPARIN SODIUM 40 MG/0.4 ML SYRG SC SCH (09:18)
[2017-09-18] MEDS: HALOPERIDOL 1 MG TABLET PO SCH ×2 (09:18→21:28)
[2017-09-18] MEDS: ASPIRIN 81 MG TAB.CHEW PO SCH (09:18)
[2017-09-18] MEDS: COLLAGENASE CLOSTRIDIUM HIST. 30 APPL TUBE TP SCH (09:20)
--- NOTE | 2017-09-18 10:18 | PN ---
Subjective - Date and Time Seen Date: 09/18/17 Time: 10:15 Subjective Narrative: Said he was fine when aske how he was doing. As per physiotherapy aide he is a complete Kathi lift. less behavioral outburst. Objective - Review of Systems Misc: All systems neg except as marked - ROS is unreliable due to patient's dementia. - Vitals Vitals: Last Vital Signs Temp 36.9 C 09/18/17 07:32 Pulse 67 09/18/17 09:18 Resp 24 H 09/18/17 07:32 BP 163/92 09/18/17 09:18 Pulse Ox 93 09/18/17 07:32 - Exam Constitutional: Present: Alert - AAO x 1 ENT Exam: Present: hard of hearing Neck: Present: supple Respiratory: Present: decreased breath sounds, wheezing, No rales Cardiovascular/Chest: Present: regular rate, rhythm, no JVD, no murmur Abdomen: Present: Normal bowel sounds, soft, nontender, nondistended Extremity: Present: no pedal edema, no calf tenderness Cauti Physician Documentation - Urinary Catheter Management Urethral (Romero) Date of Insertion: 09/13/17 Time of Insertion: 12:00 Date of Removal: 09/14/17 Time of Removal: 16:23 Assessment/Plan - Problems/Diagnosis (1) Failure of outpatient treatment Problem: Acute (2) Left-sided weakness Problem: Suspected Narrative: PT/OT not able to eval and treat im as he does not follow command and inow a Kathi lift. (3) UTI (urinary tract infection) Problem: Acute Narrative: Pseudomonas UTI Day 5 IV cefepime. continue for 2 more days. (4) COPD (chronic obstructive pulmonary disease) Problem: Chronic Qualifiers: COPD type: unspecified COPD Qualified Code(s): J44.9 - Chronic obstructive pulmonary disease, unspecified (5) Dementia Problem: Chronic Qualifiers: Dementia type: Alzheimer's disease Alzheimer's disease onset: late-onset Dementia behavioral disturbance: with behavioral disturbance Qualified Code(s) : G30.1 - Alzheimer's disease with late onset; F02.81 - Dementia in other diseases classified elsewhere with behavioral disturbance (6) HTN (hypertension) Problem: Chronic Qualifiers: Hypertension type: essential hypertension Qualified Code(s): I10 - Essential (primary) hypertension (7) Rheumatoid arthritis Problem: Chronic Qualifiers: Rheumatoid arthritis location: multiple sites Rheumatoid factor presence: with rheumatoid factor Qualified Code(s): 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
[2017-09-18] MEDS: CEFEPIME HCL 1 GM in NORMAL SALINE 100 ML IV SCH (11:05)
[2017-09-18] MEDS: DEXTROSE 5%-0.5 NORMAL SALINE 1,000 ML IV PRN (11:26)
[2017-09-19] MEDS: DEXTROSE 5%-0.5 NORMAL SALINE 1,000 ML IV PRN (01:40)
--- NOTE | 2017-09-19 08:36 | PN ---
Subjective - Date and Time Seen Date: 09/19/17 Time: 08:31 Subjective Narrative: Patient is awake. Scratching is RUE. Objective - Review of Systems Misc: All systems neg except as marked - ROS is unobtainable. - Vitals Vitals: Last Vital Signs Temp 36.4 C L 09/19/17 07:50 Pulse 72 09/19/17 07:50 Resp 20 09/19/17 07:50 BP 142/68 09/19/17 07:50 Pulse Ox 98 09/19/17 07:50 Cauti Physician Documentation - Urinary Catheter Management Urethral (Romero) Date of Insertion: 09/13/17 Time of Insertion: 12:00 Date of Removal: 09/14/17 Time of Removal: 16:23 Assessment/Plan - Problems/Diagnosis (1) Failure of outpatient treatment Problem: Acute (2) Left-sided weakness Problem: Suspected Narrative: Kathi lift. (3) UTI (urinary tract infection) Problem: Acute Narrative: Day 7 of IV Cefepime fopr Pseudomonas UTI. (4) COPD (chronic obstructive pulmonary disease) Problem: Chronic Qualifiers: COPD type: unspecified COPD Qualified Code(s): J44.9 - Chronic obstructive pulmonary disease, unspecified (5) Dementia Problem: Chronic Qualifiers: Dementia type: Alzheimer's disease Alzheimer's disease onset: late-onset Dementia behavioral disturbance: with behavioral disturbance Qualified Code(s) : G30.1 - Alzheimer's disease with late onset; F02.81 - Dementia in other diseases classified elsewhere with behavioral disturbance Narrative: awaiting NH placement. 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
[2017-09-19] MEDS ORDERED: CETIRIZINE HCL 1 MG/ML PO SCH (08:45)
[2017-09-19] MEDS: ASPIRIN 81 MG TAB.CHEW PO SCH (09:22)
[2017-09-19] MEDS: LISINOPRIL 20 MG TABLET PO SCH (09:22)
[2017-09-19] MEDS: NYSTATIN 30 APPL TUBE TP SCH ×2 (09:22→21:17)
[2017-09-19] MEDS: MINERAL OIL/PETROLATUM,WHITE 454 APPL JAR TP SCH ×3 (09:22→21:18)
[2017-09-19] MEDS: LORATADINE 5 MG/5 ML PO SCH (09:22)
[2017-09-19] MEDS: HALOPERIDOL 1 MG TABLET PO SCH ×2 (09:22→21:18)
[2017-09-19] MEDS: ENOXAPARIN SODIUM 40 MG/0.4 ML SYRG SC SCH (09:23)
[2017-09-19] MEDS: COLLAGENASE CLOSTRIDIUM HIST. 30 APPL TUBE TP SCH (09:23)
[2017-09-19] MEDS: CEFEPIME HCL 1 GM in NORMAL SALINE 100 ML IV SCH (10:13)
[2017-09-20] MEDS: METOPROLOL SUCCINATE 25 MG TABLET.SA PO SCH ×2 (04:09→09:22)
[2017-09-20] MEDS: DEXTROSE 5%-0.5 NORMAL SALINE 1,000 ML IV PRN ×2 (04:52→18:54)
[2017-09-20] MEDS: LISINOPRIL 40 MG TABLET PO SCH ×2 (07:08→09:22)
[2017-09-20] MEDS: ASPIRIN 81 MG TAB.CHEW PO SCH (09:20)
[2017-09-20] MEDS: HYDROPHILIC OINTMENT 454 APPL JAR TP PRN ×2 (09:21→20:10)
[2017-09-20] MEDS: LORATADINE 5 MG/5 ML PO SCH (09:21)
[2017-09-20] MEDS: HALOPERIDOL 1 MG TABLET PO SCH ×2 (09:23→20:09)
[2017-09-20] MEDS: NYSTATIN 30 APPL TUBE TP SCH ×2 (09:23→20:10)
[2017-09-20] MEDS: COLLAGENASE CLOSTRIDIUM HIST. 30 APPL TUBE TP SCH (09:23)
[2017-09-20] MEDS: MINERAL OIL/PETROLATUM,WHITE 454 APPL JAR TP SCH ×2 (09:23→20:10)
[2017-09-20] MEDS: ENOXAPARIN SODIUM 40 MG/0.4 ML SYRG SC SCH (09:24)
[2017-09-20] MEDS: CEFEPIME HCL 1 GM in NORMAL SALINE 100 ML IV SCH (11:21)
--- NOTE | 2017-09-20 12:00 | PN ---
Subjective - Date and Time Seen Date: 09/20/17 Time: 11:54 Subjective Narrative: patient is AAO x 1. the son is in the room. He feels that his dad is trying to say something but could not express it to him completely. Objective - Review of Systems Misc: All systems neg except as marked - ROS is unobtainable - Vitals Vitals: Last Vital Signs Temp 36.6 C 09/20/17 10:12 Pulse 69 09/20/17 10:12 Resp 18 09/20/17 10:12 BP 137/60 09/20/17 10:12 Pulse Ox 98 09/20/17 10:12 - Exam Constitutional: Present: Alert - AAO x 1., Elderly ENT Exam: Present: hard of hearing Neck: Present: supple Respiratory: Present: decreased breath sounds, No rales, No wheezing Cardiovascular/Chest: Present: no JVD, no murmur, irregularly irregular Abdomen: Present: Normal bowel sounds, soft, nontender, nondistended Extremity: Present: normal inspection, no calf tenderness Cauti Physician Documentation - Urinary Catheter Management Urethral (Romero) Date of Insertion: 09/13/17 Time of Insertion: 12:00 Date of Removal: 09/14/17 Time of Removal: 16:23 Assessment/Plan - Problems/Diagnosis (1) Failure of outpatient treatment Problem: Acute (2) UTI (urinary tract infection) Problem: Acute Narrative: Pseudomonas UTI on IV Cefepime day # 7. (3) CVA (cerebral vascular accident) Problem: Acute Qualifiers: CVA mechanism: unspecified Qualified Code(s): I63.9 - Cerebral infarction, unspecified Narrative: unable to do PT/OT. does not follow their commands. (4) COPD (chronic obstructive pulmonary disease) Problem: Suspected Qualifiers: COPD type: unspecified COPD Qualified Code(s): J44.9 - Chronic obstructive pulmonary disease, unspecified (5) Dementia Problem: Chronic Qualifiers: Dementia type: Alzheimer's disease Alzheimer's disease onset: late-onset Dementia behavioral disturbance: with behavioral disturbance Qualified Code(s) : G30.1 - Alzheimer's disease with late onset; F02.81 - Dementia in other diseases classified elsewhere with behavioral disturbance (6) HTN (hypertension) Problem: Chronic Qualifiers: Hypertension type: essential hypertension Qualified Code(s): I10 - Essential (primary) hypertension Narrative: lisinorpil dose doubled. 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
[2017-09-21 06:31] VITALS: BP 133/58
--- NOTE | 2017-09-21 08:14 | DS ---
(1) Failure of outpatient treatment Problem: Acute (2) UTI (urinary tract infection) Diagnosis(s): had 7 days of IV cefepime for Pseudomonas UTI Problem: Acute (3) CVA (cerebral vascular accident) Diagnosis(s): will have PT/OT/ST in NH Problem: Suspected Qualifiers: CVA mechanism: unspecified Qualified Code(s): I63.9 - Cerebral infarction, unspecified (4) COPD (chronic obstructive pulmonary disease) Problem: Suspected Qualifiers: COPD type: unspecified COPD Qualified Code(s): J44.9 - Chronic obstructive pulmonary disease, unspecified (5) Dementia Problem: Chronic Qualifiers: Dementia type: Alzheimer's disease Alzheimer's disease onset: late-onset Dementia behavioral disturbance: with behavioral disturbance Qualified Code(s) : G30.1 - Alzheimer's disease with late onset; F02.81 - Dementia in other diseases classified elsewhere with behavioral disturbance (6) HTN (hypertension) Problem: Chronic Qualifiers: Hypertension type: essential hypertension Qualified Code(s): I10 - Essential (primary) hypertension (7) Rheumatoid arthritis Problem: Chronic Qualifiers: Rheumatoid arthritis location: multiple sites Rheumatoid factor presence: with rheumatoid factor Qualified Code(s): 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 The patient was a poor historian and I was not able to obtain history from him. He opened his eyes with name call but would not answer any of my questions. The history was based on emergency room notes- "Patient presents to the ED via EMS. He is unable to provide Hx. By report being treated for UTI, failing treatment. states poor speech since Tuesday and Left sided weakness since yesterday Morning. No fever or vomiting. 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 His urine C & S grew Pseuodomonas. IV cefepime was started. MRI of his head was ordered but could not be done due to his cochlear implant. 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 His Echo showed mild LVH, normal EF, RSVP 38 and negative Bubble study. He was started back on his BP medicaine and ASA. Procedures Performed: none Discharge Disposition: [facility] Disposition: Still a patient Condition: Fair Discharge Activity: Activity as tolerated Discharge Diet: Low salt Correction Therapy: Physicial Therapy, Occupation Therapy, Speech Therapy Additional Patient Instructions (free text): Need to establish with a PCP as I don't go to [facility]. Complete Home Medications List: Complete Home Medication List: Sertraline HCl [Zoloft] 25 mg PO DAILY #30 tablet 07/19/17 Haloperidol [Haldol] 1 mg PO BID 09/13/17 Haloperidol [Haldol] 2 mg PO HS 09/13/17 Aspirin [Aspirin Chewable] 81 mg PO DAILY tab.chew 09/21/17 Collagenase Clostridium Hist. [Santyl] 1 appl TP DAILY tube 09/21/17 Hydrophilic Ointment [Aquaphilic Ointment] 1 appl TP BID PRN jar 09/21/17 Lisinopril [Zestril] 40 mg PO DAILY tablet 09/21/17 Loratadine [Claritin Syrup] 5 mg PO DAILY btl 09/21/17 Metoprolol Succinate [Toprol Xl] 25 mg PO DAILY #0 tablet.sa 09/21/17 Mineral Oil/Petrolatum,White [Eucerin] 1 appl TP BID jar 09/21/17 Nystatin [Mycostatin Cream] 1 appl TP BID tube 09/21/17
[2017-09-21] MEDS: ENOXAPARIN SODIUM 40 MG/0.4 ML SYRG SC SCH (09:43)
[2017-09-21] MEDS: LISINOPRIL 40 MG TABLET PO SCH (09:44)
[2017-09-21] MEDS: METOPROLOL SUCCINATE 25 MG TABLET.SA PO SCH (09:44)
[2017-09-21] MEDS: ASPIRIN 81 MG TAB.CHEW PO SCH (09:44)
[2017-09-21] MEDS: HALOPERIDOL 1 MG TABLET PO SCH (09:44)
[2017-09-21] MEDS: LORATADINE 5 MG/5 ML PO SCH (09:45)
[2017-09-21] MEDS: NYSTATIN 30 APPL TUBE TP SCH (09:45)
[2017-09-21] MEDS: MINERAL OIL/PETROLATUM,WHITE 454 APPL JAR TP SCH (09:45)
== END 2017-09-21 10:10 | DRG 65 ==
LOC: ER 10:00 → MS 12:40
PROVIDERS: ADMIT Internal Medicine; ATTEND Internal Medicine
PROC: 0T9B7ZZ Drainage of Bladder, Via Natural or Artificial Opening (ICD-10-PCS; principal; 2017-09-13)
PROC: B246ZZZ Ultrasonography of Right and Left Heart (ICD-10-PCS; 2017-09-14)
DX: R29.810 Facial weakness; F02.81 Dementia in other diseases classified elsewhere, unspecified severity, with behavioral disturbance; I63.9 Cerebral infarction, unspecified; L89.212 Pressure ulcer of right hip, stage 2; M05.79 Rheumatoid arthritis with rheumatoid factor of multiple sites without organ or systems involvement; N39.0 Urinary tract infection, site not specified; G81.94 Hemiplegia, unspecified affecting left nondominant side; G30.1 Alzheimer's disease with late onset; I10 Essential (primary) hypertension; B96.5 Pseudomonas (aeruginosa) (mallei) (pseudomallei) as the cause of diseases classified elsewhere